=== PATIENT | male | born 1950 | race Caucasian/White ===

== ENCOUNTER 2017-05-27 08:22 | Emergency (ER) | payer MEDICARE, BC ==
[~2017-05-27] VITALS: Ht 170.2 cm; Wt 74.8 kg
[~2017-05-27 08:22] MED LIST: ALBU.083IS IH; ALBU3IS; ALBU3IS INH; ALBU90OI; ALBU90OI INH; ALBU90OI6 INH; ALBUIS IH; ALBUTEROL NEB; ALEN70 PO; ASPI81CH PO; AZIT250 PO; AZIT500 PO; Augmentin 500-1 EACH PO; BENZ100A PO; BUDE6HFA INH; Bactrim Ds Tab1 EACH PO; CEFP200 PO; CEPH500 PO; CITA20 PO; CLIN300; DIAZ2 PO; DOCU100 PO; DOXY100 PO; EQ EYE ALLERGY15 ML OP; FAMO20 PO; FLUT44OIA; FURO20 PO; GUAI600T33 PO; GUAIFENESIN-CODE5 ML PO; HYDACE5 PO; HYDPAM50 PO; IBUP600 PO; KETO5OP; KETO5OP XX; LEVFLO500 PO; LEVOFLOXACIN750 MG PO; MUCUS ER600 M1 PO; NASACORT10.8 ML; NYST100SU; NYST100SU MT; NYST100SU PO; NYSTATIN PO; Norco 5-325 Ta1 EACH PO; OFEV150 MG PO; OXYACE5T PO; POLY17UD PO; PRED10 PO; PRED20; PRED20 PO; Prednisone20 MG PO; Prilosec Otc20 MG PO; ROBITUSSIN PO; SACC250C; SILD25T PO; SILDENAFIL20 MG PO; SODCHL.65S; SULTRIDS; SULTRIDS PO; SULTRISS; Sulfamethoxazo1 EAC4 PO; Symbicort 16010.2 GM; TIOT18 INH; Ventolin Soln3 ML; Zithromax250 MG PO
[2017-05-27 09:28] LABS: Hematocrit 33.4 % (37.0-53.0); Hemoglobin 10.6 g/dL (13.5-17.5); Mean Corpuscular HGB 31.5 pg (26.0-34.0); Mean Corpuscular HGB Conc 31.7 g/dL (31.5-36.5); Mean Corpuscular Volume 99 fL (80-100); Mean Platelet Volume 9.7 fL (9.1-12.4); Platelet Count 190 K/mm3 (150-400); Red Blood Cell Count 3.37 M/mm3 (4.30-5.90); White Blood Cell Count 7.87 K/mm3 (4.00-11.30)
[2017-05-27] MEDS ORDERED: MYCO250 PO (09:41)
[2017-05-27] MEDS ORDERED: ALEN70 PO (09:41)
[2017-05-27] MEDS ORDERED: TAMS.4ER PO (09:42)
[2017-05-27] MEDS ORDERED: FLUC200 PO (09:42)
[2017-05-27] MEDS ORDERED: TACR1 PO (09:42)
[2017-05-27 09:44] LABS: Alanine Aminotransfer (ALT/SGP 20 U/L (12-78); Albumin, Blood 3.7 g/dL (3.4-5.0); Albumin/Globulin Ratio 1.1 (0.8-1.8); Alk Phos 70 U/L (50-136); Anion Gap 8 mmol/L (6-16); Aspartate Aminotrans (AST/SGOT 16 U/L (12-37); Bilirubin, Total 0.3 mg/dL (0.1-1.0); Blood Urea Nitrogen 19 mg/dL (8-24); Bun/Creatinine Ratio 14.8 (12.0-20.0); CO2, Blood 18 mmol/L (21-32); Calcium, Blood 8.2 mg/dL (8.5-10.1); Chloride, Blood 114 mmol/L (98-108); Creatinine, Blood 1.28 mg/dL (0.60-1.20); Globulin, Blood 3.5 g/dL (2.2-4.0); Glomerular Filtration Rate 60 (60-); Glucose, Blood 116 mg/dL (70-99); Sodium, Blood 140 mmol/L (136-145); Total Protein, Blood 7.2 g/dL (6.4-8.2); Troponin I <0.015 ng/mL (0.000-0.040)
[2017-05-27] MEDS ORDERED: Omeprazole20 M1 PO (09:44)
[2017-05-27] MEDS ORDERED: Aspirin EC81 MG PO (09:44)
[2017-05-27] MEDS ORDERED: ALBU2.5V5 NEB (09:45)
[2017-05-27] MEDS ORDERED: LEVSOD100 PO (09:45)
[2017-05-27] MEDS ORDERED: MELA3 PO (09:45)
[2017-05-27 09:52] LABS: BAND PERCENT MAN 3 % (0-8); BASOPHILS PERCENT MAN 0 % (0-2); EOSINOPHILS ABSOLUTE MAN 0.07 K/mm3 (0.00-0.68); EOSINOPHILS PERCENT MAN 1 % (0-6); LYMPHOCYTES ABSOLUTE MAN 0.23 K/mm3 (0.84-5.20); LYMPHOCYTES PERCENT MAN 3 % (21-46); MONOCYTES ABSOLUTE MAN 0.62 K/mm3 (0.16-1.47); MONOCYTES PERCENT MAN 8 % (4-13); NEUTROPHILS ABSOLUTE MAN 6.92 K/mm3 (1.96-9.15); SEG NEUTROPHILS PERCENT MAN 85 % (41-73); TOTAL CELLS COUNTED 100
[2017-05-27] MEDS ORDERED: Zofran4 MG PO (11:01)
[2017-09-14] MEDS ORDERED: Bactrim Ds Tab1 EACH PO (16:16)
[2017-09-14] MEDS ORDERED: AZIT250 PO (16:16)
[2017-09-14] MEDS ORDERED: Mucinex600 MG PO (17:51)
== END 2017-05-27 11:25 | disposition home or self-care (01) ==
LOC: ER 08:22
PROVIDERS: Physician Assistant
DX: J40 Bronchitis, not specified as acute or chronic (principal); R11.2 Nausea with vomiting, unspecified; Z91.14 Patient's other noncompliance with medication regimen; Z79.82 Long term (current) use of aspirin; Z79.52 Long term (current) use of systemic steroids; Z79.899 Other long term (current) drug therapy; Z79.51 Long term (current) use of inhaled steroids; Z87.01 Personal history of pneumonia (recurrent); Z87.891 Personal history of nicotine dependence; Z94.2 Lung transplant status
CPT/HCPCS: 36415; 71046; 80053; 83605; 84484; 85025; 87040; 93005; 93010; 94640; 96361; 96374; 99284; J2405; J7030

== ENCOUNTER 2017-11-20 19:26 | Emergency (ER) | payer MEDICARE ==
[~2017-11-20] VITALS: Ht 167.6 cm; Wt 88.5 kg
[~2017-11-20 19:26] MED LIST changes: +ALBU2.5V5 NEB; +Aspirin EC81 MG PO; +FLUC200 PO; +LEVSOD100 PO; +MELA3 PO; +MYCO250 PO; +Mucinex600 MG PO; +Omeprazole20 M1 PO; +TACR1 PO; +TAMS.4ER PO; +Zofran4 MG PO
[2017-11-20] MEDS ORDERED: MELA3 PO (19:41)
[2017-11-20] MEDS ORDERED: Hair, Skin & N1 EACH PO (19:42)
[2017-11-20] MEDS ORDERED: CHOL10002 PO (19:42)
[2017-11-20 20:10] LABS: BASOPHILS ABSOLUTE AUTO 0.02 K/mm3 (0.00-0.23); BASOPHILS PERCENT AUTO 1 % (0-2); EOSINOPHILS ABSOLUTE AUTO 0.03 K/mm3 (0.00-0.68); EOSINOPHILS PERCENT AUTO 1 % (0-6); Hematocrit 32.9 % (37.0-53.0); Hemoglobin 10.9 g/dL (13.5-17.5); IMMATURE GRAN ABSOLUTE AUTO 0.13 K/mm3 (0.00-0.10); IMMATURE GRAN PERCENT AUTO 3 % (0-1); LYMPHOCYTES ABSOLUTE AUTO 0.92 K/mm3 (0.84-5.20); LYMPHOCYTES PERCENT AUTO 23 % (21-46); MONOCYTES ABSOLUTE AUTO 0.52 K/mm3 (0.16-1.47); MONOCYTES PERCENT AUTO 13 % (4-13); Mean Corpuscular HGB 31.6 pg (26.0-34.0); Mean Corpuscular HGB Conc 33.1 g/dL (31.5-36.5); Mean Corpuscular Volume 95 fL (80-100); Mean Platelet Volume 9.2 fL (9.1-12.4); NEUTROPHILS ABSOLUTE AUTO 2.32 K/mm3 (1.96-9.15); NEUTROPHILS PERCENT AUTO 59 % (41-73); Platelet Count 194 K/mm3 (150-400); RDW Coefficient Variation 12.4 % (11.7-14.2); RDW Standard Deviation 42.9 fL (35.1-46.3); Red Blood Cell Count 3.45 M/mm3 (4.30-5.90); White Blood Cell Count 3.94 K/mm3 (4.00-11.30)
[2017-11-20 20:30] LABS: Albumin, Blood 3.8 g/dL (3.4-5.0); Albumin/Globulin Ratio 1.2 (0.8-1.8); Bilirubin, Total 0.3 mg/dL (0.1-1.0); Bun/Creatinine Ratio 15.8 (12.0-20.0); Calcium, Blood 7.9 mg/dL (8.5-10.1); Creatinine, Blood 1.39 mg/dL (0.60-1.20); Globulin, Blood 3.3 g/dL (2.2-4.0); Total Protein, Blood 7.1 g/dL (6.4-8.2)
== END 2017-11-20 21:29 | disposition home or self-care (01) ==
LOC: ER 19:26
PROVIDERS: Physician Assistant
DX: M54.5 Low back pain (principal); G89.29 Other chronic pain; K21.9 Gastro-esophageal reflux disease without esophagitis; Z87.891 Personal history of nicotine dependence; Z79.899 Other long term (current) drug therapy; Z79.51 Long term (current) use of inhaled steroids; Z79.52 Long term (current) use of systemic steroids
CPT/HCPCS: 36415; 76770; 80053; 83690; 85025; 96361; 96374; 96375; 99284-25; J1885; J3010; J7030

== ENCOUNTER 2018-04-26 11:51 | Emergency (ER) | payer MEDICARE ==
[~2018-04-26] VITALS: Ht 167.6 cm; Wt 83.9 kg
[~2018-04-26 11:51] MED LIST changes: +CHOL10002 PO; +Hair, Skin & N1 EACH PO
[2018-04-26 12:34] LABS: BASOPHILS ABSOLUTE AUTO 0.07 K/mm3 (0.00-0.23); BASOPHILS PERCENT AUTO 1 % (0-2); EOSINOPHILS ABSOLUTE AUTO 0.14 K/mm3 (0.00-0.68); EOSINOPHILS PERCENT AUTO 2 % (0-6); Hematocrit 39.3 % (37.0-53.0); Hemoglobin 13.2 g/dL (13.5-17.5); IMMATURE GRAN ABSOLUTE AUTO 0.25 K/mm3 (0.00-0.10); IMMATURE GRAN PERCENT AUTO 3 % (0-1); LYMPHOCYTES ABSOLUTE AUTO 1.89 K/mm3 (0.84-5.20); LYMPHOCYTES PERCENT AUTO 21 % (21-46); MONOCYTES ABSOLUTE AUTO 1.55 K/mm3 (0.16-1.47); MONOCYTES PERCENT AUTO 17 % (4-13); Mean Corpuscular HGB Conc 33.6 g/dL (31.5-36.5); Mean Corpuscular Volume 98 fL (80-100); Mean Platelet Volume 9.3 fL (9.1-12.4); NEUTROPHILS ABSOLUTE AUTO 5.31 K/mm3 (1.96-9.15); NEUTROPHILS PERCENT AUTO 58 % (41-73); Platelet Count 233 K/mm3 (150-400); White Blood Cell Count 9.21 K/mm3 (4.00-11.30)
[2018-04-26 12:49] LABS: Albumin, Blood 3.7 g/dL (3.4-5.0); Albumin/Globulin Ratio 0.9 (0.8-1.8); Bilirubin, Total 0.4 mg/dL (0.1-1.0); Bun/Creatinine Ratio 14.1 (12.0-20.0); Calcium, Blood 8.7 mg/dL (8.5-10.1); Creatinine, Blood 1.35 mg/dL (0.60-1.20); Globulin, Blood 3.9 g/dL (2.2-4.0); Potassium, Blood 4.2 mmol/L (3.5-5.5); Total Protein, Blood 7.6 g/dL (6.4-8.2)
[2018-04-26] MEDS ORDERED: ONDA4ODT MM (12:59)
[2018-04-26] MEDS ORDERED: GUAI600T33 PO (12:59)
[2018-04-26] MEDS ORDERED: Bactrim Ds Tab1 EACH PO (13:00)
[2018-04-26] MEDS ORDERED: ASPI325 PO (13:00)
[2018-04-26] MEDS ORDERED: Cleocin HCl300 MG PO (15:37)
== END 2018-04-26 15:59 | disposition home or self-care (01) ==
LOC: ER 11:51
PROVIDERS: Emergency Medicine
DX: L03.311 Cellulitis of abdominal wall (principal); L02.211 Cutaneous abscess of abdominal wall; Z79.899 Other long term (current) drug therapy; Z79.52 Long term (current) use of systemic steroids; Z79.82 Long term (current) use of aspirin; K21.9 Gastro-esophageal reflux disease without esophagitis
CPT/HCPCS: 10061; 36415; 80053; 85025; 87070; 87075; 87205; 96374-59; 96375-59; 99283-25; J2405; J3010

== ENCOUNTER 2018-08-18 06:30 | Observation (INO) | payer MEDICARE ==
[~2018-08-18] VITALS: Ht 167.6 cm; Wt 83.1 kg
[~2018-08-18 06:30] MED LIST changes: -CHOL10002 PO; +Cleocin HCl300 MG PO; -Hair, Skin & N1 EACH PO; -LEVSOD100 PO; +LEVSOD112 PO; +ONDA4ODT MM; +PRED5 PO
[2018-08-18 07:03] LABS: Albumin, Blood 3.7 g/dL (3.4-5.0); Albumin/Globulin Ratio 1.1 (0.8-1.8); Bilirubin, Total 0.3 mg/dL (0.1-1.0); Calcium, Blood 8.3 mg/dL (8.5-10.1); Creatinine, Blood 1.44 mg/dL (0.60-1.20); Globulin, Blood 3.3 g/dL (2.2-4.0); Potassium, Blood 4.1 mmol/L (3.5-5.5)
[2018-08-18 07:05] LABS: BASOPHILS ABSOLUTE AUTO 0.03 K/mm3 (0.00-0.23); BASOPHILS PERCENT AUTO 0 % (0-2); EOSINOPHILS ABSOLUTE AUTO 0.12 K/mm3 (0.00-0.68); EOSINOPHILS PERCENT AUTO 2 % (0-6); Hematocrit 33.8 % (37.0-53.0); Hemoglobin 11.4 g/dL (13.5-17.5); IMMATURE GRAN PERCENT AUTO 2 % (0-1); LYMPHOCYTES ABSOLUTE AUTO 1.42 K/mm3 (0.84-5.20); LYMPHOCYTES PERCENT AUTO 21 % (21-46); MONOCYTES ABSOLUTE AUTO 0.66 K/mm3 (0.16-1.47); MONOCYTES PERCENT AUTO 10 % (4-13); Mean Corpuscular HGB 31.6 pg (26.0-34.0); Mean Corpuscular HGB Conc 33.7 g/dL (31.5-36.5); Mean Corpuscular Volume 94 fL (80-100); Mean Platelet Volume 9.3 fL (9.1-12.4); NEUTROPHILS ABSOLUTE AUTO 4.46 K/mm3 (1.96-9.15); NEUTROPHILS PERCENT AUTO 66 % (41-73); Platelet Count 212 K/mm3 (150-400); RDW Coefficient Variation 12.2 % (11.7-14.2); RDW Standard Deviation 41.9 fL (35.1-46.3); Red Blood Cell Count 3.61 M/mm3 (4.30-5.90); White Blood Cell Count 6.79 K/mm3 (4.00-11.30)
[2018-08-18] MEDS ORDERED: BREO ELLIPTA 11 EACH INH (07:18)
[2018-08-18] MEDS ORDERED: SIRO1 PO (07:18)
[2018-08-18] MEDS ORDERED: CALC.25 PO (12:13)
[2018-08-18] MEDS ORDERED: Bactrim 400-801 EACH PO (12:14)
[2018-08-18] MEDS ORDERED: AZIT250 PO (12:15)
[2018-08-18] MEDS ORDERED: Ketoconazole120 ML TOP (12:18)
[2018-08-18] MEDS ORDERED: VALGANCICLOVIR450 MG PO (12:19)
[2018-08-18] MEDS ORDERED: SERT25 PO (12:20)
[2018-08-18] MEDS ORDERED: Pantoprazole So40 MG PO (12:21)
[2018-08-18] MEDS ORDERED: TRAM50 PO (12:21)
[2018-08-18] MEDS ORDERED: ALBU90OI6 INH (12:25)
[2018-08-18] MEDS ORDERED: Flonase 0.05% N16 GM (12:28)
[2018-08-18] MEDS ORDERED: LO-DOSE ASPIRIN81 MG PO (14:08)
[2018-08-18] MEDS ORDERED: Hair, Skin & N1 EACH PO (14:09)
[2018-08-18] MEDS ORDERED: CHOL10002 PO (14:09)
[2018-08-18] MEDS ORDERED: MELA3 PO (14:09)
--- NOTE | 2018-08-18 15:08 | NUR ---
08/18/18 1508 Rob Lund History, Chart, Medications and Allergies reviewed before start of procedure.MONITOR INTACT WITH CONTINUOUS PULSE OXIMETRY AND INTERMITTENT BP.3-LEAD EKG REVIEWED WITH PHYSICIAN PRIOR TO START OF PROCEDURE.O2 VIA N/C INTACT THROUGHOUT SEDATION/PROCEDURE. Patient confirms NPO status and agrees with scheduled surgery.PATIENT DETERMINED TO BE ASA APPROPRIATE FOR PROPOFOL SEDATION PRIOR TO START OF PROCEDURE BY DR. STOCKTON.
--- NOTE | 2018-08-18 15:12 | NUR ---
1405 PT ADMITTED TO ICU -14 PCU PT AND MOVED TO BED FROM STRETCHER. PT IS QUITE ANXIOUS TALKING FAST AND SOMEWHAT OUT OF BREATH. PT IS ON RA AND RR 26-29 WITH SATS 96-7% WITH LUNGS COARSE T/O AND DIM IN R BASE. DR STOCKTON IS IN TO SEE PT AND ASSESS FOR NEED TO BRONCH YET TO BE DETERMINED. PT IN ROOM AND ASSISTING WITH PT HX. 1500 PT TO DAY SURG FOR BRONCH PER ASHLEY. PT SBP IS NOTED ELEVATED AND SEENS TO BE SOMEWHAT ANXIETY DRIVEN, WILL FOLLOW PT RETURNS.
--- NOTE | 2018-08-18 15:45 | NUR ---
PT RETURNED TO ICU-14 FROM DAY SURG. PT AND FAMILY TO TALK WITH DR STOCKTON. VS NOTED AND SUSAN FLORIAN.
[2018-08-18 18:09] LABS: Adenovirus Not Detected (NOT DETECT); Bordetella pertussis Not Detected (NOT DETECT); Chlamydophila pneumoniae Not Detected (NOT DETECT); Coronavirus 229E Not Detected (NOT DETECT); Coronavirus HKU1 Not Detected (NOT DETECT); Coronavirus NL63 Not Detected (NOT DETECT); Coronavirus OC43 Not Detected (NOT DETECT); Human Metapneumovirus Not Detected (NOT DETECT); Human Rhinovirus/Enterovirus Detected (NOT DETECT); Influenza A Not Detected (NOT DETECT); Influenza A/2009-H1 Not Detected (NOT DETECT); Influenza A/H1 Not Detected (NOT DETECT); Influenza A/H3 Not Detected (NOT DETECT); Influenza B Not Detected (NOT DETECT); Mycoplasma pneumoniae Not Detected (NOT DETECT); Parainfluenza Virus 1 Not Detected (NOT DETECT); Parainfluenza Virus 2 Not Detected (NOT DETECT); Parainfluenza Virus 3 Not Detected (NOT DETECT); Parainfluenza Virus 4 Not Detected (NOT DETECT); Respiratory Syncytial Virus Not Detected (NOT DETECT)
--- NOTE | 2018-08-18 18:46 | NUR ---
PT VS HAVE BEEN SL ELEVATED AT TIMES NOTED. PT HAS RECOVERED FROM BRONCH WELL AND TAKING PO W/O DISTRESS. FAMILY HAS BEEN IN AND PT REMAINS ANXIOUS. ATIVAN PO GIVEN NOTED. PT UP TO TOILET AND VOIDED, BUT SOB W/O DROP IN SATS BUT INC WOB. OTHERWWISE VERY TALKITIVE.
--- NOTE | 2018-08-18 21:00 | NUR ---
PT AWAKE, TALKING ON PHONE W FAMILY. PT NOTED W INCREASED WOB W CONVERSATION. DENIES SOB, PT SATS MID 90'S ON RA. USING FLUTTER VALVE & SELF SUCTIONS NEEDED. TAKING PO WO DIFFICULTY.
[2018-08-19 03:49] LABS: BASOPHILS ABSOLUTE AUTO 0.01 K/mm3 (0.00-0.23); BASOPHILS PERCENT AUTO 0 % (0-2); EOSINOPHILS PERCENT AUTO 0 % (0-6); Hematocrit 31.5 % (37.0-53.0); Hemoglobin 10.8 g/dL (13.5-17.5); IMMATURE GRAN ABSOLUTE AUTO 0.11 K/mm3 (0.00-0.10); IMMATURE GRAN PERCENT AUTO 1 % (0-1); LYMPHOCYTES ABSOLUTE AUTO 0.39 K/mm3 (0.84-5.20); LYMPHOCYTES PERCENT AUTO 3 % (21-46); MONOCYTES ABSOLUTE AUTO 0.54 K/mm3 (0.16-1.47); MONOCYTES PERCENT AUTO 4 % (4-13); Mean Corpuscular HGB 32.5 pg (26.0-34.0); Mean Corpuscular HGB Conc 34.3 g/dL (31.5-36.5); Mean Corpuscular Volume 95 fL (80-100); Mean Platelet Volume 9.5 fL (9.1-12.4); NEUTROPHILS ABSOLUTE AUTO 12.55 K/mm3 (1.96-9.15); NEUTROPHILS PERCENT AUTO 92 % (41-73); Platelet Count 184 K/mm3 (150-400); RDW Coefficient Variation 11.9 % (11.7-14.2); RDW Standard Deviation 41.7 fL (35.1-46.3); Red Blood Cell Count 3.32 M/mm3 (4.30-5.90)
--- NOTE | 2018-08-19 04:10 | NUR ---
PT HAS BEEN SLEEPING, WAS AWAKENED FOR UDN TX. UP TO VOID. DENIES NEEDS OR DISCOMFORT. CONT ON RA & USING FLUTTER VALVE NEEDED. VSS.
[2018-08-19 04:12] LABS: Albumin, Blood 3.3 g/dL (3.4-5.0); Albumin/Globulin Ratio 1.1 (0.8-1.8); Bilirubin, Total 0.4 mg/dL (0.1-1.0); Bun/Creatinine Ratio 21.2 (12.0-20.0); Calcium, Blood 7.8 mg/dL (8.5-10.1); Creatinine, Blood 1.56 mg/dL (0.60-1.20); Globulin, Blood 3.1 g/dL (2.2-4.0); Magnesium, Blood 2.1 mg/dL (1.6-2.4); Potassium, Blood 4.9 mmol/L (3.5-5.5); Total Protein, Blood 6.4 g/dL (6.4-8.2)
--- NOTE | 2018-08-19 07:00 | NUR ---
ASSUMED CARE OF PT. PT IS ALERT AND ORIENTED. NOTED TO HAVE SHORTNESS OF BREATH MOSTLY WITH ACTIVITY. PT IS ON 98% ON ROOM AIR. WILL FAICLITATE APPOINTMENT WITH TRANSPLANT TEAM IN [place].
--- NOTE | 2018-08-19 09:30 | NUR ---
SEEN BY DR. STOCKTON AND DR. CAPELLAN ON DIFFERENT TIMES. UPDATED THEM OF PT'S TRANSFER.
--- NOTE | 2018-08-19 11:30 | NUR ---
GOT A RESPONSE FROM TRANSPLANT TEAM IN [place]. PT HAVE AN APPOINTMENT WITH DR. ROSSI ON SEPTEMBER 11. RUEL STOCKTON, DR. CAPELLAN & TONEY FELL CUTTER WERE NOTIFIED REGARDING PT'S APPOINMENT WITH LUNG TRANSPLANT TEAM. PT WILL BE DISCHARGE TODAY.
[2018-08-19] MEDS ORDERED: ACET325 PO (14:36)
[2018-08-19] MEDS ORDERED: GUAI600T33 PO (14:38)
[2018-08-19] MEDS ORDERED: ONDA4ODT SL (14:49)
--- NOTE | 2018-08-19 16:00 | NUR ---
1553-PT WAS DISCHARGED AT THIS TIME. DISCHARGE INSTRUCTIONS WERE READ AND GIVEN TO PT AND SPOUSE. IV WAS DISCONTINUED.
[2018-08-20 17:06] LABS: CMV QUANT DNA PCR (PLASMA) Negative (Negative)
== END 2018-08-19 15:55 | disposition home or self-care (01) ==
LOC: ER 06:30 → ICUW 06:31 → ERHOLD 06:31 → ICUW 13:49
PROVIDERS: Emergency Medicine; Internal Medicine Critical Care Medicine; ADMIT Family Medicine
PROC: 0BJ08ZZ Inspection of Tracheobronchial Tree, Via Natural or Artificial Opening Endoscopic (ICD-10-PCS; principal; 2018-08-18 15:00)
DX: J96.21 Acute and chronic respiratory failure with hypoxia (principal); N18.3 Chronic kidney disease, stage 3 (moderate); F41.9 Anxiety disorder, unspecified; K21.9 Gastro-esophageal reflux disease without esophagitis; E03.9 Hypothyroidism, unspecified; G47.33 Obstructive sleep apnea (adult) (pediatric); I27.20 Pulmonary hypertension, unspecified; Z99.89 Dependence on other enabling machines and devices; Z87.891 Personal history of nicotine dependence; Z79.899 Other long term (current) drug therapy; Z94.2 Lung transplant status
CPT/HCPCS: 36415; 71045; 80053; 83735; 84145; 84443; 84484; 85025; 87070; 87077; 87081; 87185; 87205; 87486; 87497; 87581; 87633; 87798; 93005; 93010; 94640; 94644; 94667; 96361; 96372; 96374; 96375; 99285-25; A9270; C9113; G0008; G0378; J1650; J2704; J2930; J7030; J7120; J7507; J7512; J7520

== ENCOUNTER 2018-08-21 10:39 | Inpatient (IN) | payer MEDICARE ==
[~2018-08-21] VITALS: Ht 167.6 cm; Wt 82.9 kg
[~2018-08-21 10:39] MED LIST changes: +ACET325 PO; +BREO ELLIPTA 11 EACH INH; +Bactrim 400-801 EACH PO; +CALC.25 PO; +CHOL10002 PO; +Flonase 0.05% N16 GM; +Hair, Skin & N1 EACH PO; +Ketoconazole120 ML TOP; +LO-DOSE ASPIRIN81 MG PO; +ONDA4ODT SL; +Pantoprazole So40 MG PO; +SERT25 PO; +SIRO1 PO; +TRAM50 PO; +VALGANCICLOVIR450 MG PO
[2018-08-21 11:45] LABS: BASOPHILS ABSOLUTE AUTO 0.03 K/mm3 (0.00-0.23); BASOPHILS PERCENT AUTO 0 % (0-2); EOSINOPHILS PERCENT AUTO 1 % (0-6); Hematocrit 34.8 % (37.0-53.0); Hemoglobin 11.7 g/dL (13.5-17.5); IMMATURE GRAN ABSOLUTE AUTO 0.21 K/mm3 (0.00-0.10); IMMATURE GRAN PERCENT AUTO 2 % (0-1); LYMPHOCYTES ABSOLUTE AUTO 1.04 K/mm3 (0.84-5.20); LYMPHOCYTES PERCENT AUTO 9 % (21-46); MONOCYTES ABSOLUTE AUTO 0.79 K/mm3 (0.16-1.47); MONOCYTES PERCENT AUTO 7 % (4-13); Mean Corpuscular HGB 32.2 pg (26.0-34.0); Mean Corpuscular HGB Conc 33.6 g/dL (31.5-36.5); Mean Corpuscular Volume 96 fL (80-100); Mean Platelet Volume 9.2 fL (9.1-12.4); NEUTROPHILS ABSOLUTE AUTO 9.41 K/mm3 (1.96-9.15); NEUTROPHILS PERCENT AUTO 81 % (41-73); Platelet Count 186 K/mm3 (150-400); RDW Coefficient Variation 12.3 % (11.7-14.2); RDW Standard Deviation 43.1 fL (35.1-46.3); Red Blood Cell Count 3.63 M/mm3 (4.30-5.90); White Blood Cell Count 11.58 K/mm3 (4.00-11.30)
[2018-08-21 12:06] LABS: Albumin, Blood 3.4 g/dL (3.4-5.0); Albumin/Globulin Ratio 1.1 (0.8-1.8); Bilirubin, Total 0.5 mg/dL (0.1-1.0); Bun/Creatinine Ratio 15.7 (12.0-20.0); Calcium, Blood 8.1 mg/dL (8.5-10.1); Creatinine, Blood 1.27 mg/dL (0.60-1.20); Globulin, Blood 3.2 g/dL (2.2-4.0); Potassium, Blood 3.8 mmol/L (3.5-5.5); Total Protein, Blood 6.6 g/dL (6.4-8.2)
[2018-08-21 12:39] LABS: Source, Urine Catheter
[2018-08-21 12:49] LABS: Bilirubin, Urine Neg (Neg); Blood, Urine 1+ (Neg); Glucose Qualitative, Urine Neg (Neg); Ketones, Urine 2+ (Neg); Leukocyte Esterase, Urine Neg (Neg); Nitrite, Urine Neg (Neg); Protein, Urine 1+ (Neg); Specific Gravity, Urine 1.015 (1.003-1.022); Urobilinogen, Urine NORM (Normal)
[2018-08-21 13:05] LABS: Appearance, Urine Clear (Clear); Color, Urine Yellow (P-Yellow)
[2018-08-21 13:08] LABS: White Blood Cells, Urine 0-2 /hpf (0-5)
[2018-08-21 13:09] LABS: Bacteria Few /hpf; Red Blood Cells, Urine 0-2 /hpf (0-2); Squamous Epithelial Cells Rare /hpf (Few)
[2018-08-21 17:26] LABS: Adenovirus Not Detected (NOT DETECT); Bordetella pertussis Not Detected (NOT DETECT); Chlamydophila pneumoniae Not Detected (NOT DETECT); Coronavirus 229E Not Detected (NOT DETECT); Coronavirus HKU1 Not Detected (NOT DETECT); Coronavirus NL63 Not Detected (NOT DETECT); Coronavirus OC43 Not Detected (NOT DETECT); Human Metapneumovirus Not Detected (NOT DETECT); Human Rhinovirus/Enterovirus Not Detected (NOT DETECT); Influenza A Not Detected (NOT DETECT); Influenza A/2009-H1 Not Detected (NOT DETECT); Influenza A/H1 Not Detected (NOT DETECT); Influenza A/H3 Not Detected (NOT DETECT); Influenza B Not Detected (NOT DETECT); Mycoplasma pneumoniae Not Detected (NOT DETECT); Parainfluenza Virus 1 Not Detected (NOT DETECT); Parainfluenza Virus 2 Not Detected (NOT DETECT); Parainfluenza Virus 3 Not Detected (NOT DETECT); Parainfluenza Virus 4 Not Detected (NOT DETECT); Respiratory Syncytial Virus Not Detected (NOT DETECT)
[2018-08-22 04:46] LABS: BASOPHILS ABSOLUTE AUTO 0.05 K/mm3 (0.00-0.23); BASOPHILS PERCENT AUTO 1 % (0-2); EOSINOPHILS PERCENT AUTO 1 % (0-6); Hematocrit 33.5 % (37.0-53.0); IMMATURE GRAN ABSOLUTE AUTO 0.23 K/mm3 (0.00-0.10); IMMATURE GRAN PERCENT AUTO 3 % (0-1); LYMPHOCYTES ABSOLUTE AUTO 1.21 K/mm3 (0.84-5.20); LYMPHOCYTES PERCENT AUTO 13 % (21-46); MONOCYTES ABSOLUTE AUTO 0.77 K/mm3 (0.16-1.47); MONOCYTES PERCENT AUTO 9 % (4-13); Mean Corpuscular HGB 31.9 pg (26.0-34.0); Mean Corpuscular HGB Conc 32.8 g/dL (31.5-36.5); Mean Corpuscular Volume 97 fL (80-100); Mean Platelet Volume 9.5 fL (9.1-12.4); NEUTROPHILS ABSOLUTE AUTO 6.68 K/mm3 (1.96-9.15); NEUTROPHILS PERCENT AUTO 74 % (41-73); Platelet Count 182 K/mm3 (150-400); RDW Coefficient Variation 12.2 % (11.7-14.2); RDW Standard Deviation 43.5 fL (35.1-46.3); Red Blood Cell Count 3.45 M/mm3 (4.30-5.90); White Blood Cell Count 9.04 K/mm3 (4.00-11.30)
[2018-08-22 05:07] LABS: Anion Gap 6 mmol/L (6-16); Blood Urea Nitrogen 19 mg/dL (8-24); CO2, Blood 23 mmol/L (21-32); Calcium, Blood 7.8 mg/dL (8.5-10.1); Chloride, Blood 108 mmol/L (98-108); Creatinine, Blood 1.19 mg/dL (0.60-1.20); Glomerular Filtration Rate >60 (60-); Glucose, Blood 107 mg/dL (70-99); Potassium, Blood 4.3 mmol/L (3.5-5.5); Sodium, Blood 137 mmol/L (136-145)
[2018-08-23 05:05] LABS: BASOPHILS ABSOLUTE AUTO 0.04 K/mm3 (0.00-0.23); BASOPHILS PERCENT AUTO 0 % (0-2); EOSINOPHILS ABSOLUTE AUTO 0.12 K/mm3 (0.00-0.68); EOSINOPHILS PERCENT AUTO 1 % (0-6); Hematocrit 32.3 % (37.0-53.0); Hemoglobin 10.9 g/dL (13.5-17.5); IMMATURE GRAN ABSOLUTE AUTO 0.47 K/mm3 (0.00-0.10); IMMATURE GRAN PERCENT AUTO 5 % (0-1); LYMPHOCYTES ABSOLUTE AUTO 1.22 K/mm3 (0.84-5.20); LYMPHOCYTES PERCENT AUTO 13 % (21-46); MONOCYTES ABSOLUTE AUTO 1.02 K/mm3 (0.16-1.47); MONOCYTES PERCENT AUTO 11 % (4-13); Mean Corpuscular HGB 32.4 pg (26.0-34.0); Mean Corpuscular HGB Conc 33.7 g/dL (31.5-36.5); Mean Corpuscular Volume 96 fL (80-100); Mean Platelet Volume 9.6 fL (9.1-12.4); NEUTROPHILS ABSOLUTE AUTO 6.81 K/mm3 (1.96-9.15); NEUTROPHILS PERCENT AUTO 70 % (41-73); Platelet Count 202 K/mm3 (150-400); RDW Standard Deviation 41.9 fL (35.1-46.3); Red Blood Cell Count 3.36 M/mm3 (4.30-5.90); White Blood Cell Count 9.68 K/mm3 (4.00-11.30)
[2018-08-23 05:26] LABS: Albumin, Blood 2.9 g/dL (3.4-5.0); Anion Gap 7 mmol/L (6-16); Blood Urea Nitrogen 22 mg/dL (8-24); Bun/Creatinine Ratio 17.1 (12.0-20.0); CO2, Blood 22 mmol/L (21-32); Calcium, Blood 8.1 mg/dL (8.5-10.1); Chloride, Blood 105 mmol/L (98-108); Creatinine, Blood 1.29 mg/dL (0.60-1.20); Glomerular Filtration Rate 59 (60-); Glucose, Blood 118 mg/dL (70-99); Phosphorus, Blood 3.2 mg/dL (2.5-4.9); Potassium, Blood 4.3 mmol/L (3.5-5.5); Sodium, Blood 134 mmol/L (136-145)
[2018-08-24 04:36] LABS: BASOPHILS ABSOLUTE AUTO 0.01 K/mm3 (0.00-0.23); BASOPHILS PERCENT AUTO 0 % (0-2); EOSINOPHILS PERCENT AUTO 0 % (0-6); Hematocrit 31.7 % (37.0-53.0); Hemoglobin 11.2 g/dL (13.5-17.5); IMMATURE GRAN ABSOLUTE AUTO 0.36 K/mm3 (0.00-0.10); IMMATURE GRAN PERCENT AUTO 4 % (0-1); LYMPHOCYTES ABSOLUTE AUTO 0.36 K/mm3 (0.84-5.20); LYMPHOCYTES PERCENT AUTO 4 % (21-46); MONOCYTES ABSOLUTE AUTO 0.09 K/mm3 (0.16-1.47); MONOCYTES PERCENT AUTO 1 % (4-13); Mean Corpuscular HGB 32.1 pg (26.0-34.0); Mean Corpuscular HGB Conc 35.3 g/dL (31.5-36.5); Mean Platelet Volume 9.2 fL (9.1-12.4); NEUTROPHILS ABSOLUTE AUTO 8.11 K/mm3 (1.96-9.15); NEUTROPHILS PERCENT AUTO 91 % (41-73); Platelet Count 193 K/mm3 (150-400); RDW Coefficient Variation 11.8 % (11.7-14.2); RDW Standard Deviation 38.9 fL (35.1-46.3); Red Blood Cell Count 3.49 M/mm3 (4.30-5.90); White Blood Cell Count 8.93 K/mm3 (4.00-11.30)
[2018-08-24 04:50] LABS: Mean Corpuscular Volume 91 fL (80-100)
[2018-08-24 04:54] LABS: Anion Gap 8 mmol/L (6-16); Blood Urea Nitrogen 25 mg/dL (8-24); Bun/Creatinine Ratio 20.7 (12.0-20.0); CO2, Blood 22 mmol/L (21-32); Calcium, Blood 8.4 mg/dL (8.5-10.1); Chloride, Blood 100 mmol/L (98-108); Creatinine, Blood 1.21 mg/dL (0.60-1.20); Glomerular Filtration Rate >60 (60-); Glucose, Blood 213 mg/dL (70-99); Sodium, Blood 130 mmol/L (136-145)
[2018-08-24 17:06] LABS: CMV QUANT DNA PCR (PLASMA) Negative (Negative)
[2018-08-26] MEDS ORDERED: Vsl#3 Capsule1 EACH PO (14:04)
[2018-08-26] MEDS ORDERED: Miralax17 GM PO (14:08)
[2018-08-26] MEDS ORDERED: CENTRUM SILVER1 EAC2 PO (14:08)
[2018-08-26] MEDS ORDERED: LEVFLO500 PO (14:14)
== END 2018-08-26 16:16 | disposition home or self-care (01) | DRG 205 ==
LOC: ER 10:39 → MEDS 10:40 → ENPENDDIS 08-26 11:59 → MEDS 08-26 16:16
PROVIDERS: Emergency Medicine; Internal Medicine; ADMIT Hospitalist
DX: T86.812 Lung transplant infection (principal); J96.21 Acute and chronic respiratory failure with hypoxia; M81.0 Age-related osteoporosis without current pathological fracture; E03.9 Hypothyroidism, unspecified; Z85.46 Personal history of malignant neoplasm of prostate; E04.9 Nontoxic goiter, unspecified; N40.0 Benign prostatic hyperplasia without lower urinary tract symptoms; E83.51 Hypocalcemia; Z87.891 Personal history of nicotine dependence; R73.9 Hyperglycemia, unspecified; T38.0X5A Adverse effect of glucocorticoids and synthetic analogues, initial encounter; Y92.239 Unspecified place in hospital as the place of occurrence of the external cause; J84.10 Pulmonary fibrosis, unspecified; J20.9 Acute bronchitis, unspecified; Z99.81 Dependence on supplemental oxygen
CPT/HCPCS: 36415; 71046; 71260; 76705; 78227; 80048; 80053; 80069; 81001; 82330; 82947; 83605; 83690; 83735; 85025; 87040; 87086; 87486; 87497; 87581; 87633; 87798; 93005; 93010; 93306; 94640; 94760; 94761; 94762; 96365; 96372; 96375; 99285-25; A9270; A9537; C9113; G0378; J1650; J1956; J2405; J2920; J7030; J7050; J7507; J7512; J7520; Q9967

== ENCOUNTER 2018-09-26 09:14 | Inpatient (IN) | payer MEDICARE ==
[~2018-09-26] VITALS: Ht 167.6 cm; Wt 82.7 kg
[~2018-09-26 09:14] MED LIST changes: +CENTRUM SILVER1 EAC2 PO; +Miralax17 GM PO; +Vsl#3 Capsule1 EACH PO
[2018-09-26 10:06] LABS: BASOPHILS ABSOLUTE AUTO 0.04 K/mm3 (0.00-0.23); BASOPHILS PERCENT AUTO 0 % (0-2); EOSINOPHILS ABSOLUTE AUTO 0.06 K/mm3 (0.00-0.68); EOSINOPHILS PERCENT AUTO 1 % (0-6); Hematocrit 30.3 % (37.0-53.0); Hemoglobin 10.4 g/dL (13.5-17.5); IMMATURE GRAN ABSOLUTE AUTO 0.08 K/mm3 (0.00-0.10); IMMATURE GRAN PERCENT AUTO 1 % (0-1); LYMPHOCYTES ABSOLUTE AUTO 0.79 K/mm3 (0.84-5.20); LYMPHOCYTES PERCENT AUTO 7 % (21-46); MONOCYTES ABSOLUTE AUTO 0.15 K/mm3 (0.16-1.47); MONOCYTES PERCENT AUTO 1 % (4-13); Mean Corpuscular HGB 32.4 pg (26.0-34.0); Mean Corpuscular HGB Conc 34.3 g/dL (31.5-36.5); Mean Corpuscular Volume 94 fL (80-100); NEUTROPHILS ABSOLUTE AUTO 9.73 K/mm3 (1.96-9.15); NEUTROPHILS PERCENT AUTO 90 % (41-73); Platelet Count 162 K/mm3 (150-400); RDW Coefficient Variation 13.3 % (11.7-14.2); RDW Standard Deviation 45.9 fL (35.1-46.3); Red Blood Cell Count 3.21 M/mm3 (4.30-5.90); White Blood Cell Count 10.85 K/mm3 (4.00-11.30)
[2018-09-26 10:28] LABS: Alanine Aminotransfer (ALT/SGP 15 U/L (12-78); Albumin, Blood 3.4 g/dL (3.4-5.0); Albumin/Globulin Ratio 1.2 (0.8-1.8); Alk Phos 72 U/L (50-136); Anion Gap 7 mmol/L (6-16); Aspartate Aminotrans (AST/SGOT 11 U/L (12-37); Bilirubin, Total 0.4 mg/dL (0.1-1.0); Blood Urea Nitrogen 21 mg/dL (8-24); Bun/Creatinine Ratio 16.8 (12.0-20.0); CO2, Blood 21 mmol/L (21-32); Calcium, Blood 8.1 mg/dL (8.5-10.1); Chloride, Blood 110 mmol/L (98-108); Creatinine, Blood 1.25 mg/dL (0.60-1.20); Globulin, Blood 2.9 g/dL (2.2-4.0); Glomerular Filtration Rate >60 (60-); Glucose, Blood 114 mg/dL (70-99); Potassium, Blood 3.8 mmol/L (3.5-5.5); Sodium, Blood 138 mmol/L (136-145); Total Protein, Blood 6.3 g/dL (6.4-8.2); Troponin I <0.015 ng/mL (0.000-0.040)
[2018-09-26 11:14] LABS: PCO2 Arterial 31.5 mmHg (35-45); PO2 Arterial 67.2 mmHg (80-100); pH Blood Arterial 7.42 (7.35-7.45)
[2018-09-26 20:34] LABS: Adenovirus Not Detected (NOT DETECT); Bordetella pertussis Not Detected (NOT DETECT); Chlamydophila pneumoniae Not Detected (NOT DETECT); Coronavirus 229E Not Detected (NOT DETECT); Coronavirus HKU1 Not Detected (NOT DETECT); Coronavirus NL63 Not Detected (NOT DETECT); Coronavirus OC43 Not Detected (NOT DETECT); Human Metapneumovirus Not Detected (NOT DETECT); Human Rhinovirus/Enterovirus Not Detected (NOT DETECT); Influenza A Not Detected (NOT DETECT); Influenza A/2009-H1 Not Detected (NOT DETECT); Influenza A/H1 Not Detected (NOT DETECT); Influenza A/H3 Not Detected (NOT DETECT); Influenza B Not Detected (NOT DETECT); Mycoplasma pneumoniae Not Detected (NOT DETECT); Parainfluenza Virus 1 Not Detected (NOT DETECT); Parainfluenza Virus 2 Not Detected (NOT DETECT); Parainfluenza Virus 3 Not Detected (NOT DETECT); Parainfluenza Virus 4 Not Detected (NOT DETECT); Respiratory Syncytial Virus Not Detected (NOT DETECT)
[2018-09-27 05:16] LABS: Hematocrit 32.9 % (37.0-53.0); Hemoglobin 10.8 g/dL (13.5-17.5); Mean Corpuscular HGB 32.2 pg (26.0-34.0); Mean Corpuscular HGB Conc 32.8 g/dL (31.5-36.5); Mean Platelet Volume 9.8 fL (9.1-12.4); Platelet Count 154 K/mm3 (150-400); RDW Coefficient Variation 13.5 % (11.7-14.2); RDW Standard Deviation 48.6 fL (35.1-46.3); Red Blood Cell Count 3.35 M/mm3 (4.30-5.90); White Blood Cell Count 13.93 K/mm3 (4.00-11.30)
[2018-09-27 05:18] LABS: Mean Corpuscular Volume 98 fL (80-100)
[2018-09-27 05:35] LABS: Albumin, Blood 2.7 g/dL (3.4-5.0); Albumin/Globulin Ratio 0.8 (0.8-1.8); Bilirubin, Total 0.8 mg/dL (0.1-1.0); Calcium, Blood 7.6 mg/dL (8.5-10.1); Creatinine, Blood 1.65 mg/dL (0.60-1.20); Globulin, Blood 3.2 g/dL (2.2-4.0); Potassium, Blood 4.3 mmol/L (3.5-5.5); Total Protein, Blood 5.9 g/dL (6.4-8.2)
[2018-09-27 05:39] LABS: BAND PERCENT MAN 19 % (0-8); BASOPHILS PERCENT MAN 0 % (0-2); EOSINOPHILS PERCENT MAN 0 % (0-6); LYMPHOCYTES ABSOLUTE MAN 0.83 K/mm3 (0.84-5.20); LYMPHOCYTES PERCENT MAN 6 % (21-46); MONOCYTES ABSOLUTE MAN 0.27 K/mm3 (0.16-1.47); MONOCYTES PERCENT MAN 2 % (4-13); NEUTROPHILS ABSOLUTE MAN 12.81 K/mm3 (1.96-9.15); SEG NEUTROPHILS PERCENT MAN 73 % (41-73); TOTAL CELLS COUNTED 100
[2018-09-27 08:47] LABS: Vancomycin, Trough 17.2 ug/mL (5.0-10.0)
[2018-09-27 11:14] LABS: Adenovirus F 40/41 Not Detected (NOT DETECT); Astrovirus Not Detected (NOT DETECT); Campylobacter Sp Not Detected (NOT DETECT); Cryptosporidium Not Detected (NOT DETECT); Cyclospora Cayetanensis Not Detected (NOT DETECT); E. Coli O157 Not Detected (NOT DETECT); Entamoeba Histolytica Not Detected (NOT DETECT); Enteroaggregative E. coli-EAEC Not Detected (NOT DETECT); Enteropathogenic E. coli-EPEC Not Detected (NOT DETECT); Enterotoxigenic E. coli-ETEC Not Detected (NOT DETECT); Giardia Lamblia Not Detected (NOT DETECT); Norovirus GI/GII Not Detected (NOT DETECT); Plesiomonas Shigelloides Not Detected (NOT DETECT); Rotavirus A Not Detected (NOT DETECT); Salmonella Sp Not Detected (NOT DETECT); Sapovirus Not Detected (NOT DETECT); Shiga Toxin-prod E. coli-STEC Not Detected (NOT DETECT); Shigella/Enteroin E. coli-EIEC Not Detected (NOT DETECT); Vibrio Cholerae Not Detected (NOT DETECT); Vibrio Sp Not Detected (NOT DETECT); Yersinia Enterocolitica Not Detected (NOT DETECT)
[2018-09-27 20:52] LABS: Vancomycin, Trough 19.7 ug/mL (5.0-10.0)
[2018-09-28 04:57] LABS: BASOPHILS ABSOLUTE AUTO 0.02 K/mm3 (0.00-0.23); BASOPHILS PERCENT AUTO 0 % (0-2); EOSINOPHILS ABSOLUTE AUTO 0.02 K/mm3 (0.00-0.68); EOSINOPHILS PERCENT AUTO 0 % (0-6); Hematocrit 27.5 % (37.0-53.0); Hemoglobin 9.2 g/dL (13.5-17.5); IMMATURE GRAN ABSOLUTE AUTO 0.19 K/mm3 (0.00-0.10); IMMATURE GRAN PERCENT AUTO 2 % (0-1); LYMPHOCYTES ABSOLUTE AUTO 0.73 K/mm3 (0.84-5.20); LYMPHOCYTES PERCENT AUTO 6 % (21-46); MONOCYTES ABSOLUTE AUTO 0.35 K/mm3 (0.16-1.47); MONOCYTES PERCENT AUTO 3 % (4-13); Mean Corpuscular HGB 32.5 pg (26.0-34.0); Mean Corpuscular HGB Conc 33.5 g/dL (31.5-36.5); Mean Corpuscular Volume 97 fL (80-100); Mean Platelet Volume 9.8 fL (9.1-12.4); NEUTROPHILS ABSOLUTE AUTO 10.79 K/mm3 (1.96-9.15); NEUTROPHILS PERCENT AUTO 89 % (41-73); Platelet Count 117 K/mm3 (150-400); RDW Coefficient Variation 13.6 % (11.7-14.2); Red Blood Cell Count 2.83 M/mm3 (4.30-5.90)
[2018-09-28 05:18] LABS: Anion Gap 6 mmol/L (6-16); Blood Urea Nitrogen 19 mg/dL (8-24); CO2, Blood 22 mmol/L (21-32); Calcium, Blood 7.4 mg/dL (8.5-10.1); Chloride, Blood 110 mmol/L (98-108); Creatinine, Blood 1.19 mg/dL (0.60-1.20); Glomerular Filtration Rate >60 (60-); Glucose, Blood 111 mg/dL (70-99); Potassium, Blood 4.2 mmol/L (3.5-5.5); Sodium, Blood 138 mmol/L (136-145)
--- NOTE | 2018-09-28 06:25 | NUR ---
SHIFT SUMMARY PATIENT STATES THAT HE IS FEELING MUCH BETTER. UP WITH SBA TO BATHROOM. COMPLAINED OF A HEADACHE AND WAS MEDICATED WITH TYLENOL. PATIENT RESTING IN BED. IV PATENT WITH NO S/S OF INFECTION.
--- NOTE | 2018-09-28 07:16 | NUR ---
ASSUMED CARE OF PT- BEDSIDE REPORT COMPLETED WITH NIGHT HIRAM LEWIS. PT ALERT AND ORIENTED. PER REPORT PT HAD BILATERAL LUNG TRANSPLANT APPROX 2 YEARS AGO. PT ADMITTED WITH LEFT SIDDED PNEUMONIA. PT USING SUCTION INDEPENDENTLY, PT INDEPENDENT IN THE ROOM, CALL LIGHT IN REACH. NO S&S OF DISTRESS NOTED AT THIS TIME WILL CTM/
--- NOTE | 2018-09-28 07:45 | NUR ---
PT HAS HAD SEND OUT LABS SENT TO R/O TB. PT SHOULD BE IN AIRBORN ISOLATION UNTIL R/O RESULTS ARE BACK. PT BEING TRANSFERED TO PCU 7 FOR AIRBORN ISOLATION. PT STILL MEDICAL STATUS AT THIS TIME. CALLED PCU TO GIVE REPORT TO HIRAM REYNOSO, WAITING FOR CALL BACK.
--- NOTE | 2018-09-28 11:58 | NUR ---
PT IV BECAME TOO PAINFUL TO TOLLERATE WHILE VANCO WAS INFUSING, ATTEMPTS TO FLUSH WITH NS CAUSED PAIN. IV FLUSHED WELL PRIOR TO VANCO BEING STARTED NO REDNESS OR S&S OF INFILTRATE, SPOKE TO HEMATOLOGY ONCOLOGY CONSULTANT CICI, WAITING FOR THE HOP PICKER TO PLACE A POWER GLIDE WHEN SHE ARRIVES.
--- NOTE | 2018-09-28 17:37 | NUR ---
TRANSFER NOTE- PT TRANSFERED TO ROOM 332 FOR AIRBORN PRECAUTIONS UNTIL RESULTS COME BACK FOR TB TEST THAT WERE SENT OUT TWO DAYS AGO. PT INFORMED FAMILY OF THE TRANSFER.
--- NOTE | 2018-09-28 17:45 | NUR ---
PT TRANSFERRED TO RM 332 FROM RM 359. ACCOMPANIED BY SPOUSE. RECEIVED REPORT FROM DELORIS GANDHI. CALL MCCARTNEY IN REACH
--- NOTE | 2018-09-28 19:18 | NUR ---
PT RESTING, RECEIVED NEW IV TO RAC AND IV ABX ARE INFUSING. NO C/O PAIN/NAUSEA THIS AFTERNOON AFTER TRANSFER TO ROOM 332. WILL CONTINUE TO MONITOR AND REPORT TO ONCOMING RN
[2018-09-29 05:21] LABS: BASOPHILS ABSOLUTE AUTO 0.01 K/mm3 (0.00-0.23); BASOPHILS PERCENT AUTO 0 % (0-2); EOSINOPHILS ABSOLUTE AUTO 0.03 K/mm3 (0.00-0.68); EOSINOPHILS PERCENT AUTO 0 % (0-6); Hematocrit 27.6 % (37.0-53.0); Hemoglobin 9.2 g/dL (13.5-17.5); IMMATURE GRAN PERCENT AUTO 1 % (0-1); LYMPHOCYTES ABSOLUTE AUTO 0.71 K/mm3 (0.84-5.20); LYMPHOCYTES PERCENT AUTO 7 % (21-46); MONOCYTES ABSOLUTE AUTO 0.51 K/mm3 (0.16-1.47); MONOCYTES PERCENT AUTO 5 % (4-13); Mean Corpuscular HGB 32.4 pg (26.0-34.0); Mean Corpuscular HGB Conc 33.3 g/dL (31.5-36.5); Mean Corpuscular Volume 97 fL (80-100); NEUTROPHILS ABSOLUTE AUTO 8.78 K/mm3 (1.96-9.15); NEUTROPHILS PERCENT AUTO 87 % (41-73); Platelet Count 133 K/mm3 (150-400); RDW Coefficient Variation 13.4 % (11.7-14.2); RDW Standard Deviation 47.7 fL (35.1-46.3); Red Blood Cell Count 2.84 M/mm3 (4.30-5.90); White Blood Cell Count 10.14 K/mm3 (4.00-11.30)
[2018-09-29 05:45] LABS: Anion Gap 5 mmol/L (6-16); Blood Urea Nitrogen 16 mg/dL (8-24); Bun/Creatinine Ratio 15.2 (12.0-20.0); CO2, Blood 23 mmol/L (21-32); Calcium, Blood 8.3 mg/dL (8.5-10.1); Chloride, Blood 110 mmol/L (98-108); Creatinine, Blood 1.05 mg/dL (0.60-1.20); Glomerular Filtration Rate >60 (60-); Glucose, Blood 135 mg/dL (70-99); Potassium, Blood 3.3 mmol/L (3.5-5.5); Sodium, Blood 138 mmol/L (136-145)
--- NOTE | 2018-09-29 05:46 | NUR ---
SHIFT SUMMARY: 68 Y/O MALE RESTED COMFORTABLY ALL SHIFT. PTS IV RIGHT ANTECUBITAL PATENT. TELEMETRY REFLECTS SINUS TACHYCARDIA, DENIES PAIN OR NAUSEA. PT HAPPY AND COOPERATIVE. PTS BED LOW POSITION, CALL LIGHT AT SIDE.
--- NOTE | 2018-09-29 12:32 | NUR ---
Attempted to see pt around 11 am today. Pt was in process of getting new IV site inserted. No visit made yet.
--- NOTE | 2018-09-29 18:11 | NUR ---
Pal Spiritual Care inital visit: Mr. Anderson was alone in room. He is [place], but welcoming of prayer and encouragement. He is active in his [employer] elisha and credits this for getting him through difficult times. He beleives he is getting better and will be able to return home soon. He feels well supported by family. I provided prayer at bedside and genlte child care counselor to good effect. Father Jewel is also making visits and will follow Mr. Anderson throughout this hospitalization. I will remain available.
--- NOTE | 2018-09-29 19:13 | NUR ---
NO ACUTE CHANGES NOTED THIS SHIFT, MEDICATED FOR PAIN AND NAUSEA X1 PER EMAR. PT REQUESTED RESP TX AND PERCUSSION VEST THIS AFTERNOON. WILL CONTINUE TO MONITOR AND REPORT TO ONCOMING RN
--- NOTE | 2018-09-30 04:20 | NUR ---
SHIFT SUMMARY: 68 Y/O MALE RESTED COMFORTABLY ALL SHIFT WHILE STILL IN AIRBORNE PRECAUTIONS PENDING RESULTS OF TB TESTS WHICH HAVE NOT BEEN RECEIVED YET, LUNGS SOUNDS ARE COARSE THROUGHOUT WITH DYSPNEA NOTED WITH MILD EXERTION WHICH RESOLVES WITH REST, DECLINED SHOWER LAST NIGHT (THIS NURSE HUNG UP NEW SHOWER CURTAIN IN ROOM AND OFFERED SHOWER VIA NIGHT NURSING STAFF), DENIES PAIN OR NAUSEA, BED LOW POSITION, CALL LIGHT AT SIDE.
[2018-09-30 04:54] LABS: BASOPHILS ABSOLUTE AUTO 0.01 K/mm3 (0.00-0.23); BASOPHILS PERCENT AUTO 0 % (0-2); EOSINOPHILS ABSOLUTE AUTO 0.05 K/mm3 (0.00-0.68); EOSINOPHILS PERCENT AUTO 1 % (0-6); Hematocrit 26.6 % (37.0-53.0); Hemoglobin 8.9 g/dL (13.5-17.5); IMMATURE GRAN ABSOLUTE AUTO 0.07 K/mm3 (0.00-0.10); IMMATURE GRAN PERCENT AUTO 1 % (0-1); LYMPHOCYTES PERCENT AUTO 17 % (21-46); MONOCYTES ABSOLUTE AUTO 0.72 K/mm3 (0.16-1.47); MONOCYTES PERCENT AUTO 13 % (4-13); Mean Corpuscular HGB 32.2 pg (26.0-34.0); Mean Corpuscular HGB Conc 33.5 g/dL (31.5-36.5); Mean Corpuscular Volume 96 fL (80-100); NEUTROPHILS ABSOLUTE AUTO 3.89 K/mm3 (1.96-9.15); NEUTROPHILS PERCENT AUTO 68 % (41-73); Platelet Count 144 K/mm3 (150-400); RDW Coefficient Variation 13.3 % (11.7-14.2); RDW Standard Deviation 46.8 fL (35.1-46.3); Red Blood Cell Count 2.76 M/mm3 (4.30-5.90); White Blood Cell Count 5.74 K/mm3 (4.00-11.30)
--- NOTE | 2018-09-30 08:30 | NUR ---
PT PLEASANT COOP A/O. DENIES PAIN AT THIS TIME. H/R REG, NO MURMER NOTED. NO TELE. LUNGS CLEAR, DIM LOW RIGHT. ON 2L 02. RESP EASY,UNLABORED. TALKING FULL SENTENCES. BT HYPO. LAST BM TODAY. VIODS PER BATHROOM. INDEPENDANT IN ROOM. BED IN LOW POSITION, CALL LITE IN REAC,H CALLS APPROP
[2018-09-30 18:06] LABS: CMV QUANT DNA PCR (PLASMA) Negative (Negative)
--- NOTE | 2018-09-30 19:19 | NUR ---
PT PLEASANT TODAY. TALKATIVE. DID STOP TO VISIT TWICE TODAY. PT FEELS COOPED UP. HOPING TO BE CLEARED FROM DROPLETT PRECAUTIONS SOON . FAMILY IN TO SEE THIS AFT. ALL ARE PLEASANT. PT STATES FEELING BETTER. SLOW IMPROVEMENTS. NO OTHER CONCERNS AT THIS TIME. BED IN LOW POSITION, CALL LITE IN REACH. CALLS APPROP. INDEPENDANT IN ROOM.
[2018-10-01 05:29] LABS: BASOPHILS ABSOLUTE AUTO 0.03 K/mm3 (0.00-0.23); BASOPHILS PERCENT AUTO 0 % (0-2); EOSINOPHILS PERCENT AUTO 1 % (0-6); Hematocrit 28.4 % (37.0-53.0); Hemoglobin 9.3 g/dL (13.5-17.5); IMMATURE GRAN PERCENT AUTO 1 % (0-1); LYMPHOCYTES ABSOLUTE AUTO 1.41 K/mm3 (0.84-5.20); LYMPHOCYTES PERCENT AUTO 18 % (21-46); MONOCYTES PERCENT AUTO 15 % (4-13); Mean Corpuscular HGB 31.7 pg (26.0-34.0); Mean Corpuscular HGB Conc 32.7 g/dL (31.5-36.5); Mean Corpuscular Volume 97 fL (80-100); Mean Platelet Volume 9.8 fL (9.1-12.4); NEUTROPHILS ABSOLUTE AUTO 5.12 K/mm3 (1.96-9.15); NEUTROPHILS PERCENT AUTO 64 % (41-73); Platelet Count 152 K/mm3 (150-400); RDW Coefficient Variation 13.4 % (11.7-14.2); Red Blood Cell Count 2.93 M/mm3 (4.30-5.90); White Blood Cell Count 7.96 K/mm3 (4.00-11.30)
[2018-10-01 05:53] LABS: Anion Gap 8 mmol/L (6-16); Blood Urea Nitrogen 22 mg/dL (8-24); Bun/Creatinine Ratio 19.8 (12.0-20.0); CO2, Blood 20 mmol/L (21-32); Calcium, Blood 8.3 mg/dL (8.5-10.1); Chloride, Blood 108 mmol/L (98-108); Creatinine, Blood 1.11 mg/dL (0.60-1.20); Glomerular Filtration Rate >60 (60-); Glucose, Blood 114 mg/dL (70-99); Potassium, Blood 4.1 mmol/L (3.5-5.5); Sodium, Blood 136 mmol/L (136-145)
--- NOTE | 2018-10-01 06:19 | NUR ---
SHIFT SUMMARY PT PLEASANT AND COOPERATIVE. FEELING ISOLATED IN THE AIRBORNE PRECAUTIONS AND STRUGGLING SLIGHTLY WITH IT. PT HOPEFUL TO BE CLEARED SOON SO HE CAN WANDER AROUND. LUNG SOUNDS DIMINISHED AT START OF SHIFT, AND MORE COARSE TOWARDS THE END. PT DOES GET SOB AT TIMES, REQUESTS BREATHING TX'S NEEDED. PT ONLY A SMALL AMOUNT OF PAIN WHEN DEEP BREATHING BUT DENIES ANY NEED FOR PAIN MEDICATION. PT DID COMPLAIN OF GI UPSET TONIGHT. NANETTE HEAD GROWER NOTIFIED. NEW ORDER FOR MAALOX. MAALOX GIVEN, VERY EFFECTIVE. PT HAD NO FURTHER COMPLAINTS. VITAL SIGNS STABLE. NO OTHER ACUTE CHANGES THIS SHIFT. WILL CONTINUE TO MONITOR.
--- NOTE | 2018-10-01 17:21 | NUR ---
PATIENT A/OX4, UP INDPENDENTLY IN ROOM. DROPLET PRECAUTIONS FOR R/O TB. 2LO2 TO MAINTAIN SATS, LUNGS DIMINSHED WITH WHEEZES THROUGHOUT. TOLERATING REGULAR DIET. REPORTS INTERMITTENT NAUSEA THAT IS CHRONIC REFUSED ANY MEDICATION TO TREAT. TRAMADOL GIVEN X1 THIS SHIFT FOR LUNG PAIN AND HEADACHE WITH STATED RELIEF. 20G IV TO R AC WNL AND SL BETWEEN ABX. PATIENT IS CALM AND COOPERATIVE WITH CARE.
--- NOTE | 2018-10-02 04:26 | NUR ---
SHIFT SUMMARY PT SLEPT WELL THROUGH MUCH OF THE NIGHT. WAKING UP ONCE WITH AN UPSET STOMACH, MEDICATED WITH MAALOX WITH GOOD RELIEF, AND ONCE FEELING SOB AND REQUESTING A BREATHING TREATMENT. PT CONTINUES TO BE SOB WITH VERY LITTLE EXERTION. LUNG SOUNDS DIMINISHED WITH SOME WHEEZING. PT AMBULATING INDEPENDENTLY. VOIDING WELL. NO COMPLAINTS OF PAIN. VITAL SIGNS STABLE. WILL CONTINUE TO MONITOR.
[2018-10-02 08:08] LABS: CMV QUANT DNA PCR (PLASMA) Negative (Negative)
--- NOTE | 2018-10-02 10:14 | NUR ---
INFECTION PREVENTION DEPARTMENT REQUESTS I ASK DOCTOR ABOUT RULE OUT TB RESULTS FROM OFF-SITE LAB WHEN HE ROUNDS ON PT.
--- NOTE | 2018-10-02 18:16 | NUR ---
SHIFT SUMMARY PT IN AIRBORNE/CONTACT TO RULE OUT TB. AWAITING LAB RESULTS FOR THAT TEST. PROVIDED ULTRAM ONE TIME DURING SHIFT TO GOOD EFFECT. ADMINISTERED CHOLESISTERINE ONE TIME DUE TO DIARRHEA. INFECTION PREVENTION WANTS TO BE NOTIFIED OF TB TEST RESULTS.
--- NOTE | 2018-10-03 06:44 | NUR ---
remains in isolation. a+o, requested mag + 3 times states that it is the only thing that works and that it works well, saline locked, room air, states slept well between bouts of nausea, no major medical changes noted during shift, will continue to monitor and treat until provide returning day shift with complete bsr
--- NOTE | 2018-10-03 15:51 | NUR ---
SHIFT SUMMARY PT INFORMS ME THAT THE DR STATED TO HIM THAT HIS TB TEST WAS NEGATIVE. I HAVE LEFT A MESSAGE WITH INFECTION PREVENTION RE: HIS STATEMENT. PT STATES HE STILL HAS PAIN IN HIS CHEST AND GI UPSET. MAALOX GIVEN. CHOLESISTERINE GIVEN FOR DIARRHEA. THESE SEEM EFFECTIVE. NO NEW CHANGES THROUGHOUT SHIFT.
[2018-10-04 06:07] LABS: Hematocrit 28.9 % (37.0-53.0); Hemoglobin 9.3 g/dL (13.5-17.5); Mean Corpuscular HGB 32.1 pg (26.0-34.0); Mean Corpuscular HGB Conc 32.2 g/dL (31.5-36.5); Mean Platelet Volume 9.5 fL (9.1-12.4); Platelet Count 328 K/mm3 (150-400); RDW Coefficient Variation 13.6 % (11.7-14.2); RDW Standard Deviation 49.3 fL (35.1-46.3); White Blood Cell Count 6.69 K/mm3 (4.00-11.30)
[2018-10-04 06:21] LABS: Mean Corpuscular Volume 100 fL (80-100)
[2018-10-04 06:34] LABS: Anion Gap 9 mmol/L (6-16); BASOPHILS ABSOLUTE MAN 0.06 K/mm3 (0.00-0.23); BASOPHILS PERCENT MAN 1 % (0-2); Blood Urea Nitrogen 25 mg/dL (8-24); Bun/Creatinine Ratio 21.9 (12.0-20.0); CO2, Blood 21 mmol/L (21-32); Chloride, Blood 108 mmol/L (98-108); Creatinine, Blood 1.14 mg/dL (0.60-1.20); EOSINOPHILS ABSOLUTE MAN 0.13 K/mm3 (0.00-0.68); EOSINOPHILS PERCENT MAN 2 % (0-6); Glomerular Filtration Rate >60 (60-); Glucose, Blood 118 mg/dL (70-99); LYMPHOCYTES PERCENT MAN 18 % (21-46); METAMYELOCYTE PERCENT MAN 3 % (0-0); MONOCYTES PERCENT MAN 6 % (4-13); MYELOCYTE ABSOLUTE MAN 0.06 K/mm3 (0.00-0.00); MYELOCYTE PERCENT MAN 1 % (0-0); NEUTROPHILS ABSOLUTE MAN 4.61 K/mm3 (1.96-9.15); Potassium, Blood 4.5 mmol/L (3.5-5.5); SEG NEUTROPHILS PERCENT MAN 69 % (41-73); Sodium, Blood 138 mmol/L (136-145); TOTAL CELLS COUNTED 100
--- NOTE | 2018-10-04 07:20 | NUR ---
requested iv be removed but was able to accomadate with changing covering and changing dressing, saline locked, call light in reach, room air, bsr given to returning day nurse
--- NOTE | 2018-10-04 17:36 | NUR ---
SHIFT SUMMARY I HAVE NOTICED PERIODS OF ANXIETY RE:CARE PROVIDED & DISCHARGE THROUGHOUT SHIFT. IT IS PROBLEMATIC THAT WE CANNOT RECEIVE ALL OF THE TB RESULTS FOR POSSIBLY WEEKS. THE FAMILY AND PT ARE CONCERNED ABOUT THIS. HE FEELS UNCERTAIN WETHER HE SHOULD BE DISCHARGED. HOSPITALIST HAS REQUESTED DR. SUE CONSULT ON THIS TO REASSURE ALL PARTIES INVOLVED. I HAVE GIVEN TRAMADOL THIS SHIFT FOR PAIN. HE HAS NOT YET REQUESTED MAALOX OR CHOLESISTERINE THIS SHIFT. NO OTHER CHANGES.
--- NOTE | 2018-10-05 05:08 | NUR ---
SHIFT SUMMARY A/O, ABLE TO MAKE NEEDS KNOWN. COOPERATIVE WITH CARE. CALLS AND ANSWERS QUESTIONS APPROPRIATELY. NO C/O PAIN/DISCOMFORT. UP INDEPENDENTLY IN ROOM. CLEARED FROM TB/AIRBORNE PRECAUTIONS. NO ACUTE CHANGES OVERNIGHT. APPEARED TO REST MUCH OF SHIFT. BED IN LOWEST POSITION. CALL LIGHT AND BELONGINGS WITHIN REACH. WCTM. REPORT TO ONCOMING RN.
[2018-10-05] MEDS ORDERED: Magnesium-Alum360 ML PO (11:05)
[2018-10-05] MEDS ORDERED: LACT PO (11:05)
[2018-10-05] MEDS ORDERED: POTA10T PO (11:06)
[2018-10-05] MEDS ORDERED: PREVALITE PAC4 G/PKT PO (11:07)
[2018-10-05] MEDS ORDERED: CEFP200 PO (11:08)
--- NOTE | 2018-10-05 11:58 | NUR ---
DISCHARGE PT WAS EXCITED FOR D/C. UNDERSTANDS NEW MEDS. MEDS FAXED TO [facility]. ESCORTED VIA W/C OUT TO CAR WITH SPOUSE.
== END 2018-10-05 11:50 | disposition home or self-care (01) | DRG 871 ==
LOC: ER 09:14 → MEDS 11:01
PROVIDERS: Emergency Medicine; Internal Medicine; Internal Medicine Pulmonary Disease; Pharmacist; ADMIT Internal Medicine
PROC: 5A09457 Assistance with Respiratory Ventilation, 24-96 Consecutive Hours, Continuous Positive Airway Pressure (ICD-10-PCS; principal; 2018-09-26)
DX: A41.9 Sepsis, unspecified organism (principal); J18.1 Lobar pneumonia, unspecified organism; J96.01 Acute respiratory failure with hypoxia; J15.5 Pneumonia due to Escherichia coli; Z94.2 Lung transplant status; B25.9 Cytomegaloviral disease, unspecified; N17.9 Acute kidney failure, unspecified; R04.2 Hemoptysis; E87.6 Hypokalemia; G47.33 Obstructive sleep apnea (adult) (pediatric); Z99.81 Dependence on supplemental oxygen; E03.9 Hypothyroidism, unspecified; F32.9 Major depressive disorder, single episode, unspecified; N40.0 Benign prostatic hyperplasia without lower urinary tract symptoms; G47.00 Insomnia, unspecified; K21.9 Gastro-esophageal reflux disease without esophagitis; M81.0 Age-related osteoporosis without current pathological fracture; J84.112 Idiopathic pulmonary fibrosis; Z85.46 Personal history of malignant neoplasm of prostate
CPT/HCPCS: 0097U; 0099U; 36415; 36600; 71045; 71046; 71250; 80048; 80053; 80195; 80197; 80202; 82803; 83605; 84145; 84484; 85025; 86644; 86645; 87015; 87040; 87070; 87077; 87102; 87106; 87116; 87186; 87205; 87206; 87252; 87254; 87497; 93005; 93010; 94640; 94667; 94668; 94760; 96365; 96366; 96367; 99285-25; A9270; J0696; J1650; J1956; J2185; J2405; J2543; J3010; J3370; J7030; J7050; J7507; J7512; J7520

== ENCOUNTER 2018-12-05 19:28 | Emergency (ER) | payer MEDICARE ==
[~2018-12-05] VITALS: Ht 182.9 cm; Wt 81.7 kg
[~2018-12-05 19:28] MED LIST changes: +LACT PO; +Magnesium-Alum360 ML PO; +POTA10T PO; +PREVALITE PAC4 G/PKT PO
[2018-12-05 20:01] LABS: BASOPHILS ABSOLUTE AUTO 0.04 K/mm3 (0.00-0.23); BASOPHILS PERCENT AUTO 1 % (0-2); EOSINOPHILS ABSOLUTE AUTO 0.04 K/mm3 (0.00-0.68); EOSINOPHILS PERCENT AUTO 1 % (0-6); Hematocrit 33.5 % (37.0-53.0); Hemoglobin 11.1 g/dL (13.5-17.5); IMMATURE GRAN ABSOLUTE AUTO 0.09 K/mm3 (0.00-0.10); IMMATURE GRAN PERCENT AUTO 1 % (0-1); LYMPHOCYTES ABSOLUTE AUTO 1.08 K/mm3 (0.84-5.20); LYMPHOCYTES PERCENT AUTO 17 % (21-46); MONOCYTES ABSOLUTE AUTO 0.52 K/mm3 (0.16-1.47); MONOCYTES PERCENT AUTO 8 % (4-13); Mean Corpuscular HGB 31.1 pg (26.0-34.0); Mean Corpuscular HGB Conc 33.1 g/dL (31.5-36.5); Mean Corpuscular Volume 94 fL (80-100); Mean Platelet Volume 9.1 fL (9.1-12.4); NEUTROPHILS ABSOLUTE AUTO 4.48 K/mm3 (1.96-9.15); NEUTROPHILS PERCENT AUTO 72 % (41-73); Platelet Count 174 K/mm3 (150-400); RDW Coefficient Variation 12.3 % (11.7-14.2); RDW Standard Deviation 42.5 fL (35.1-46.3); Red Blood Cell Count 3.57 M/mm3 (4.30-5.90); White Blood Cell Count 6.25 K/mm3 (4.00-11.30)
[2018-12-05 20:07] LABS: Albumin, Blood 3.6 g/dL (3.4-5.0); Albumin/Globulin Ratio 1.1 (0.8-1.8); Bilirubin, Total 0.2 mg/dL (0.1-1.0); Bun/Creatinine Ratio 17.4 (12.0-20.0); Calcium, Blood 8.5 mg/dL (8.5-10.1); Creatinine, Blood 1.38 mg/dL (0.60-1.20); Globulin, Blood 3.3 g/dL (2.2-4.0); Potassium, Blood 4.4 mmol/L (3.5-5.5); Total Protein, Blood 6.9 g/dL (6.4-8.2)
== END 2018-12-05 21:54 | disposition home or self-care (01) ==
LOC: ER 19:28
PROVIDERS: Emergency Medicine
DX: R07.9 Chest pain, unspecified (principal); Z79.899 Other long term (current) drug therapy; Z79.82 Long term (current) use of aspirin; K21.9 Gastro-esophageal reflux disease without esophagitis; E03.9 Hypothyroidism, unspecified; F32.9 Major depressive disorder, single episode, unspecified; Z87.891 Personal history of nicotine dependence
CPT/HCPCS: 71046; 80053; 83690; 84484; 85025; 93005; 93010; 96374; 99284-25; J2405

== ENCOUNTER → 2019-02-23 | Outpatient (CLI) | payer MEDICARE | LOC: LAB SHORT 16:56 → OLS 16:56 → LAB FUT 11-11 12:45 | DX: J18.9 Pneumonia, unspecified organism (principal) | CPT/HCPCS: 87070; 87077; 87186; 87205 ==

== ENCOUNTER 2019-07-29 00:05 | Day surgery (SDC) | payer MEDICARE, OTHER ==
[~2019-07-29 00:05] MED LIST changes: -CHOL10002 PO; -LO-DOSE ASPIRIN81 MG PO; +VITAMIN D-32000 UNIT PO
[2019-07-29] MEDS ORDERED: ALBU3IS INH (11:11)
[2019-07-29] MEDS ORDERED: METHYLPREDNIS1000 M1 IV (11:15)
== END 2019-07-29 10:59 | disposition home or self-care (01) ==
LOC: ATC 00:05
DX: T86.810 Lung transplant rejection (principal); K21.9 Gastro-esophageal reflux disease without esophagitis; G47.33 Obstructive sleep apnea (adult) (pediatric); M19.90 Unspecified osteoarthritis, unspecified site; N40.0 Benign prostatic hyperplasia without lower urinary tract symptoms; E03.9 Hypothyroidism, unspecified; M72.2 Plantar fascial fibromatosis; Z79.899 Other long term (current) drug therapy
CPT/HCPCS: 96365; J2930

== ENCOUNTER → 2019-08-13 | Outpatient (CLI) | payer MEDICARE ==
[~2019-08-13] MED LIST changes: +METHYLPREDNIS1000 M1 IV
== END | disposition home or self-care (01) ==
LOC: LAB 16:50 → LAB SHORT 16:50 → LAB FUT 08-12 15:25 → EDSTATUS 08-12 15:25
DX: E03.9 Hypothyroidism, unspecified (principal)
CPT/HCPCS: 84443

== ENCOUNTER → 2020-01-07 | Outpatient (CLI) | payer MEDICARE ==
[~2020-01-07] MED LIST changes: +MOTION RELIEF25 MG PO
== END | disposition home or self-care (01) ==
LOC: LAB 12:53 → LAB SHORT 12:53
DX: J18.9 Pneumonia, unspecified organism (principal)
CPT/HCPCS: 87070; 87205

== ENCOUNTER 2020-01-23 22:33 | Emergency (ER) | payer MEDICARE ==
[~2020-01-23] VITALS: Ht 167.6 cm; Wt 81.7 kg
[~2020-01-23 22:33] MED LIST changes: -MOTION RELIEF25 MG PO
[2020-01-23 23:26] LABS: BASOPHILS ABSOLUTE AUTO 0.03 K/mm3 (0.00-0.23); BASOPHILS PERCENT AUTO 1 % (0-2); EOSINOPHILS ABSOLUTE AUTO 0.04 K/mm3 (0.00-0.68); EOSINOPHILS PERCENT AUTO 1 % (0-6); Hematocrit 23.6 % (37.0-53.0); Hemoglobin 7.6 g/dL (13.5-17.5); IMMATURE GRAN ABSOLUTE AUTO 0.05 K/mm3 (0.00-0.10); IMMATURE GRAN PERCENT AUTO 1 % (0-1); LYMPHOCYTES ABSOLUTE AUTO 0.74 K/mm3 (0.84-5.20); LYMPHOCYTES PERCENT AUTO 15 % (21-46); MONOCYTES ABSOLUTE AUTO 0.42 K/mm3 (0.16-1.47); MONOCYTES PERCENT AUTO 8 % (4-13); Mean Corpuscular HGB 29.3 pg (26.0-34.0); Mean Corpuscular HGB Conc 32.2 g/dL (31.5-36.5); Mean Corpuscular Volume 91 fL (80-100); Mean Platelet Volume 9.5 fL (9.1-12.4); NEUTROPHILS ABSOLUTE AUTO 3.77 K/mm3 (1.96-9.15); NEUTROPHILS PERCENT AUTO 75 % (41-73); Platelet Count 135 K/mm3 (150-400); RDW Coefficient Variation 13.1 % (11.7-14.2); RDW Standard Deviation 43.1 fL (35.1-46.3); Red Blood Cell Count 2.59 M/mm3 (4.30-5.90); White Blood Cell Count 5.05 K/mm3 (4.00-11.30)
[2020-01-23 23:43] LABS: International Normalized Ratio 1.17; Prothrombin Time Results 12.4 Sec (9.7-11.5)
[2020-01-23 23:48] LABS: Alanine Aminotransfer (ALT/SGP 8 U/L (12-78); Albumin, Blood 2.4 g/dL (3.4-5.0); Alk Phos 50 U/L (50-136); Anion Gap 5 mmol/L (6-16); Aspartate Aminotrans (AST/SGOT 10 U/L (12-37); Bilirubin, Total 0.2 mg/dL (0.1-1.0); Blood Urea Nitrogen 22 mg/dL (8-24); Bun/Creatinine Ratio 15.4 (12.0-20.0); CO2, Blood 20 mmol/L (21-32); Calcium, Blood 6.5 mg/dL (8.5-10.1); Chloride, Blood 109 mmol/L (98-108); Creatinine, Blood 1.43 mg/dL (0.60-1.20); Globulin, Blood 2.5 g/dL (2.2-4.0); Glomerular Filtration Rate 52 (60-); Glucose, Blood 117 mg/dL (70-99); Potassium, Blood 3.8 mmol/L (3.5-5.5); Sodium, Blood 134 mmol/L (136-145); Total Protein, Blood 4.9 g/dL (6.4-8.2); Troponin I <0.015 ng/mL (0.000-0.040)
[2020-01-24] MEDS ORDERED: MOTION RELIEF25 MG PO (01:05)
== END 2020-01-24 01:15 | disposition home or self-care (01) ==
LOC: ER 22:33
PROVIDERS: Emergency Medicine
DX: H81.10 Benign paroxysmal vertigo, unspecified ear (principal); Z79.899 Other long term (current) drug therapy; Z79.82 Long term (current) use of aspirin
CPT/HCPCS: 70450; 70496; 70498; 71045; 80053; 84484; 85025; 85610; 85730; 93005; 93010; 99285-25; Q9967

== ENCOUNTER 2020-02-02 02:55 | Day surgery (SDC) | payer MEDICARE ==
[~2020-02-02 02:55] MED LIST changes: +BACTRIM 400-801 EACH PO; -Bactrim 400-801 EACH PO; +MOTION RELIEF25 MG PO
--- NOTE | 2020-02-02 14:29 | NUR ---
PT WEARS 3 LITERS/MIN OF O2 PER NC CONTINUOUSLY
--- NOTE | 2020-02-02 17:37 | NUR ---
SCATTERED EXP WHEEZES SCATTERED T/O BOTH LUNG ORTIZ. EXP RHONCI NOTED TO LLL. PT HAS VOIDED 4 TIMES FOR MORE THAN 1 LITER OUT SINCE ADMINISTRATION OF LASIX. PT REPORTS "I FEEL BETTER NOW THAN I DID WHEN I CAME IN." 96% ON 3 LITERS/MIN O2 PER NC
== END 2020-02-02 18:00 | disposition home or self-care (01) ==
LOC: ATC 02:55
PROC: 30233N1 Transfusion of Nonautologous Red Blood Cells into Peripheral Vein, Percutaneous Approach (ICD-10-PCS; principal; 2020-02-02)
DX: I12.9 Hypertensive chronic kidney disease with stage 1 through stage 4 chronic kidney disease, or unspecified chronic kidney disease (principal); N18.30 Chronic kidney disease, stage 3 unspecified; D63.1 Anemia in chronic kidney disease; E86.9 Volume depletion, unspecified; N25.81 Secondary hyperparathyroidism of renal origin; E55.9 Vitamin D deficiency, unspecified; M19.90 Unspecified osteoarthritis, unspecified site; K21.9 Gastro-esophageal reflux disease without esophagitis; G47.33 Obstructive sleep apnea (adult) (pediatric); F32.9 Major depressive disorder, single episode, unspecified; E03.9 Hypothyroidism, unspecified; J44.9 Chronic obstructive pulmonary disease, unspecified; E66.9 Obesity, unspecified; Z68.35 Body mass index [BMI] 35.0-35.9, adult; Z99.2 Dependence on renal dialysis; Z81.0 Family history of intellectual disabilities; Z79.899 Other long term (current) drug therapy; Z79.82 Long term (current) use of aspirin; Z79.52 Long term (current) use of systemic steroids; Z85.46 Personal history of malignant neoplasm of prostate; Z87.891 Personal history of nicotine dependence; Z51.5 Encounter for palliative care
CPT/HCPCS: 36430; 86850; 86900; 86901; 86923; 96374; J1940; J7050; P9016

== ENCOUNTER → 2020-02-14 | Outpatient (CLI) | payer MEDICARE | END | disposition home or self-care (01) | LOC: LAB UCHC 09:45 | DX: J18.9 Pneumonia, unspecified organism (principal) | CPT/HCPCS: 87070; 87077; 87186; 87205 ==

== ENCOUNTER → 2021-01-02 | Outpatient (CLI) | payer MEDICARE ==
[~2021-01-02] MED LIST changes: +AMOCLA875 PO
== END | disposition home or self-care (01) ==
LOC: LAB SHORT 10:00 → LAB 10:00
DX: R05.9 Cough, unspecified (principal)
CPT/HCPCS: 87070; 87205

== ENCOUNTER 2021-01-03 11:10 | Emergency (ER) | payer MEDICARE ==
[~2021-01-03] VITALS: Ht 167.6 cm; Wt 86.2 kg
[~2021-01-03 11:10] MED LIST changes: -AMOCLA875 PO
[2021-01-03 12:29] LABS: BASOPHILS ABSOLUTE AUTO 0.04 K/mm3 (0.00-0.23); BASOPHILS PERCENT AUTO 0 % (0-2); EOSINOPHILS ABSOLUTE AUTO 0.08 K/mm3 (0.00-0.68); EOSINOPHILS PERCENT AUTO 1 % (0-6); Hematocrit 30.7 % (37.0-53.0); Hemoglobin 9.9 g/dL (13.5-17.5); IMMATURE GRAN ABSOLUTE AUTO 0.07 K/mm3 (0.00-0.10); IMMATURE GRAN PERCENT AUTO 1 % (0-1); LYMPHOCYTES ABSOLUTE AUTO 0.73 K/mm3 (0.84-5.20); LYMPHOCYTES PERCENT AUTO 7 % (21-46); MONOCYTES ABSOLUTE AUTO 0.62 K/mm3 (0.16-1.47); MONOCYTES PERCENT AUTO 6 % (4-13); Mean Corpuscular HGB 30.8 pg (26.0-34.0); Mean Corpuscular HGB Conc 32.2 g/dL (31.5-36.5); Mean Corpuscular Volume 96 fL (80-100); Mean Platelet Volume 9.8 fL (9.1-12.4); NEUTROPHILS PERCENT AUTO 86 % (41-73); Platelet Count 135 K/mm3 (150-400); RDW Coefficient Variation 12.6 % (11.7-14.2); RDW Standard Deviation 43.9 fL (35.1-46.3); Red Blood Cell Count 3.21 M/mm3 (4.30-5.90); White Blood Cell Count 11.04 K/mm3 (4.00-11.30)
[2021-01-03 12:43] LABS: SARS-Cov-2 (COVID-19) PCR, MMC NEGATIVE (NEGATIVE)
[2021-01-03 12:45] LABS: Albumin, Blood 2.9 g/dL (3.4-5.0); Albumin/Globulin Ratio 0.9 (0.8-1.8); Bilirubin, Total 0.3 mg/dL (0.1-1.0); Bun/Creatinine Ratio 19.2 (12.0-20.0); Calcium, Blood 8.7 mg/dL (8.5-10.1); Creatinine, Blood 1.77 mg/dL (0.60-1.20); Globulin, Blood 3.3 g/dL (2.2-4.0); Potassium, Blood 4.7 mmol/L (3.5-5.5); Total Protein, Blood 6.2 g/dL (6.4-8.2)
[2021-01-03] MEDS ORDERED: DOXY100 PO (14:15)
[2021-01-03] MEDS ORDERED: AMOCLA875 PO (14:15)
== END 2021-01-03 14:27 | disposition home or self-care (01) ==
LOC: ER 11:10
PROVIDERS: Emergency Medicine
DX: J06.9 Acute upper respiratory infection, unspecified (principal); D64.9 Anemia, unspecified; D69.6 Thrombocytopenia, unspecified; Z20.822 Contact with and (suspected) exposure to COVID-19; K21.9 Gastro-esophageal reflux disease without esophagitis; M19.90 Unspecified osteoarthritis, unspecified site; E03.9 Hypothyroidism, unspecified; G47.33 Obstructive sleep apnea (adult) (pediatric); Z94.2 Lung transplant status; Z79.2 Long term (current) use of antibiotics; Z79.899 Other long term (current) drug therapy; Z79.82 Long term (current) use of aspirin; Z79.52 Long term (current) use of systemic steroids
CPT/HCPCS: 36415; 71045; 80053; 83605; 85025; 99284-25; U0004

== ENCOUNTER → 2021-04-16 | Outpatient (CLI) | payer MEDICARE ==
[~2021-04-16] MED LIST changes: +AMOCLA875 PO
[2021-04-16 10:59] LABS: Appearance, Urine Clear (Clear); Bilirubin, Urine Neg (Neg); Blood, Urine 4+ (Neg); Color, Urine Yellow (P-Yellow); Glucose Qualitative, Urine Neg (Neg); Ketones, Urine Neg (Neg); Leukocyte Esterase, Urine Neg (Neg); Nitrite, Urine Neg (Neg); Protein, Urine 3+ (Neg); Specific Gravity, Urine 1.015 (1.003-1.022); Urobilinogen, Urine NORM (Normal)
[2021-04-16 11:57] LABS: White Blood Cells, Urine 0-2 /hpf (0-5)
[2021-04-16 11:58] LABS: Bacteria Rare /hpf; Squamous Epithelial Cells Not Seen /hpf (Few)
== END | disposition home or self-care (01) ==
LOC: LAB SHORT 10:12
PROVIDERS: Radiology Therapeutic Radiology
DX: C61 Malignant neoplasm of prostate (principal); R30.0 Dysuria
CPT/HCPCS: 81001

== ENCOUNTER 2021-05-13 19:00 | Emergency (ER) | payer MEDICARE ==
[~2021-05-13] VITALS: Ht 167.6 cm; Wt 86.2 kg
[2021-05-13 19:34] LABS: BASOPHILS ABSOLUTE AUTO 0.03 K/mm3 (0.00-0.23); BASOPHILS PERCENT AUTO 1 % (0-2); EOSINOPHILS ABSOLUTE AUTO 0.03 K/mm3 (0.00-0.68); EOSINOPHILS PERCENT AUTO 1 % (0-6); IMMATURE GRAN ABSOLUTE AUTO 0.05 K/mm3 (0.00-0.10); IMMATURE GRAN PERCENT AUTO 1 % (0-1); LYMPHOCYTES ABSOLUTE AUTO 0.52 K/mm3 (0.84-5.20); LYMPHOCYTES PERCENT AUTO 9 % (21-46); MONOCYTES ABSOLUTE AUTO 0.49 K/mm3 (0.16-1.47); MONOCYTES PERCENT AUTO 8 % (4-13); Mean Corpuscular HGB 30.8 pg (26.0-34.0); Mean Corpuscular Volume 96 fL (80-100); Mean Platelet Volume 9.7 fL (9.1-12.4); NEUTROPHILS ABSOLUTE AUTO 4.81 K/mm3 (1.96-9.15); NEUTROPHILS PERCENT AUTO 81 % (41-73); Platelet Count 164 K/mm3 (150-400); RDW Coefficient Variation 14.4 % (11.7-14.2); RDW Standard Deviation 49.9 fL (35.1-46.3); White Blood Cell Count 5.93 K/mm3 (4.00-11.30)
[2021-05-13 19:55] LABS: Albumin, Blood 3.1 g/dL (3.4-5.0); Albumin/Globulin Ratio 1.2 (0.8-1.8); Bilirubin, Total 0.3 mg/dL (0.1-1.0); Bun/Creatinine Ratio 12.9 (12.0-20.0); Calcium, Blood 8.1 mg/dL (8.5-10.1); Creatinine, Blood 2.09 mg/dL (0.60-1.20); Globulin, Blood 2.5 g/dL (2.2-4.0); Potassium, Blood 4.9 mmol/L (3.5-5.5); Total Protein, Blood 5.6 g/dL (6.4-8.2)
[2021-05-13 21:27] LABS: Influenza A, PCR NEGATIVE (NEGATIVE); Influenza B, PCR NEGATIVE (NEGATIVE); Resp Syncytial Virus, PCR NEGATIVE (NEGATIVE); SARS-Cov-2 (COVID-19) PCR, MMC NEGATIVE (NEGATIVE)
[2021-05-13] MEDS ORDERED: PRED20 PO (22:13)
[2021-05-13] MEDS ORDERED: IPRAT-ALBUT 0.5-3 ML INH (22:13)
[2021-05-13] MEDS ORDERED: LEVO750 PO (22:13)
[2021-05-13 22:16] LABS: Bicarbonate Venous 20.2 mmol/L (24.0-30.0); PCO2 Venous 39.7 mmHg (38-42); PO2 Venous 157 mmHg (38-42); pH Blood Venous 7.32 (7.34-7.37)
[2021-05-13 22:17] LABS: Base Excess Venous -5.5 mmol/L
== END 2021-05-13 22:55 | disposition home or self-care (01) ==
LOC: ER 19:00
PROVIDERS: Student in an Organized Health Care Education/Training Program
DX: J96.11 Chronic respiratory failure with hypoxia (principal); J44.1 Chronic obstructive pulmonary disease with (acute) exacerbation; Z94.2 Lung transplant status; Z20.822 Contact with and (suspected) exposure to COVID-19; K21.9 Gastro-esophageal reflux disease without esophagitis; E03.9 Hypothyroidism, unspecified; Z86.718 Personal history of other venous thrombosis and embolism; Z79.52 Long term (current) use of systemic steroids; Z79.899 Other long term (current) drug therapy; Z79.82 Long term (current) use of aspirin
CPT/HCPCS: 0241U; 71260; 80053; 80197; 82803; 83880; 84484; 85025; 93005; 93010; 94640; 96374; 96375; 99285-25; J0696; J2930; J7030; Q9967

== ENCOUNTER 2021-05-15 11:40 | Inpatient (IN) | payer MEDICARE ==
[~2021-05-15] VITALS: Ht 167.6 cm; Wt 87.7 kg
[~2021-05-15 11:40] MED LIST changes: +Diflucan100 MG PO; -FLUC200 PO; +IPRAT-ALBUT 0.5-3 ML INH; +LEVO750 PO
[2021-05-15 12:35] LABS: BASOPHILS ABSOLUTE AUTO 0.01 K/mm3 (0.00-0.23); BASOPHILS PERCENT AUTO 0 % (0-2); EOSINOPHILS PERCENT AUTO 0 % (0-6); Hematocrit 24.5 % (37.0-53.0); Hemoglobin 7.9 g/dL (13.5-17.5); IMMATURE GRAN ABSOLUTE AUTO 0.11 K/mm3 (0.00-0.10); IMMATURE GRAN PERCENT AUTO 1 % (0-1); LYMPHOCYTES ABSOLUTE AUTO 0.19 K/mm3 (0.84-5.20); LYMPHOCYTES PERCENT AUTO 1 % (21-46); MONOCYTES ABSOLUTE AUTO 0.58 K/mm3 (0.16-1.47); MONOCYTES PERCENT AUTO 4 % (4-13); Mean Corpuscular HGB 30.7 pg (26.0-34.0); Mean Corpuscular HGB Conc 32.2 g/dL (31.5-36.5); Mean Corpuscular Volume 95 fL (80-100); NEUTROPHILS ABSOLUTE AUTO 12.28 K/mm3 (1.96-9.15); NEUTROPHILS PERCENT AUTO 93 % (41-73); Platelet Count 186 K/mm3 (150-400); RDW Coefficient Variation 14.6 % (11.7-14.2); RDW Standard Deviation 50.5 fL (35.1-46.3); Red Blood Cell Count 2.57 M/mm3 (4.30-5.90); White Blood Cell Count 13.17 K/mm3 (4.00-11.30)
[2021-05-15 12:45] LABS: Albumin, Blood 3.1 g/dL (3.4-5.0); Albumin/Globulin Ratio 1.1 (0.8-1.8); Bilirubin, Total 0.3 mg/dL (0.1-1.0); Bun/Creatinine Ratio 20.8 (12.0-20.0); Calcium, Blood 7.9 mg/dL (8.5-10.1); Creatinine, Blood 2.31 mg/dL (0.60-1.20); Globulin, Blood 2.9 g/dL (2.2-4.0); Potassium, Blood 4.7 mmol/L (3.5-5.5)
--- NOTE | 2021-05-15 16:50 | NUR ---
PT ARRIVED TO THE MEDICAL FLOOR FROM THE ER A/OX4 VIA WHEELCHAIR, PLEASANT AND COOPERATIVE PT IS SOB WITH MINIMAL ACTIVITY AND AT REST CURRENTLY ON 3L/MIN O2 VIA NC. PT ORIENTED TO THE ROOM LAYOUT AND CALL SYSTEM. CALL LIGHT IN REACH. PT DENIES ANY PAIN AT THIS TIME
--- NOTE | 2021-05-15 18:57 | NUR ---
PT IS A/OX4, PLEASANT AND COOPERATIVE. THE PT IS SOB WITH MINIMAL ACTIVITY ON 3L/MIN O2 VIA NC. THE PT REPORTED FEELING ANXIUOS . THE PT WAS MEDICATED FOR ANXITY THIS EVENING. PT DENIED ANY PAIN. THE PTS WAS IN TO VISIT. CALL LIGHT IN REACH. WILL CONTINUE TO MONITOR AND ASSESS FOR CHANGES
[2021-05-16 04:50] LABS: Hematocrit 23.2 % (37.0-53.0); Hemoglobin 7.5 g/dL (13.5-17.5); Mean Corpuscular HGB 31.1 pg (26.0-34.0); Mean Corpuscular HGB Conc 32.3 g/dL (31.5-36.5); Mean Corpuscular Volume 96 fL (80-100); Mean Platelet Volume 9.9 fL (9.1-12.4); Platelet Count 163 K/mm3 (150-400); RDW Coefficient Variation 14.6 % (11.7-14.2); RDW Standard Deviation 51.1 fL (35.1-46.3); Red Blood Cell Count 2.41 M/mm3 (4.30-5.90); White Blood Cell Count 7.66 K/mm3 (4.00-11.30)
[2021-05-16 05:03] LABS: Bun/Creatinine Ratio 21.3 (12.0-20.0); Calcium, Blood 7.9 mg/dL (8.5-10.1); Creatinine, Blood 2.3 mg/dL (0.60-1.20); Potassium, Blood 4.6 mmol/L (3.5-5.5)
--- NOTE | 2021-05-16 07:41 | NUR ---
SHIFT SUMMARY PT A/O X4, COARSE LUNG SOUNDS ALL ORTIZ, O2 AT 3L/M BNC, SPUTUM SENT TO LAB WITH THICK WHITE SPUTUM NOTED, BS AC/HS, LR INFUSING AT 100 ML, SCD'D ON, DROPLET ISOLATION CONTINUED FOR PAST HX OF MRSA IN SPUTUM. NO ACUTE DISTRESS THIS SHIFT.
[2021-05-16 11:31] LABS: Percent Saturation 37.9 % (20.0-50.0)
--- NOTE | 2021-05-16 15:30 | NUR ---
Spiritual care visit conducted. Patient's spouse, Georgina, requests that a Calculator Operator meet her in the chapel for the blessing of a crucifix. Georgina immediately tells me about her concerns about the pt and his continuing down turn in his health. She asks me to pray for his healing and to bless her neclace (a crucifix) which I gladly do. She also shares about the family unit complications, the personal struggles she has had and difficulty she is having managing the care of her 3 grandchildren and her all at the same time. I provide therapeutic listening, a calming presnce, anxiety containment, and gentle adult school counselor. Georgina responds well and shows signs of reduced stress and increased hope. I will contine to remain available to pt and fmaily
--- NOTE | 2021-05-16 17:08 | NUR ---
PT IS A/OX4, PLEASANT AND COOPERATIVE. THE PT REPORTS THAT HE FEELS HE IS BREATHING EASIER COMPARED TO YESTERDAY. THE PT IS ON 3L/MIN O2 AT REST. REQUIRS MORE OXYGEN WITH AMBULATION AND BECOMES SOB WITH MINIMAL ACTIVITY. THE PT DENIED ANY PAIN T/O THE DAY. DR. GOMEZ TAPER PRINTED CIRCUIT LAYOUT CONSULTED ON THE PT THIS AM. SPEACH THERAPY CONSULTED ON THE PT THIS AFTERNOON. CALL LIGHT IN REACH, WILL CONTINUE TO MONITOR AND ASSESS FOR CHANGES
--- NOTE | 2021-05-17 05:03 | NUR ---
SHIFT SUMMARY PT ALERT /ORIENTED X4, LUNGS COARSE ALL ORTIZ, OCCAS. PRODUCTIVE COUGH AND AND PT SUCTIONS WITH YANKAUER,O2 AT 4L/M BNC, C/O CHEST WALL PAIN WHEN TAKING DEEP BREATHS X1 AND WAS MEDICATED WITH TRAMADOL AND MED WAS EFFECTIVE, ALSO MEDICATED X1 FOR BACK PAIN PER EMAR AND MED EFFECTIVE, REQUESTED A FLUTTER VALUE AND DR. MARTINEZ MADE AWARE AND FLUTTER EMORY THERAPY ORDERED. PT RESTING WITH NO ACUTE DISTRESS NOTED.
[2021-05-17 05:04] LABS: BASOPHILS ABSOLUTE AUTO 0.01 K/mm3 (0.00-0.23); BASOPHILS PERCENT AUTO 0 % (0-2); EOSINOPHILS PERCENT AUTO 0 % (0-6); Hematocrit 24.1 % (37.0-53.0); IMMATURE GRAN ABSOLUTE AUTO 0.11 K/mm3 (0.00-0.10); IMMATURE GRAN PERCENT AUTO 1 % (0-1); LYMPHOCYTES ABSOLUTE AUTO 0.12 K/mm3 (0.84-5.20); LYMPHOCYTES PERCENT AUTO 1 % (21-46); MONOCYTES ABSOLUTE AUTO 0.27 K/mm3 (0.16-1.47); MONOCYTES PERCENT AUTO 3 % (4-13); Mean Corpuscular HGB 31.6 pg (26.0-34.0); Mean Corpuscular HGB Conc 33.2 g/dL (31.5-36.5); Mean Corpuscular Volume 95 fL (80-100); NEUTROPHILS ABSOLUTE AUTO 9.02 K/mm3 (1.96-9.15); NEUTROPHILS PERCENT AUTO 95 % (41-73); Platelet Count 165 K/mm3 (150-400); RDW Coefficient Variation 14.4 % (11.7-14.2); RDW Standard Deviation 49.7 fL (35.1-46.3); Red Blood Cell Count 2.53 M/mm3 (4.30-5.90); White Blood Cell Count 9.53 K/mm3 (4.00-11.30)
[2021-05-17 05:17] LABS: Base Excess Venous -4.4 mmol/L; Bicarbonate Venous 21.2 mmol/L (24.0-30.0); PCO2 Venous 30.3 mmHg (38-42); PO2 Venous 172 mmHg (38-42); pH Blood Venous 7.43 (7.34-7.37)
[2021-05-17 05:30] LABS: Calcium, Blood 7.6 mg/dL (8.5-10.1); Creatinine, Blood 2.16 mg/dL (0.60-1.20); Potassium, Blood 4.3 mmol/L (3.5-5.5)
--- NOTE | 2021-05-17 06:47 | NUR ---
0644 CALLED 0512 [facility] TO DR. MARTINEZ , NO NEW ORDERS RECIEVED
--- NOTE | 2021-05-17 11:50 | NUR ---
Spiritual care visit conducted. Pt tells me about his medical history, his life story, his spiritual journey and a long list of his hobbies and talents. Patient also shares about his concern moving forward that center around the mounting medical bills and his deteriorating health. Pt states that he is ready to go but he would appreciate staying around a bit longer. Overall, he is optimistic but but welcomes prayer and any assistance God may bring to him. I normalize his concerns, listen empathically and provide spiritual guidance, companionship and prayer. Patient reponds well and shows signs of increased peace. I will continue to remain available.
--- NOTE | 2021-05-18 07:37 | NUR ---
SHIFT SUMMARY PT A/OX4, MEDICATED WITH TRAMADOL X2 FOR C/O BACK PAIN AND MEDS WERE EFFECTIVE, LUNGS COARSE WITH O2 AT 4L/M BNC, NO ACUTE DISTRESS THIS SHIFT.
--- NOTE | 2021-05-18 11:03 | NUR ---
PATIENT IS A AND O 4X AND [place]. PATIENT GOT A SHOWER TODAY AND TOLERATED AMBULATION AND ACTIVITY WITH SOME HYPEROXYGENATION FROM 4L TO 6L. PATIENT NEEDED A BREATHING TREATMENT THIS MORNING DUE TO SOB AND WHEEZING. PATIENT HAD NO OTHER EVENTS OR COMPLAINTS.
[2021-05-19 04:55] LABS: BASOPHILS ABSOLUTE AUTO 0.01 K/mm3 (0.00-0.23); BASOPHILS PERCENT AUTO 0 % (0-2); EOSINOPHILS PERCENT AUTO 0 % (0-6); IMMATURE GRAN ABSOLUTE AUTO 0.24 K/mm3 (0.00-0.10); IMMATURE GRAN PERCENT AUTO 3 % (0-1); LYMPHOCYTES ABSOLUTE AUTO 0.15 K/mm3 (0.84-5.20); LYMPHOCYTES PERCENT AUTO 2 % (21-46); MONOCYTES ABSOLUTE AUTO 0.43 K/mm3 (0.16-1.47); MONOCYTES PERCENT AUTO 6 % (4-13); Mean Corpuscular HGB 30.5 pg (26.0-34.0); Mean Corpuscular HGB Conc 32.1 g/dL (31.5-36.5); Mean Corpuscular Volume 95 fL (80-100); Mean Platelet Volume 10.3 fL (9.1-12.4); NEUTROPHILS PERCENT AUTO 89 % (41-73); Platelet Count 195 K/mm3 (150-400); RDW Coefficient Variation 14.4 % (11.7-14.2); RDW Standard Deviation 49.8 fL (35.1-46.3); Red Blood Cell Count 2.95 M/mm3 (4.30-5.90); White Blood Cell Count 7.73 K/mm3 (4.00-11.30)
[2021-05-19 05:32] LABS: Bun/Creatinine Ratio 32.8 (12.0-20.0); Calcium, Blood 7.7 mg/dL (8.5-10.1); Creatinine, Blood 2.32 mg/dL (0.60-1.20); Potassium, Blood 4.8 mmol/L (3.5-5.5)
--- NOTE | 2021-05-19 07:39 | NUR ---
MEAT CUTTING BLOCK REPAIRER SUMMARY ADMITTED FOR ACUTE AND CHRONIC RESPIRATORY FAILURE. PT IS A FULL CODE. HE HAS A HISTORY OF BILATERAL LUNG TRANSPLANT AND PROSTATE CANCER. HIS LUNGS SOUND COARSE THROUGHOUT AND HE HAS A COUGH PRODUCTIVE WITH WHITE AND MILKY MUCOUS THAT HE USES SUCTION EQUIPMENT FOR. PT HAD TWO PRN BREATHING TREATMENTS LAST NIGHT WITH SOME IMPROVEMENT IN HIS SYMPTOMS. MEDICATED FOR PAIN IN HIS BACK PER EMAR. PT PLEASANT AND COOPERATIVE. ON 4L BY NC - NORMALLY ON 3L AT BASELINE. HE IS A 1PA WITH A FWW BUT USES THE URINAL. CALLS APPROPRIATELY.
--- NOTE | 2021-05-19 18:13 | NUR ---
SHIFT SUMMARY PT A&O X4 & IN PLEASENT MOOD T/O SHIFT. PT APPEARS ANXIOUS, SHAKEY T/O SHIFT. PT VERBALIZED, "I AM ANXIOUS BECAUSE MY AND I JUST TOOK IN THREE GRANDBABIES." PT IS ANXIOUS ABOUT UPCOMING PROCEDURE. PT REQUESTED RT BREATHING TREATMENTS T/O SHIFT. BLOOD GLUCOSE MEDICATED PER EMAR. VSS. CALL LIGHT W/IN REACH. 4L NC, PT ABLE TO SELF SUCTION. SPOUSE TO BRING IN BETTER FLUTTER VALVE FROM HOME.
[2021-05-20 05:12] LABS: BASOPHILS PERCENT AUTO 0 % (0-2); EOSINOPHILS PERCENT AUTO 0 % (0-6); Hematocrit 27.8 % (37.0-53.0); Hemoglobin 8.8 g/dL (13.5-17.5); IMMATURE GRAN ABSOLUTE AUTO 0.38 K/mm3 (0.00-0.10); IMMATURE GRAN PERCENT AUTO 5 % (0-1); LYMPHOCYTES ABSOLUTE AUTO 0.21 K/mm3 (0.84-5.20); LYMPHOCYTES PERCENT AUTO 3 % (21-46); MONOCYTES PERCENT AUTO 8 % (4-13); Mean Corpuscular HGB Conc 31.7 g/dL (31.5-36.5); Mean Corpuscular Volume 95 fL (80-100); NEUTROPHILS PERCENT AUTO 85 % (41-73); Platelet Count 184 K/mm3 (150-400); RDW Coefficient Variation 14.6 % (11.7-14.2); RDW Standard Deviation 50.4 fL (35.1-46.3); Red Blood Cell Count 2.93 M/mm3 (4.30-5.90); White Blood Cell Count 8.49 K/mm3 (4.00-11.30)
[2021-05-20 05:58] LABS: Albumin, Blood 2.5 g/dL (3.4-5.0); Bilirubin, Total 0.3 mg/dL (0.1-1.0); Calcium, Blood 7.6 mg/dL (8.5-10.1); Creatinine, Blood 2.35 mg/dL (0.60-1.20); Globulin, Blood 2.5 g/dL (2.2-4.0); Potassium, Blood 5.1 mmol/L (3.5-5.5)
--- NOTE | 2021-05-20 07:27 | NUR ---
SHIFT SUMMARY PT IS A 70 Y/O MALE, ADMITTED ACUTE ON CHRONIC RESPIRATORY FAILURE. HE IS A&O X 4, 1PA C FWW TO THE BATHROOM. CURRENTLY ON 3L VIA NC, SATTING > 90%. VITAL SIGNS STABLE. NO C/O ACUTE PAIN, NAUSEA OR SOB. NO ACUTE CHANGES IN PT CONDITION NOTED. REPORT GIVEN TO ONCOMING RN.
--- NOTE | 2021-05-20 17:33 | NUR ---
SHIFT SUMMARY PT A&O X4 AND IN PLEASENT MOOD T/O SHIFT. PT @ BEDSIDE DURING VISITING HOURS. [place]. MEDICATED ANXIETY PER EMAR. RESTED COMFORTABLY IN BED T/O SHIFT. VSS. CALL LIGHT W/IN REACH. 3L NC. MULTIPLE BREATHING TREATMENTS T/O SHIFT, PER RT. HYPERGLYCEMIA MEDICATED PER EMAR AC/HS
[2021-05-21 04:55] LABS: BASOPHILS ABSOLUTE AUTO 0.02 K/mm3 (0.00-0.23); BASOPHILS PERCENT AUTO 0 % (0-2); EOSINOPHILS ABSOLUTE AUTO 0.01 K/mm3 (0.00-0.68); EOSINOPHILS PERCENT AUTO 0 % (0-6); Hematocrit 27.4 % (37.0-53.0); Hemoglobin 8.9 g/dL (13.5-17.5); IMMATURE GRAN ABSOLUTE AUTO 0.41 K/mm3 (0.00-0.10); IMMATURE GRAN PERCENT AUTO 5 % (0-1); LYMPHOCYTES ABSOLUTE AUTO 0.36 K/mm3 (0.84-5.20); LYMPHOCYTES PERCENT AUTO 4 % (21-46); MONOCYTES ABSOLUTE AUTO 0.85 K/mm3 (0.16-1.47); MONOCYTES PERCENT AUTO 10 % (4-13); Mean Corpuscular HGB 30.9 pg (26.0-34.0); Mean Corpuscular HGB Conc 32.5 g/dL (31.5-36.5); Mean Corpuscular Volume 95 fL (80-100); Mean Platelet Volume 10.3 fL (9.1-12.4); NEUTROPHILS ABSOLUTE AUTO 6.89 K/mm3 (1.96-9.15); NEUTROPHILS PERCENT AUTO 81 % (41-73); Platelet Count 176 K/mm3 (150-400); RDW Coefficient Variation 15.1 % (11.7-14.2); RDW Standard Deviation 52.4 fL (35.1-46.3); Red Blood Cell Count 2.88 M/mm3 (4.30-5.90); White Blood Cell Count 8.54 K/mm3 (4.00-11.30)
[2021-05-21 05:17] LABS: Albumin, Blood 2.5 g/dL (3.4-5.0); Bilirubin, Total 0.3 mg/dL (0.1-1.0); Bun/Creatinine Ratio 38.5 (12.0-20.0); Calcium, Blood 7.8 mg/dL (8.5-10.1); Creatinine, Blood 2.05 mg/dL (0.60-1.20); Globulin, Blood 2.5 g/dL (2.2-4.0)
[2021-05-21 11:13] LABS: Stool Occult Blood Guaiac 1 Neg (Neg)
--- NOTE | 2021-05-22 04:08 | NUR ---
SHIFT SUMMARY ADMITTED FOR PNEUMONIA. FULL CODE. PLAN IS FOR DC HOME TODAY. HX OF BILATERAL LUNG TRANSPLANT. ANTI REJECTION MEDS ARE SCHEDULED. 4 LPM O2 @ BASELINE, 6 LPM O2 W/EXERTION. DR. GOMEZ IS CONSULT. IV ANTIB RX ARE SCHEDULED. ACHS CHEMSTICKS. SCATTERED RONCHI THROUGHOUT LUNGS. RT TX'S ARE SCHEDULED. STANDBY ASSIST W/BRP.
[2021-05-22 05:13] LABS: BASOPHILS ABSOLUTE AUTO 0.02 K/mm3 (0.00-0.23); BASOPHILS PERCENT AUTO 0 % (0-2); EOSINOPHILS ABSOLUTE AUTO 0.05 K/mm3 (0.00-0.68); EOSINOPHILS PERCENT AUTO 1 % (0-6); Hematocrit 25.7 % (37.0-53.0); Hemoglobin 8.5 g/dL (13.5-17.5); IMMATURE GRAN ABSOLUTE AUTO 0.34 K/mm3 (0.00-0.10); IMMATURE GRAN PERCENT AUTO 4 % (0-1); LYMPHOCYTES ABSOLUTE AUTO 0.49 K/mm3 (0.84-5.20); LYMPHOCYTES PERCENT AUTO 6 % (21-46); MONOCYTES PERCENT AUTO 12 % (4-13); Mean Corpuscular HGB 31.3 pg (26.0-34.0); Mean Corpuscular HGB Conc 33.1 g/dL (31.5-36.5); Mean Corpuscular Volume 95 fL (80-100); Mean Platelet Volume 9.7 fL (9.1-12.4); NEUTROPHILS ABSOLUTE AUTO 6.69 K/mm3 (1.96-9.15); NEUTROPHILS PERCENT AUTO 78 % (41-73); Platelet Count 165 K/mm3 (150-400); RDW Coefficient Variation 15.1 % (11.7-14.2); RDW Standard Deviation 51.7 fL (35.1-46.3); Red Blood Cell Count 2.72 M/mm3 (4.30-5.90); White Blood Cell Count 8.59 K/mm3 (4.00-11.30)
[2021-05-22 05:35] LABS: Bun/Creatinine Ratio 34.1 (12.0-20.0); Calcium, Blood 8.1 mg/dL (8.5-10.1); Creatinine, Blood 1.79 mg/dL (0.60-1.20); Potassium, Blood 4.6 mmol/L (3.5-5.5)
--- NOTE | 2021-05-22 12:17 | NUR ---
Received referral from nurse dog daycare provider (Evelia Peacock) on 05/16/2021. Patient may discharge 05/22/2021 with orders [facility] Met with patient and patient's (Georgina Anderson) on 05/18/2021 to further discuss the above. Patient and are mostly agreeable to the above. Discussed homebound status definition with patient and . Patient and verbalized understanding. Discussed what home health is vs what it is not (in home caregivers/housekeeping). Patient and verbalized understanding. Discussed the next steps in the process of an initial assessment to determine frequency of visits. Again patient and verbalized understanding. Offered a chance for patient and to ask questions regarding the above of which there were none. At this time patient has no discharge orders entered. Will continue to monitor and follow for discharge. Megan Ferraro Referral Liaison
[2021-05-22] MEDS ORDERED: CEFP200 PO (13:57)
[2021-05-22] MEDS ORDERED: BUSP5 PO (13:58)
[2021-05-22] MEDS ORDERED: SODIUM BICARBO325 M1 PO (14:01)
--- NOTE | 2021-05-22 14:20 | NUR ---
Met pt. in bed resting he is ndoing much better prayed for him
[2021-05-22] MEDS ORDERED: VITAMIN D32000 UNI2 PO (17:03)
--- NOTE | 2021-05-22 18:30 | NUR ---
SUMMARY- PT A/O, BEDREST MOSTLY WITH SBA BRP. SEVERE DYSPNEA WITH ACTIVITY. HOLDING DISCHARGE BECAUSE PT HAD SEVERE WHEEZE/DYSPNIC EPISODE WHEN TRYING TO GET READY FOR DC. CALLED DR PROCTOR WHO AGREED TO DIFER DISCHARGE AND CONTINUE WITH IV SOLUMEDROL. CALLED TO NOTIFY OF DELAY IN DISCHARGE. PT'S SATS NEVER BELOW 96% EVEN WHEN RR 38. BRONCHIAL WHEEZE UPPER, CLEARS AIR INTO BASES BUT PT HAS BASELINE ANXIETY COMPONENT. TOOK 2 NEBS AND ABOUT 10 MIN FOR PT TO RECOVER. SLEPT MOST OF THE AFTERNOON. TOLERATING FOOD AND FLUIDS. PAIN IN BACK AND FLANK CONTROLLED WITH ONE VICODIN Q4.
--- NOTE | 2021-05-23 04:39 | NUR ---
SHIFT SUMMARY ADMITTED FOR PNEUMONIA. FULL CODE. PLAN IS FOR DC HOME. HE WILL FOLLOW UP OUTPT W/FACILITY IN [facility]. HX OF BILAT LUNG TRANSPLANT. ANXIETY NOTED, ANXIETY MEDS GIVEN. IV ANTIB RX GIVEN. HE IS ACHS CHEMSTICKS. ANTIREJECTION RX LABS DRAWN ORDERED. DR. GOMEZ IS CONSULT. HE IS A STANDBY ASSIST W/BRP. HE IS ON 4 LPM O2 @ REST, 6 LPM O2 W/ACTIVITY. SOLUMEDROL GIVEN ORDERED.
--- NOTE | 2021-05-23 15:02 | NUR ---
Patient now has discharge orders entered. Gathered all supporting documentation for referral (face sheet, face to face, med list, H&P, and most recent PT assessment) and sent to [facility] for review. No further interventions required. Megan Ferraro Referral Liaison
--- NOTE | 2021-05-23 16:23 | NUR ---
pt discharged PT DISCHARGED THE PT AND HIS VERBALIZED UNDERSTANDING OF THE DC INSTRUCTIONS.[facility]. THE PT WAS ON PORTABLE O2 AT THE TIME OF DC. PT WAS OSB WITH MINIMAL ACTIVITY. THE PT WAS TRANSFERED VIA WHEELCHAIR TO THE ENTRANCE TO MEET HIS
== END 2021-05-23 16:15 | disposition home health service (06) | DRG 871 ==
LOC: ER 11:40 → MEDS 14:28
PROVIDERS: Internal Medicine; Physician Assistant; ADMIT Internal Medicine
DX: A41.9 Sepsis, unspecified organism (principal); J15.5 Pneumonia due to Escherichia coli; J96.21 Acute and chronic respiratory failure with hypoxia; G08 Intracranial and intraspinal phlebitis and thrombophlebitis; B37.1 Pulmonary candidiasis; Z94.2 Lung transplant status; J44.1 Chronic obstructive pulmonary disease with (acute) exacerbation; J44.0 Chronic obstructive pulmonary disease with (acute) lower respiratory infection; N18.4 Chronic kidney disease, stage 4 (severe); N17.9 Acute kidney failure, unspecified; E87.2 Acidosis; R65.20 Severe sepsis without septic shock; D50.9 Iron deficiency anemia, unspecified; F41.9 Anxiety disorder, unspecified; M19.90 Unspecified osteoarthritis, unspecified site; K21.9 Gastro-esophageal reflux disease without esophagitis; D63.1 Anemia in chronic kidney disease; M81.0 Age-related osteoporosis without current pathological fracture; E78.5 Hyperlipidemia, unspecified; J98.09 Other diseases of bronchus, not elsewhere classified; D72.829 Elevated white blood cell count, unspecified; T38.0X5A Adverse effect of glucocorticoids and synthetic analogues, initial encounter; G47.33 Obstructive sleep apnea (adult) (pediatric); F32.A Depression, unspecified; E03.9 Hypothyroidism, unspecified; Z86.718 Personal history of other venous thrombosis and embolism; Z85.46 Personal history of malignant neoplasm of prostate; Z92.21 Personal history of antineoplastic chemotherapy; Z79.890 Hormone replacement therapy; Z92.3 Personal history of irradiation; Z98.890 Other specified postprocedural states; Z87.891 Personal history of nicotine dependence; Z79.82 Long term (current) use of aspirin; Z79.899 Other long term (current) drug therapy
CPT/HCPCS: 0241U; 36415; 71046; 71260; 80048; 80053; 80195; 80197; 82270; 82728; 82803; 82947; 83540; 83550; 83880; 84484; 85025; 85027; 87070; 87077; 87186; 87205; 92610; 93005; 93010; 94640; 94644; 94664; 94760; 94762; 96374; 96375; 97116; 97162; 97530; 97530-CQ; 99285-25; A9270; J0696; J1644; J1815; J2405; J2543; J2930; J7030; J7120; J7507; J7512; J7520; Q9967

== ENCOUNTER 2021-06-21 09:28 | Inpatient (IN) | payer MEDICARE ==
[~2021-06-21] VITALS: Ht 162.6 cm; Wt 79.4 kg
[~2021-06-21 09:28] MED LIST changes: +BUSP5 PO; +SODIUM BICARBO325 M1 PO; +VITAMIN D32000 UNI2 PO
[2021-06-21 09:59] LABS: BASOPHILS ABSOLUTE AUTO 0.03 K/mm3 (0.00-0.23); BASOPHILS PERCENT AUTO 1 % (0-2); EOSINOPHILS ABSOLUTE AUTO 0.06 K/mm3 (0.00-0.68); EOSINOPHILS PERCENT AUTO 1 % (0-6); Hematocrit 26.1 % (37.0-53.0); Hemoglobin 8.3 g/dL (13.5-17.5); IMMATURE GRAN ABSOLUTE AUTO 0.14 K/mm3 (0.00-0.10); IMMATURE GRAN PERCENT AUTO 3 % (0-1); LYMPHOCYTES ABSOLUTE AUTO 0.98 K/mm3 (0.84-5.20); LYMPHOCYTES PERCENT AUTO 18 % (21-46); MONOCYTES ABSOLUTE AUTO 0.76 K/mm3 (0.16-1.47); MONOCYTES PERCENT AUTO 14 % (4-13); Mean Corpuscular HGB 31.9 pg (26.0-34.0); Mean Corpuscular HGB Conc 31.8 g/dL (31.5-36.5); Mean Corpuscular Volume 100 fL (80-100); Mean Platelet Volume 9.6 fL (9.1-12.4); NEUTROPHILS ABSOLUTE AUTO 3.55 K/mm3 (1.96-9.15); NEUTROPHILS PERCENT AUTO 64 % (41-73); Platelet Count 218 K/mm3 (150-400); RDW Coefficient Variation 14.4 % (11.7-14.2); RDW Standard Deviation 50.8 fL (35.1-46.3); White Blood Cell Count 5.52 K/mm3 (4.00-11.30)
[2021-06-21 10:18] LABS: Albumin, Blood 2.9 g/dL (3.4-5.0); Bilirubin, Total 0.2 mg/dL (0.1-1.0); Bun/Creatinine Ratio 14.7 (12.0-20.0); Calcium, Blood 7.8 mg/dL (8.5-10.1); Creatinine, Blood 1.97 mg/dL (0.60-1.20); Globulin, Blood 2.9 g/dL (2.2-4.0); Total Protein, Blood 5.8 g/dL (6.4-8.2)
[2021-06-21 14:34] LABS: Influenza A, PCR NEGATIVE (NEGATIVE); Influenza B, PCR NEGATIVE (NEGATIVE); Resp Syncytial Virus, PCR NEGATIVE (NEGATIVE); SARS-Cov-2 (COVID-19) PCR, MMC NEGATIVE (NEGATIVE)
[2021-06-21] MEDS ORDERED: BUME2 PO (21:17)
[2021-06-21] MEDS ORDERED: KLOR-CON 1010 ME3 PO (21:17)
[2021-06-22 05:15] LABS: BASOPHILS ABSOLUTE AUTO 0.03 K/mm3 (0.00-0.23); BASOPHILS PERCENT AUTO 1 % (0-2); EOSINOPHILS ABSOLUTE AUTO 0.04 K/mm3 (0.00-0.68); EOSINOPHILS PERCENT AUTO 1 % (0-6); Hematocrit 24.3 % (37.0-53.0); Hemoglobin 7.8 g/dL (13.5-17.5); IMMATURE GRAN ABSOLUTE AUTO 0.12 K/mm3 (0.00-0.10); IMMATURE GRAN PERCENT AUTO 3 % (0-1); LYMPHOCYTES ABSOLUTE AUTO 0.84 K/mm3 (0.84-5.20); LYMPHOCYTES PERCENT AUTO 19 % (21-46); MONOCYTES ABSOLUTE AUTO 0.69 K/mm3 (0.16-1.47); MONOCYTES PERCENT AUTO 16 % (4-13); Mean Corpuscular HGB 31.7 pg (26.0-34.0); Mean Corpuscular HGB Conc 32.1 g/dL (31.5-36.5); Mean Corpuscular Volume 99 fL (80-100); Mean Platelet Volume 9.6 fL (9.1-12.4); NEUTROPHILS ABSOLUTE AUTO 2.72 K/mm3 (1.96-9.15); NEUTROPHILS PERCENT AUTO 61 % (41-73); Platelet Count 198 K/mm3 (150-400); RDW Coefficient Variation 14.4 % (11.7-14.2); RDW Standard Deviation 50.4 fL (35.1-46.3); Red Blood Cell Count 2.46 M/mm3 (4.30-5.90); White Blood Cell Count 4.44 K/mm3 (4.00-11.30)
--- NOTE | 2021-06-22 05:35 | NUR ---
SHIFT SUMMARY NEW ED ADMIT THIS EVENING. PT HAD A MOSTLY UNEVENTFUL NIGHT. SLEPT OFF AND ON. REMAINED ON BASELINE 4 L WITH O2 SATS IN THE HIGH 90'S. PT IS SOB EVEN AT REST. PT REPORTS THAT HE IS CHRONICALLY SOB BUT WAS WORSE YESTERDAY WHEN COMING TO THE ER. SUCTION SET UP AT BEDSIDE AND PT SELF SUCTIONS NEEDED. OCCASSIONAL COUGH WITH THICK CLEAR SPUTUM. SAMPLE SENT TO LAB FOR SPUTUM CULTURE BUT SPECIMEN WAS REPORTED TO BE INADAQUATE. PT WAS ABLE TO TRANSFER FROM THE [facility] TO THE BED WITH JUST A SBA. PT DID REPORT PAIN IN LUNGS, MEDICATED X 1 W/ 0.5 MG IV DILAUDID W/ GOOD EFFECT. PT HAS BEEN NPO SINCE MIDNIGHT FOR POSSIBLE BROCHOSCOPY TODAY. HAD A SNACK BEFORE MIDNIGHT OF A SANDWICH AND A JELLO CUP. PT AWAITING COBRA TRANSFER TO [facility].
[2021-06-22 05:59] LABS: Albumin, Blood 2.7 g/dL (3.4-5.0); Anion Gap 7 mmol/L (6-16); Blood Urea Nitrogen 29 mg/dL (8-24); Bun/Creatinine Ratio 14.1 (12.0-20.0); CO2, Blood 26 mmol/L (21-32); Calcium, Blood 7.7 mg/dL (8.5-10.1); Chloride, Blood 110 mmol/L (98-108); Creatinine, Blood 2.06 mg/dL (0.60-1.20); Glomerular Filtration Rate 32 (60-); Glucose, Blood 129 mg/dL (70-99); Phosphorus, Blood 4.1 mg/dL (2.5-4.9); Potassium, Blood 4.4 mmol/L (3.5-5.5); Sodium, Blood 143 mmol/L (136-145); Vancomycin, Random 15.2 ug/mL
--- NOTE | 2021-06-22 14:37 | NUR ---
COBRA ORDERS: UNABLE TO ENTER RECEIVING FACILITY NAME IN COBRA TRANSFER ORDERS. [facility] IN [place] IS THE RECEIVING FACILITY.
--- NOTE | 2021-06-22 18:57 | NUR ---
Pt discharged today, transported to [facility], reported called in to nurse. Transported arrvied at 530pm, at [facility] very angry about trnasport, stating that they pay for medflight, and her should be flown to [place]. MD arrived at [facility] to discuss situation, pt and finally agreed to transport to [facility]. pt left at 545pm.
== END 2021-06-22 17:47 | disposition hospice, inpatient (51) | DRG 196 ==
LOC: ER 09:28 → MEDS 20:28
PROVIDERS: Emergency Medicine; Internal Medicine Critical Care Medicine; ADMIT Internal Medicine
DX: J84.112 Idiopathic pulmonary fibrosis (principal); J96.01 Acute respiratory failure with hypoxia; J47.1 Bronchiectasis with (acute) exacerbation; D84.9 Immunodeficiency, unspecified; Z94.2 Lung transplant status; J98.11 Atelectasis; J98.09 Other diseases of bronchus, not elsewhere classified; N18.30 Chronic kidney disease, stage 3 unspecified; E11.22 Type 2 diabetes mellitus with diabetic chronic kidney disease; D63.1 Anemia in chronic kidney disease; Z20.822 Contact with and (suspected) exposure to COVID-19; M54.9 Dorsalgia, unspecified; M19.90 Unspecified osteoarthritis, unspecified site; K21.9 Gastro-esophageal reflux disease without esophagitis; G47.33 Obstructive sleep apnea (adult) (pediatric); E03.9 Hypothyroidism, unspecified; Z85.46 Personal history of malignant neoplasm of prostate; Z86.718 Personal history of other venous thrombosis and embolism; Z98.890 Other specified postprocedural states; Z87.891 Personal history of nicotine dependence; Z79.899 Other long term (current) drug therapy; Z79.82 Long term (current) use of aspirin
CPT/HCPCS: 0241U; 36415; 71045; 80053; 80069; 80202; 82947; 83690; 83880; 84484; 85025; 93005; 93010; 94640; 94664; 94762; 96365; 96366; 96367; 96375; 96376; 99285-25; A9270; G0378; J0692; J1170; J2405; J2543; J3370; J7050; J7507; J7512; J7520

== ENCOUNTER 2021-06-27 09:44 | Emergency (ER) | payer MEDICARE ==
[~2021-06-27] VITALS: Ht 167.6 cm; Wt 79.4 kg
[~2021-06-27 09:44] MED LIST changes: +BUME2 PO; +KLOR-CON 1010 ME3 PO
[2021-06-27 10:40] LABS: BASOPHILS ABSOLUTE AUTO 0.05 K/mm3 (0.00-0.23); BASOPHILS PERCENT AUTO 1 % (0-2); EOSINOPHILS ABSOLUTE AUTO 0.12 K/mm3 (0.00-0.68); EOSINOPHILS PERCENT AUTO 2 % (0-6); Hematocrit 28.3 % (37.0-53.0); Hemoglobin 9.1 g/dL (13.5-17.5); IMMATURE GRAN ABSOLUTE AUTO 0.16 K/mm3 (0.00-0.10); IMMATURE GRAN PERCENT AUTO 2 % (0-1); LYMPHOCYTES ABSOLUTE AUTO 0.91 K/mm3 (0.84-5.20); LYMPHOCYTES PERCENT AUTO 11 % (21-46); MONOCYTES PERCENT AUTO 11 % (4-13); Mean Corpuscular HGB 31.6 pg (26.0-34.0); Mean Corpuscular HGB Conc 32.2 g/dL (31.5-36.5); Mean Corpuscular Volume 98 fL (80-100); Mean Platelet Volume 9.5 fL (9.1-12.4); NEUTROPHILS ABSOLUTE AUTO 6.11 K/mm3 (1.96-9.15); NEUTROPHILS PERCENT AUTO 74 % (41-73); Platelet Count 219 K/mm3 (150-400); RDW Coefficient Variation 14.3 % (11.7-14.2); RDW Standard Deviation 51.8 fL (35.1-46.3); Red Blood Cell Count 2.88 M/mm3 (4.30-5.90); White Blood Cell Count 8.25 K/mm3 (4.00-11.30)
[2021-06-27 10:56] LABS: Albumin, Blood 3.2 g/dL (3.4-5.0); Albumin/Globulin Ratio 1.1 (0.8-1.8); Bilirubin, Total 0.3 mg/dL (0.1-1.0); Bun/Creatinine Ratio 15.1 (12.0-20.0); Calcium, Blood 8.4 mg/dL (8.5-10.1); Creatinine, Blood 2.12 mg/dL (0.60-1.20); Globulin, Blood 2.9 g/dL (2.2-4.0); Potassium, Blood 4.8 mmol/L (3.5-5.5); Total Protein, Blood 6.1 g/dL (6.4-8.2)
[2021-06-27] MEDS ORDERED: DOXY100 PO (13:05)
== END 2021-06-27 15:19 | disposition home or self-care (01) ==
LOC: ER 09:44
PROVIDERS: Student in an Organized Health Care Education/Training Program
DX: J84.112 Idiopathic pulmonary fibrosis (principal); K21.9 Gastro-esophageal reflux disease without esophagitis; E03.9 Hypothyroidism, unspecified; Z79.899 Other long term (current) drug therapy
CPT/HCPCS: 36415; 71045; 80053; 82947; 84484; 85025; 93005; 93010; 94640; 94664; 99285-25; A9270; J7512

== ENCOUNTER 2021-07-09 04:47 | Inpatient (IN) | payer MEDICARE ==
[~2021-07-09] VITALS: Ht 177.8 cm; Wt 72.6 kg
[2021-07-09] MEDS ORDERED: LOSARTAN POTASS25 M2 PO (05:13)
[2021-07-09] MEDS ORDERED: MONT10T (05:13)
[2021-07-09] MEDS ORDERED: TRAM50 PO (05:14)
[2021-07-09] MEDS ORDERED: FLUC200 PO (05:14)
[2021-07-09] MEDS ORDERED: FOSAMAX70 MG PO (05:14)
[2021-07-09] MEDS ORDERED: TAMSULOSIN HCL0.4 M1 PO (05:14)
[2021-07-09] MEDS ORDERED: SULFAMETHOXAZO1 EACH PO (05:14)
[2021-07-09] MEDS ORDERED: DOXY100 PO (05:15)
[2021-07-09] MEDS ORDERED: KLOR-CON 1010 ME7 PO (05:15)
[2021-07-09] MEDS ORDERED: SIROLIMUS PO (05:15)
[2021-07-09] MEDS ORDERED: ONDANSETRON ODT 4MG (05:15)
[2021-07-09] MEDS ORDERED: BUMETANIDE2 M6 PO (05:15)
[2021-07-09] MEDS ORDERED: ALUMINUM H320 MG/5 M (05:16)
[2021-07-09 05:32] LABS: BASOPHILS ABSOLUTE AUTO 0.03 K/mm3 (0.00-0.23); BASOPHILS PERCENT AUTO 0 % (0-2); EOSINOPHILS ABSOLUTE AUTO 0.12 K/mm3 (0.00-0.68); EOSINOPHILS PERCENT AUTO 1 % (0-6); Hematocrit 29.9 % (37.0-53.0); Hemoglobin 9.6 g/dL (13.5-17.5); IMMATURE GRAN ABSOLUTE AUTO 0.11 K/mm3 (0.00-0.10); IMMATURE GRAN PERCENT AUTO 1 % (0-1); LYMPHOCYTES ABSOLUTE AUTO 0.93 K/mm3 (0.84-5.20); LYMPHOCYTES PERCENT AUTO 7 % (21-46); MONOCYTES ABSOLUTE AUTO 0.85 K/mm3 (0.16-1.47); MONOCYTES PERCENT AUTO 6 % (4-13); Mean Corpuscular HGB 31.4 pg (26.0-34.0); Mean Corpuscular HGB Conc 32.1 g/dL (31.5-36.5); Mean Corpuscular Volume 98 fL (80-100); Mean Platelet Volume 9.7 fL (9.1-12.4); NEUTROPHILS ABSOLUTE AUTO 11.55 K/mm3 (1.96-9.15); NEUTROPHILS PERCENT AUTO 85 % (41-73); Platelet Count 177 K/mm3 (150-400); RDW Coefficient Variation 13.2 % (11.7-14.2); RDW Standard Deviation 47.7 fL (35.1-46.3); Red Blood Cell Count 3.06 M/mm3 (4.30-5.90); White Blood Cell Count 13.59 K/mm3 (4.00-11.30)
[2021-07-09 05:38] LABS: Albumin, Blood 3.4 g/dL (3.4-5.0); Albumin/Globulin Ratio 1.3 (0.8-1.8); Bilirubin, Total 0.4 mg/dL (0.1-1.0); Bun/Creatinine Ratio 23.1 (12.0-20.0); Calcium, Blood 8.6 mg/dL (8.5-10.1); Creatinine, Blood 1.6 mg/dL (0.60-1.20); Globulin, Blood 2.7 g/dL (2.2-4.0); Potassium, Blood 4.9 mmol/L (3.5-5.5); Total Protein, Blood 6.1 g/dL (6.4-8.2)
[2021-07-09 05:50] LABS: Influenza A, PCR NEGATIVE (NEGATIVE); Influenza B, PCR NEGATIVE (NEGATIVE); Resp Syncytial Virus, PCR NEGATIVE (NEGATIVE); SARS-Cov-2 (COVID-19) PCR, MMC NEGATIVE (NEGATIVE)
[2021-07-09 05:55] LABS: Source, Urine Clean Catch
[2021-07-09 05:59] LABS: Appearance, Urine Clear (Clear); Bilirubin, Urine Neg (Neg); Blood, Urine 4+ (Neg); Color, Urine Yellow (P-Yellow); Glucose Qualitative, Urine Neg (Neg); Ketones, Urine Neg (Neg); Leukocyte Esterase, Urine Neg (Neg); Nitrite, Urine Neg (Neg); Protein, Urine 3+ (Neg); Urobilinogen, Urine NORM (Normal)
[2021-07-09 06:18] LABS: White Blood Cells, Urine 0-2 /hpf (0-5)
[2021-07-09 06:20] LABS: Hyaline Casts 0-2 /lpf (0-2); Squamous Epithelial Cells Rare /hpf (Few)
[2021-07-09 06:24] LABS: Bacteria Few /hpf
[2021-07-09 06:25] LABS: Amorphous Light (0-Heavy)
--- NOTE | 2021-07-09 17:14 | NUR ---
END OF SHIFT SUMMARY Pt admitted to medical floor at 0830 this morning. At the start of shift pt was febrile, reported SOB. Tylenol given in ER, rechecked temp 11am, temp WNL. Pt slept comfortably all shift, RN awakened pt from deep sleep to give meds & perform assessment. IV fluids infusing, NPO start of shift. assessed pt at bedside, D/C'd NPO upgraded to Reg diet. stated pt will remain hospitilized over the next several days to receive IV ABX. Pt on 4L O2 (baseline), continuous suction, pts suctions self, small amount of oral secretions this shift. No other concerns at this time.
[2021-07-10 04:54] LABS: BASOPHILS ABSOLUTE AUTO 0.01 K/mm3 (0.00-0.23); BASOPHILS PERCENT AUTO 0 % (0-2); EOSINOPHILS PERCENT AUTO 0 % (0-6); Hematocrit 26.3 % (37.0-53.0); Hemoglobin 8.6 g/dL (13.5-17.5); IMMATURE GRAN ABSOLUTE AUTO 0.18 K/mm3 (0.00-0.10); IMMATURE GRAN PERCENT AUTO 1 % (0-1); LYMPHOCYTES ABSOLUTE AUTO 0.25 K/mm3 (0.84-5.20); LYMPHOCYTES PERCENT AUTO 1 % (21-46); MONOCYTES ABSOLUTE AUTO 0.31 K/mm3 (0.16-1.47); MONOCYTES PERCENT AUTO 2 % (4-13); Mean Corpuscular HGB 31.3 pg (26.0-34.0); Mean Corpuscular HGB Conc 32.7 g/dL (31.5-36.5); Mean Corpuscular Volume 96 fL (80-100); Mean Platelet Volume 10.3 fL (9.1-12.4); NEUTROPHILS ABSOLUTE AUTO 17.73 K/mm3 (1.96-9.15); NEUTROPHILS PERCENT AUTO 96 % (41-73); Platelet Count 141 K/mm3 (150-400); RDW Coefficient Variation 13.2 % (11.7-14.2); RDW Standard Deviation 46.4 fL (35.1-46.3); Red Blood Cell Count 2.75 M/mm3 (4.30-5.90); White Blood Cell Count 18.48 K/mm3 (4.00-11.30)
--- NOTE | 2021-07-10 05:17 | NUR ---
SHIFT SUMMARY 70 YR M ADMITTED ON 07/09/21 FOR SEPSIS. FULL CODE. PT IS A BILAT LUNG TRANSPLANT RECIPIENT AND IS CURRENTLY ON 4L 02 (BASELINE). AT HIS REQUEST RT WAS CALLED FOR A BREATHING TX THIS SHIFT. PT STATED THIS HELPED HIM TO BREATHE MUCH BETTER. BREATHING IS LABORED. PT IS CURRENTLY RECEIVING IV ABX FOR SEPSIS. HE USES URINAL INDEPENDANTLY AND CALLS APPROPRIATELY. HE IS PLEASANT AND COOPERATIVE AND PROACTIVE IN HIS OWN CARE. SUCTION AT BEDSIDE AND PT SUCTIONS HIMSELF WHEN NEEDED.
[2021-07-10 05:24] LABS: Albumin, Blood 2.7 g/dL (3.4-5.0); Albumin/Globulin Ratio 0.9 (0.8-1.8); Bilirubin, Total 0.3 mg/dL (0.1-1.0); Bun/Creatinine Ratio 22.9 (12.0-20.0); Calcium, Blood 7.6 mg/dL (8.5-10.1); Creatinine, Blood 1.7 mg/dL (0.60-1.20); Potassium, Blood 4.5 mmol/L (3.5-5.5); Total Protein, Blood 5.7 g/dL (6.4-8.2)
--- NOTE | 2021-07-10 13:13 | NUR ---
Unpon receiving a referral for spiritual care, I visit the pt. Pt is lying in bed and alert. Pt is [place] and so I talk loudly to communicate, the surgical mask is a barrier to communication. Pt tells me about his many talents and skills, about his many jobs and his medical issues. He also talks about his words of wisdom to his children and grandchildren. He also shares about his Religious background but that he has not a practicing Religious for many years. He talks about how is elisha is in his ability to work through his health problems with exercise, determination and some "prayer mixed in." He shares about his dtr's 7th Day Restorationism beliefs. Pt's biggest worry is for the safety and wisdom of his granddaughters. I acknowledge his love for family, normalize his experience and provide therapeutic listening, gentle group home counselor and prayer. Patient responds well and shows signs of increased peace for his family's future. I will continue to remain available to patient and family.
--- NOTE | 2021-07-10 18:46 | NUR ---
END OF SHIFT SUMMARY MD assessed pt at bedside, the plan of care is to continue IV ABXs and expected DC home will be 1-2 days. Pt resting comfortably in bed, afebrile, VSS. CBGs over 300, ac/hs checks ordered & SSI. Pt suctions oral secretions, secretions observed to be pink tinged, frothy, MD aware, continue to monitor and notify MD if oral secretions appears to change in color/bloody.
--- NOTE | 2021-07-11 03:17 | NUR ---
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 CONTINUED TO REQUEST MORE MELATONIN, WAS NOTIFIED OF SAID REQUEST AND OREDRED ANOTHER 10 MG PO X 1. HAD SOME RESP ISSUES WELL, RT TREATMENTS ADMINISTERED. CURRENTLY RSTING MORE SOUNDLY. CALL LIGHT IN REACH
[2021-07-11 05:38] LABS: Vancomycin, Trough 17.4 ug/mL (5.0-10.0)
[2021-07-11 07:55] LABS: BASOPHILS ABSOLUTE AUTO 0.02 K/mm3 (0.00-0.23); BASOPHILS PERCENT AUTO 0 % (0-2); EOSINOPHILS PERCENT AUTO 0 % (0-6); Hematocrit 26.9 % (37.0-53.0); IMMATURE GRAN ABSOLUTE AUTO 0.18 K/mm3 (0.00-0.10); IMMATURE GRAN PERCENT AUTO 1 % (0-1); LYMPHOCYTES ABSOLUTE AUTO 0.25 K/mm3 (0.84-5.20); LYMPHOCYTES PERCENT AUTO 2 % (21-46); MONOCYTES ABSOLUTE AUTO 0.29 K/mm3 (0.16-1.47); MONOCYTES PERCENT AUTO 2 % (4-13); Mean Corpuscular HGB 31.8 pg (26.0-34.0); Mean Corpuscular HGB Conc 33.5 g/dL (31.5-36.5); Mean Corpuscular Volume 95 fL (80-100); Mean Platelet Volume 9.9 fL (9.1-12.4); NEUTROPHILS ABSOLUTE AUTO 15.63 K/mm3 (1.96-9.15); NEUTROPHILS PERCENT AUTO 96 % (41-73); Platelet Count 147 K/mm3 (150-400); RDW Coefficient Variation 13.2 % (11.7-14.2); RDW Standard Deviation 46.5 fL (35.1-46.3); Red Blood Cell Count 2.83 M/mm3 (4.30-5.90); White Blood Cell Count 16.37 K/mm3 (4.00-11.30)
[2021-07-11 08:15] LABS: Bun/Creatinine Ratio 32.2 (12.0-20.0); Calcium, Blood 7.8 mg/dL (8.5-10.1); Creatinine, Blood 1.71 mg/dL (0.60-1.20); Potassium, Blood 4.2 mmol/L (3.5-5.5)
--- NOTE | 2021-07-11 19:21 | NUR ---
SHIFT SUMMARY PT AWAKE DURING SHIFT REPORT. A&O, PLEASANT AND CO-OP WITH CARE. INDEPENDENT IN RM AND TO BTHRM. ON 4L O2 VIA NC, WHICH IS PT'S BASELINE. HX OF BL LUNG TX'S. DR JON AND DR CAMPBELL BOTH IN TO SEE PT TODAY. DR CAMPBELL LATER RETURNED THIS AFTERNOON, AFTER TALKING WITH PULMONOLOGY, TO REPORT PT CLEAR TO D/C TO HOME. D/C ORDERS PLACED. PT TO F/U DIRECTED WITH PCP AND TX PLANT TEAM. PT VERBALIZED UNDERSTANDING. NOTIFIED OF D/C. ASSISTED OUT FRONT WHEN ARRIVED. DENIED FURTHER NEEDS.
== END 2021-07-11 18:00 | disposition home or self-care (01) | DRG 205 ==
LOC: ER 04:47 → ERHOLD 06:40 → MEDS 07:54
PROVIDERS: Student in an Organized Health Care Education/Training Program; ADMIT Internal Medicine
DX: T86.812 Lung transplant infection (principal); A41.9 Sepsis, unspecified organism; J18.9 Pneumonia, unspecified organism; J44.0 Chronic obstructive pulmonary disease with (acute) lower respiratory infection; D84.821 Immunodeficiency due to drugs; Z20.822 Contact with and (suspected) exposure to COVID-19; F41.9 Anxiety disorder, unspecified; R73.9 Hyperglycemia, unspecified; K21.9 Gastro-esophageal reflux disease without esophagitis; E03.9 Hypothyroidism, unspecified; F32.A Depression, unspecified; G47.33 Obstructive sleep apnea (adult) (pediatric); M19.90 Unspecified osteoarthritis, unspecified site; Z99.81 Dependence on supplemental oxygen; Z85.46 Personal history of malignant neoplasm of prostate; Z98.890 Other specified postprocedural states; Z86.718 Personal history of other venous thrombosis and embolism; Z79.899 Other long term (current) drug therapy; Y83.8 Other surgical procedures as the cause of abnormal reaction of the patient, or of later complication, without mention of misadventure at the time of the procedure
CPT/HCPCS: 0241U; 36415; 71045; 80048; 80053; 80202; 81001; 82947; 83605; 83880; 84145; 84484; 85025; 87040; 87070; 87205; 93005; 93010; 94640; 94664; 94760; 94762; 96365; 96375; 99285-25; A9270; J0713; J1650; J1885; J2543; J2930; J3370; J7030; J7050; J7060; J7507; J7520

== ENCOUNTER 2021-07-23 21:30 | Inpatient (IN) | payer MEDICARE ==
[~2021-07-23] VITALS: Ht 167.6 cm; Wt 79.4 kg
[~2021-07-23 21:30] MED LIST changes: +ALUMINUM H320 MG/5 M; +BUMETANIDE2 M6 PO; +FLUC200 PO; +FOSAMAX70 MG PO; +KLOR-CON 1010 ME7 PO; +LOSARTAN POTASS25 M2 PO; +MONT10T; +ONDANSETRON ODT 4MG; +SIROLIMUS PO; +SULFAMETHOXAZO1 EACH PO; +TAMSULOSIN HCL0.4 M1 PO
[2021-07-24 00:46] LABS: BASOPHILS ABSOLUTE AUTO 0.03 K/mm3 (0.00-0.23); BASOPHILS PERCENT AUTO 0 % (0-2); EOSINOPHILS ABSOLUTE AUTO 0.12 K/mm3 (0.00-0.68); EOSINOPHILS PERCENT AUTO 1 % (0-6); Hematocrit 24.4 % (37.0-53.0); Hemoglobin 7.9 g/dL (13.5-17.5); IMMATURE GRAN ABSOLUTE AUTO 0.13 K/mm3 (0.00-0.10); IMMATURE GRAN PERCENT AUTO 1 % (0-1); LYMPHOCYTES ABSOLUTE AUTO 0.77 K/mm3 (0.84-5.20); LYMPHOCYTES PERCENT AUTO 8 % (21-46); MONOCYTES ABSOLUTE AUTO 0.67 K/mm3 (0.16-1.47); MONOCYTES PERCENT AUTO 7 % (4-13); Mean Corpuscular HGB 31.2 pg (26.0-34.0); Mean Corpuscular HGB Conc 32.4 g/dL (31.5-36.5); Mean Corpuscular Volume 96 fL (80-100); Mean Platelet Volume 9.4 fL (9.1-12.4); NEUTROPHILS ABSOLUTE AUTO 7.54 K/mm3 (1.96-9.15); NEUTROPHILS PERCENT AUTO 82 % (41-73); Platelet Count 150 K/mm3 (150-400); RDW Coefficient Variation 12.8 % (11.7-14.2); RDW Standard Deviation 44.9 fL (35.1-46.3); Red Blood Cell Count 2.53 M/mm3 (4.30-5.90); White Blood Cell Count 9.26 K/mm3 (4.00-11.30)
[2021-07-24 01:01] LABS: Bun/Creatinine Ratio 22.6 (12.0-20.0); Calcium, Blood 8.1 mg/dL (8.5-10.1); Creatinine, Blood 1.9 mg/dL (0.60-1.20); Potassium, Blood 5.7 mmol/L (3.5-5.5)
[2021-07-24] MEDS ORDERED: ACETADOTE200 MG/1 M PO (01:14)
[2021-07-24] MEDS ORDERED: ASPI81CH PO (01:16)
[2021-07-24] MEDS ORDERED: ATOR20 PO (01:17)
[2021-07-24] MEDS ORDERED: AZIT250 PO (01:18)
[2021-07-24] MEDS ORDERED: BETASEPT118 M1 (01:20)
[2021-07-24] MEDS ORDERED: EUTHYROX100 MC1 PO (01:22)
[2021-07-24] MEDS ORDERED: METF500 PO (01:31)
[2021-07-24] MEDS ORDERED: ATOR40TA PO (01:31)
[2021-07-24] MEDS ORDERED: NAPR500 PO (01:32)
[2021-07-24] MEDS ORDERED: PROM25 PO (01:33)
[2021-07-24] MEDS ORDERED: QUET100 PO (01:33)
[2021-07-24 05:59] LABS: BASOPHILS ABSOLUTE AUTO 0.03 K/mm3 (0.00-0.23); BASOPHILS PERCENT AUTO 0 % (0-2); EOSINOPHILS ABSOLUTE AUTO 0.15 K/mm3 (0.00-0.68); EOSINOPHILS PERCENT AUTO 2 % (0-6); Hematocrit 24.4 % (37.0-53.0); Hemoglobin 7.9 g/dL (13.5-17.5); IMMATURE GRAN ABSOLUTE AUTO 0.09 K/mm3 (0.00-0.10); IMMATURE GRAN PERCENT AUTO 1 % (0-1); LYMPHOCYTES PERCENT AUTO 10 % (21-46); MONOCYTES ABSOLUTE AUTO 0.91 K/mm3 (0.16-1.47); MONOCYTES PERCENT AUTO 10 % (4-13); Mean Corpuscular HGB 31.1 pg (26.0-34.0); Mean Corpuscular HGB Conc 32.4 g/dL (31.5-36.5); Mean Corpuscular Volume 96 fL (80-100); Mean Platelet Volume 9.8 fL (9.1-12.4); NEUTROPHILS PERCENT AUTO 77 % (41-73); Platelet Count 149 K/mm3 (150-400); RDW Coefficient Variation 13.1 % (11.7-14.2); Red Blood Cell Count 2.54 M/mm3 (4.30-5.90); White Blood Cell Count 9.58 K/mm3 (4.00-11.30)
[2021-07-24 06:23] LABS: Albumin, Blood 2.8 g/dL (3.4-5.0); Albumin/Globulin Ratio 1.1 (0.8-1.8); Bilirubin, Total 0.3 mg/dL (0.1-1.0); Bun/Creatinine Ratio 21.7 (12.0-20.0); Calcium, Blood 8.4 mg/dL (8.5-10.1); Creatinine, Blood 1.98 mg/dL (0.60-1.20); Globulin, Blood 2.6 g/dL (2.2-4.0); Potassium, Blood 5.3 mmol/L (3.5-5.5); Total Protein, Blood 5.4 g/dL (6.4-8.2)
[2021-07-24 10:36] LABS: Calcium, Blood 8.5 mg/dL (8.5-10.1); Creatinine, Blood 1.86 mg/dL (0.60-1.20); Potassium, Blood 4.8 mmol/L (3.5-5.5)
[2021-07-25 07:41] LABS: BASOPHILS ABSOLUTE AUTO 0.05 K/mm3 (0.00-0.23); BASOPHILS PERCENT AUTO 1 % (0-2); Calcium, Blood 8.2 mg/dL (8.5-10.1); EOSINOPHILS ABSOLUTE AUTO 0.12 K/mm3 (0.00-0.68); EOSINOPHILS PERCENT AUTO 2 % (0-6); Hematocrit 26.2 % (37.0-53.0); Hemoglobin 8.2 g/dL (13.5-17.5); IMMATURE GRAN ABSOLUTE AUTO 0.06 K/mm3 (0.00-0.10); IMMATURE GRAN PERCENT AUTO 1 % (0-1); LYMPHOCYTES ABSOLUTE AUTO 0.93 K/mm3 (0.84-5.20); LYMPHOCYTES PERCENT AUTO 17 % (21-46); MONOCYTES ABSOLUTE AUTO 0.59 K/mm3 (0.16-1.47); MONOCYTES PERCENT AUTO 11 % (4-13); Mean Corpuscular HGB 30.7 pg (26.0-34.0); Mean Corpuscular HGB Conc 31.3 g/dL (31.5-36.5); Mean Corpuscular Volume 98 fL (80-100); Mean Platelet Volume 10.1 fL (9.1-12.4); NEUTROPHILS ABSOLUTE AUTO 3.74 K/mm3 (1.96-9.15); NEUTROPHILS PERCENT AUTO 68 % (41-73); Platelet Count 132 K/mm3 (150-400); Potassium, Blood 5.5 mmol/L (3.5-5.5); RDW Coefficient Variation 12.8 % (11.7-14.2); RDW Standard Deviation 45.4 fL (35.1-46.3); Red Blood Cell Count 2.67 M/mm3 (4.30-5.90); White Blood Cell Count 5.49 K/mm3 (4.00-11.30)
[2021-07-25 10:11] LABS: SARS-Cov-2 (COVID-19) PCR, MMC NEGATIVE (NEGATIVE)
== END 2021-07-25 14:35 | DRG 536 ==
LOC: ER 21:30 → SURS 21:31
PROVIDERS: Emergency Medicine; Internal Medicine; ADMIT Internal Medicine
PROC: 30233N1 Transfusion of Nonautologous Red Blood Cells into Peripheral Vein, Percutaneous Approach (ICD-10-PCS; principal; 2021-07-24)
DX: S72.112A Displaced fracture of greater trochanter of left femur, initial encounter for closed fracture (principal); S32.048A Other fracture of fourth lumbar vertebra, initial encounter for closed fracture; Z94.2 Lung transplant status; J96.11 Chronic respiratory failure with hypoxia; Z20.822 Contact with and (suspected) exposure to COVID-19; M19.90 Unspecified osteoarthritis, unspecified site; K21.9 Gastro-esophageal reflux disease without esophagitis; G47.30 Sleep apnea, unspecified; F32.A Depression, unspecified; E03.9 Hypothyroidism, unspecified; E87.5 Hyperkalemia; F41.9 Anxiety disorder, unspecified; J84.10 Pulmonary fibrosis, unspecified; D63.1 Anemia in chronic kidney disease; I12.9 Hypertensive chronic kidney disease with stage 1 through stage 4 chronic kidney disease, or unspecified chronic kidney disease; N18.9 Chronic kidney disease, unspecified; E11.22 Type 2 diabetes mellitus with diabetic chronic kidney disease; Z99.81 Dependence on supplemental oxygen; Z85.46 Personal history of malignant neoplasm of prostate; Z86.718 Personal history of other venous thrombosis and embolism; W18.39XA Other fall on same level, initial encounter; Y92.009 Unspecified place in unspecified non-institutional (private) residence as the place of occurrence of the external cause
CPT/HCPCS: 36415; 72192; 73502; 73560-LT; 80048; 80053; 82947; 85025; 86850; 86900; 86901; 86923; 94640; 94664; 94760; 96374; 96375; 96376; 97161; 97530; 99285-25; A9270; G0378; J0610; J1644; J1815; J2405; J3010; J7060; J7507; U0004

== ENCOUNTER → 2022-01-23 | Outpatient (CLI) | payer MEDICARE ==
[~2022-01-23] MED LIST changes: +ACETADOTE200 MG/1 M PO; +ATOR20 PO; +ATOR40TA PO; +BETASEPT118 M1; +EUTHYROX100 MC1 PO; +METF500 PO; +NAPR500 PO; +PROM25 PO; +QUET100 PO
[2022-01-23 21:33] LABS: Percent Saturation 11.6 % (20.0-50.0)
== END | disposition home or self-care (01) ==
LOC: LAB SHORT 11:11 → LAB 11:11
PROVIDERS: Internal Medicine Hematology & Oncology
DX: D50.9 Iron deficiency anemia, unspecified (principal); E53.8 Deficiency of other specified B group vitamins
CPT/HCPCS: 82607; 82728; 82746; 83540; 83550

== ENCOUNTER 2022-02-09 03:07 | Inpatient (IN) | payer MEDICARE ==
[~2022-02-09] VITALS: Ht 167.6 cm; Wt 79.1 kg
[2022-02-09 03:35] LABS: BASOPHILS ABSOLUTE AUTO 0.04 K/mm3 (0.00-0.23); BASOPHILS PERCENT AUTO 0 % (0-2); EOSINOPHILS ABSOLUTE AUTO 0.07 K/mm3 (0.00-0.68); EOSINOPHILS PERCENT AUTO 1 % (0-6); Hematocrit 33.5 % (37.0-53.0); Hemoglobin 10.3 g/dL (13.5-17.5); IMMATURE GRAN PERCENT AUTO 1 % (0-1); LYMPHOCYTES ABSOLUTE AUTO 1.62 K/mm3 (0.84-5.20); LYMPHOCYTES PERCENT AUTO 16 % (21-46); MONOCYTES ABSOLUTE AUTO 0.53 K/mm3 (0.16-1.47); MONOCYTES PERCENT AUTO 5 % (4-13); Mean Corpuscular HGB 28.5 pg (26.0-34.0); Mean Corpuscular HGB Conc 30.7 g/dL (31.5-36.5); Mean Corpuscular Volume 93 fL (80-100); Mean Platelet Volume 9.6 fL (9.1-12.4); NEUTROPHILS PERCENT AUTO 77 % (41-73); Platelet Count 218 K/mm3 (150-400); RDW Coefficient Variation 16.7 % (11.7-14.2); RDW Standard Deviation 56.5 fL (35.1-46.3); Red Blood Cell Count 3.62 M/mm3 (4.30-5.90); White Blood Cell Count 10.46 K/mm3 (4.00-11.30)
[2022-02-09 03:51] LABS: Base Excess Venous -6.1 mmol/L; Bicarbonate Venous 19.5 mmol/L (24.0-30.0); PCO2 Venous 46.7 mmHg (38-42); pH Blood Venous 7.26 (7.34-7.37)
[2022-02-09 03:55] LABS: Anion Gap 6 mmol/L (6-16); Blood Urea Nitrogen 39 mg/dL (8-24); Bun/Creatinine Ratio 16.9 (12.0-20.0); CO2, Blood 22 mmol/L (21-32); Calcium, Blood 8.2 mg/dL (8.5-10.1); Chloride, Blood 112 mmol/L (98-108); Creatinine, Blood 2.31 mg/dL (0.60-1.20); Glomerular Filtration Rate 29 (60-); Glucose, Blood 226 mg/dL (70-99); Sodium, Blood 140 mmol/L (136-145)
[2022-02-09 04:13] LABS: Influenza A, PCR NEGATIVE (NEGATIVE); Influenza B, PCR NEGATIVE (NEGATIVE); Resp Syncytial Virus, PCR NEGATIVE (NEGATIVE); SARS-Cov-2 (COVID-19) PCR, MMC NEGATIVE (NEGATIVE)
[2022-02-09 08:48] LABS: Source, Urine Foley catheter
[2022-02-09 08:55] LABS: Appearance, Urine Clear (Clear); Bilirubin, Urine Neg (Neg); Blood, Urine 4+ (Neg); Color, Urine Yellow (P-Yellow); Glucose Qualitative, Urine 1+ (Neg); Ketones, Urine Neg (Neg); Leukocyte Esterase, Urine Neg (Neg); Nitrite, Urine Neg (Neg); Protein, Urine 3+ (Neg); Specific Gravity, Urine 1.015 (1.003-1.022); Urobilinogen, Urine NORM (Normal)
[2022-02-09 09:04] LABS: Bacteria Few /hpf; Squamous Epithelial Cells Few /hpf (Few); White Blood Cells, Urine 0-2 /hpf (0-5)
--- NOTE | 2022-02-09 09:12 | NUR ---
Admit to ICU 13 from ED 0730 Nitro Gtt 20 mcg/min. Dr. Ca would like Nitro titrated off around 1000. A/O X 4. Able to state correct location, event, and coopertive. States SOB started three days ago. Appears to be anxious and asking for SPO2 level and bipap setting freqently. Bipap 15/5, O2 increased from 2 to 4 L per patient request. SPO2 level > 95%. Pt appears diaphoretic. Sinus Tach HR 120's. Elevated Trop 262, Dr. Ca made aware. Provider called in regards to jarrett as well. Jarrett placed, pt tolerated well. Right hand and left forearm IV (infusing Nitro). BT active. Pt complains of lower dull abd pain that started this morning. States pain is on/off. Pts daughter at bedside. Updated on current care. pts to come in later to update on home meds. Call light within reach.
[2022-02-09 10:19] LABS: Bun/Creatinine Ratio 20.5 (12.0-20.0); Calcium, Blood 8.4 mg/dL (8.5-10.1); Creatinine, Blood 2.34 mg/dL (0.60-1.20); Potassium, Blood 5.2 mmol/L (3.5-5.5)
--- NOTE | 2022-02-09 10:23 | NUR ---
Update- Nitro SB Pts daughter at bedside and pt states having nausea. treated per emar and BIPAP removed. Placed on 4 L via NC, per pt this is his home settings. Tolerated well. Sinus tach HR 105. BP stable. SPO2 100%.
[2022-02-09 12:26] LABS: CPK Creatine Kinase 67 U/L (39-308)
--- NOTE | 2022-02-09 12:41 | NUR ---
Elevated Trop - Dr. Ca Provider called in regards to critical trop level of 608. Provider waiting on ECHO results.
--- NOTE | 2022-02-09 13:16 | NUR ---
PT C/O 08/17 CHEST PAIN. STATES IT IS TIGHT IN HIS CHEST; DOESN'T RADIATE ANYWHERE. NITRO GTT ON STANDBY AND UNSURE WHAT GOAL IS WITH NITRO GTT DUE TO PRIMARY NURSE BEING ON BREAK. MEDICATED WITH ONE DOSE OF SL NITRO PER ORDERS. BP 150/85; NO ST ELEVATION NOTED AT THIS TIME.
[2022-02-09] MEDS ORDERED: PRED5 PO (14:44)
[2022-02-09] MEDS ORDERED: ELIQUIS5 M2 PO (14:44)
[2022-02-09] MEDS ORDERED: TAMS.4ER PO (14:45)
[2022-02-09] MEDS ORDERED: TACR1 PO (14:45)
[2022-02-09] MEDS ORDERED: FLUC200 PO (14:46)
[2022-02-09] MEDS ORDERED: SIRO1 PO (14:46)
[2022-02-09] MEDS ORDERED: SERT50 PO (14:47)
[2022-02-09] MEDS ORDERED: SULTRIDS PO (14:47)
--- NOTE | 2022-02-09 15:29 | NUR ---
Update- Provider call - Pt with one episode of CP, resolved with SL nitro. Provider to place new orders for Heparin. Echo results in and Cardio (Dr. Pena) being consulted for decreased EF. Pt on 3 L via NC. HR 90-105. VSS. BP stable. Complains of headache, treated per emar. Call light within reach. Pts spouse at bedside and patients medications reviwed with spouse.
[2022-02-09 16:08] LABS: International Normalized Ratio 1.09; Prothrombin Time Results 11.4 Sec (9.7-11.5)
--- NOTE | 2022-02-09 17:11 | NUR ---
Shift Summary Heparin 15 U/KG/HR infusing via left hand. Pt remains A/O X4. Denies CP and nausea currently. Dr. Pena consulted by Dr. Ca and new orders recieved. Pt tolerating PO intake well. VSS. NSR. No other changes t/o shift. Call light within reach. Pt sleeping when nurse not in room. Will report to nightshift.
--- NOTE | 2022-02-09 18:25 | NUR ---
Provider visit - Dr. Pena Provider updated patient on ECHO results and treatment for CHF. Pt states understanding. Provider will return tomorrow to discuss treatment with spouse as well. Waiting to do cath as possible outpatient procedure due to patients kidney funcation. VSS.
--- NOTE | 2022-02-09 20:00 | NUR ---
ASSUMED CARE. AOX3, STATES HE IS FEELING A LITTLE ANXIOUS DUE TO FEELING OF TIGHTNESS ACROSS CHEST MOSTLY ON THE LEFT SIDE. ASKING FOR INHALER OR BREATHING TREATMENT. CALLED AND GOT ORDER FOR BD PROTOCOL, INFORMED RT WHO WILL PROVIDE. LS RHONCI T/O. SATS 99% ON 3L NC. HR IN THE 90'S. SINUS ON MONITOR WITH GOOD BP IN THE 140'S. LARGE BM NOTED, WITH SOME LIQUID, CHANGED ATTENDS AND PADS. CATH CARE PROVIDED. SKIN CARE DONE. REPOSITIONED. WILL MONITOR, CALL LIGHT IN REACH.
[2022-02-09 20:05] LABS: CPK Creatine Kinase 56 U/L (39-308)
--- NOTE | 2022-02-09 21:31 | NUR ---
LAB CALLED WITH CRTICAL HIGH TROPONIN AT [address] GRACE AND INFORMED HIM. CARDIOLOGY ALREADY ON BOARD. REPORTED THAT HE IS FEELING VERY ANXIOUS, AND PAINFUL. ORDERED HOME SEREQUEL AND WILL MEDICATE FOR PAIN.
--- NOTE | 2022-02-09 22:45 | NUR ---
SPOKE TO DR. MEJIA REARDING CONCERNS OF ELEVATION IN TROPONIN AND SX. SHE STATES AT THIS TIME SHE WILL STILL WAIT TO TAKE HIM TO THE [facility]. SHE JUST STARTED HIM ON SOME MEDS AND WILL LIKE TO SEE THAT START WORKING FIRST AND HIS CREATINE DOWN. ALSO SPOKE TO DR. VILLAVICENCIO REGARDING PAIN, ANXIETY AND HEARTBURN THE PATIENT IS EXPERIENCING. MEDS ORDERED.
--- NOTE | 2022-02-09 23:53 | NUR ---
LAB CALLED WITH PTT RESULTS OF >139. CHASE FROM PHARMACY CALLED AND VERFIED IT WAS DRAWN FROM OPPOSITE ARM OF HEPARIN INFUSING. HEPARIN ON HOLD AT THIS TIME FOR 1 HOUR. SONNY IS FEELING BETTER, PAIN IS STILL PRESENT, GAVE FENTANYL 25MCQ. ANXIETY IS IMPROVED. HE HAS GOTTEN SLEEPY FROM THE SEREQUAL AND FENTANYL, SATS ARE HOLDING AT 99%. NEW ATTENDS PLACED DUE TO LEAKAGE OF CATH. FLUSHED CATH NO BLOCKAGE.
--- NOTE | 2022-02-10 00:57 | NUR ---
PATIENT IS SLEEPING WELL AT THIS TIME, APPEARS TO BE COMFORTABLE. SATS 93 CURRENTLY.
--- NOTE | 2022-02-10 05:37 | NUR ---
SHIFT SUMMARY: AOX3, ABLE TO MAKE NEEDS KNOWN. CONTINUES ON HEPARIN GTT AT 12UNITS/KG/HR. CONTINUES TO HAVE HEADACHES. GOT ORDER FOR FENTANYL AND GAVE 25MCQ WHICH ALLOWED HIM TO SLEEP WELL. HE GOT TUMS FOR HEARTBURN. AFEBRILE. MILD CHEST PAIN TO THE LEFT SIDE ON AVERAGE 4/10. LS RHONCI T/O, 3LNC T/O NIGHT, HAS MAINTAINED SATS. NON-PRODUCTIVE. DID REPORT CHEST TIGHTNESS AND DIFFICULTY BREATHING, HE WAS STARTED ON BD PROTOCOL WHICH HELPED. SINUS ON MONITOR WITH RATE IN THE 80'S, BP WNL. TROPONIN JUMPED UP INTO THE 900'S. MD WAS MADE AWARE. COHEN OUPUT 1100, OCCATIONALLY WILL LEAK SMALL AMOUNTS. INCONTIENT OF STOOL 1 MEDIUM NOTED. BRUSING TO LEFT FOOT AND SWELLING, PATIENT IS NOT SURE IF HE FELL OR WHAT OCCURRED. NO OTHER CHANGES TO NOTE, WILL REPORT OFF.
[2022-02-10 07:47] LABS: BASOPHILS ABSOLUTE AUTO 0.04 K/mm3 (0.00-0.23); BASOPHILS PERCENT AUTO 1 % (0-2); EOSINOPHILS ABSOLUTE AUTO 0.14 K/mm3 (0.00-0.68); EOSINOPHILS PERCENT AUTO 2 % (0-6); Hematocrit 31.7 % (37.0-53.0); IMMATURE GRAN ABSOLUTE AUTO 0.03 K/mm3 (0.00-0.10); IMMATURE GRAN PERCENT AUTO 1 % (0-1); LYMPHOCYTES ABSOLUTE AUTO 1.13 K/mm3 (0.84-5.20); LYMPHOCYTES PERCENT AUTO 18 % (21-46); MONOCYTES ABSOLUTE AUTO 0.63 K/mm3 (0.16-1.47); MONOCYTES PERCENT AUTO 10 % (4-13); Mean Corpuscular HGB 28.3 pg (26.0-34.0); Mean Corpuscular HGB Conc 31.5 g/dL (31.5-36.5); Mean Corpuscular Volume 90 fL (80-100); Mean Platelet Volume 10.6 fL (9.1-12.4); NEUTROPHILS ABSOLUTE AUTO 4.46 K/mm3 (1.96-9.15); NEUTROPHILS PERCENT AUTO 69 % (41-73); Platelet Count 184 K/mm3 (150-400); RDW Coefficient Variation 17.1 % (11.7-14.2); RDW Standard Deviation 56.2 fL (35.1-46.3); Red Blood Cell Count 3.53 M/mm3 (4.30-5.90); White Blood Cell Count 6.43 K/mm3 (4.00-11.30)
[2022-02-10 08:21] LABS: Albumin, Blood 2.6 g/dL (3.4-5.0); Albumin/Globulin Ratio 0.9 (0.8-1.8); Bilirubin, Total 0.4 mg/dL (0.1-1.0); Bun/Creatinine Ratio 18.3 (12.0-20.0); Calcium, Blood 8.4 mg/dL (8.5-10.1); Creatinine, Blood 2.62 mg/dL (0.60-1.20); Globulin, Blood 2.8 g/dL (2.2-4.0); Potassium, Blood 4.9 mmol/L (3.5-5.5); Total Protein, Blood 5.4 g/dL (6.4-8.2)
--- NOTE | 2022-02-10 12:30 | NUR ---
REASSESSMENT PT HAS BEEN RESTING IN BED THROUGHOUT THE MORNING. REMAINS ON 3L/NC WITH SPO2 IN THE UPPER 90S, BUT HE STATES THAT HE WEARS 4L NORMALLY AT HOME. SR, BP STABLE. HEPARIN STOPPED FOR 2 HOURS THIS AM THEN RESTARTED PER PHARMACY INSTRUCTIONS. PT FELT NAUSEOUS AFTER EATING BREAKFAST, RESOLVED WITH ZOFRAN AND TOLERATING LUNCH SO FAR. OFFERED PT BATH BUT HE REFUSED THIS AM, WILL TRY AGAIN THIS AFTERNOON. PT'S CAME BY THIS AM AND WAS UPDATED BY NURSING STAFF. DR. GIBBONS CAME BY AND GAVE OK FOR PT TO BE PCU STATUS.
--- NOTE | 2022-02-10 17:40 | NUR ---
SHIFT SUMMARY PT'S LUNG SOUNDS HAVE IMPROVED THROUGHOUT THE SHIFT. THEY WERE QUITE COARSE IN THE MORNING AND NOW JUST HAVE SOME EXPIRATORY WHEEZES. REMAINS ON 3L/NC (HOME O2 IS 4L/NC) WITH SPO2 100%. SR, BP STABLE. PT'S TELE SHOWS SOME ST DEPRESSION IN LEAD 2 THAT SHOWED UP LAST NIGHT AROUND MIDNIGHT. REVIEWED THIS WITH DR. ULLOA, EKG REPEATED AND ST DEPRESSION DOES NOT SHOW UP ON THE 12 LEAD. PT COMPALINS OF SOME DIFFUSE ACHINESS ACROSS HIS SHOULDERS AND CHEST THAT WAS RELIEVED WITH TYLENOL. PT'S WAS IN AND OUT THROUGHOUT THE DAY AND WAS UPDATED BY DR. ULLOA.
--- NOTE | 2022-02-10 19:28 | NUR ---
ASSUMED CARE. RT WAS IN THE ROOM PROVIDEING TREATMENT. PATIENT STATES HE FEELS HIS SECRETIONS ARE THICK AND DIFFICULT TO GET UP. RT DISCUSSED SOME SALINE INHALATION TO HELP THIN THEM. STATES HEADACHE IS STILL PRESENT, DENIES ANY CHEST PAIN AT THIS TIME. SINUS ON MONITOR RATE IN THE 80'S. BP STABLE. WILL MEDICATE PER EMAR. CALL LIGHT IS IN REACH.
[2022-02-11 04:12] LABS: BASOPHILS ABSOLUTE AUTO 0.03 K/mm3 (0.00-0.23); BASOPHILS PERCENT AUTO 1 % (0-2); EOSINOPHILS ABSOLUTE AUTO 0.11 K/mm3 (0.00-0.68); EOSINOPHILS PERCENT AUTO 2 % (0-6); Hematocrit 27.5 % (37.0-53.0); Hemoglobin 8.7 g/dL (13.5-17.5); IMMATURE GRAN ABSOLUTE AUTO 0.03 K/mm3 (0.00-0.10); IMMATURE GRAN PERCENT AUTO 1 % (0-1); LYMPHOCYTES ABSOLUTE AUTO 0.85 K/mm3 (0.84-5.20); LYMPHOCYTES PERCENT AUTO 17 % (21-46); MONOCYTES ABSOLUTE AUTO 0.49 K/mm3 (0.16-1.47); MONOCYTES PERCENT AUTO 10 % (4-13); Mean Corpuscular HGB 28.2 pg (26.0-34.0); Mean Corpuscular HGB Conc 31.6 g/dL (31.5-36.5); Mean Corpuscular Volume 89 fL (80-100); Mean Platelet Volume 10.7 fL (9.1-12.4); NEUTROPHILS ABSOLUTE AUTO 3.47 K/mm3 (1.96-9.15); NEUTROPHILS PERCENT AUTO 70 % (41-73); Platelet Count 157 K/mm3 (150-400); RDW Coefficient Variation 16.4 % (11.7-14.2); RDW Standard Deviation 53.7 fL (35.1-46.3); Red Blood Cell Count 3.09 M/mm3 (4.30-5.90); White Blood Cell Count 4.98 K/mm3 (4.00-11.30)
[2022-02-11 04:32] LABS: Bun/Creatinine Ratio 20.3 (12.0-20.0); Creatinine, Blood 2.61 mg/dL (0.60-1.20); Potassium, Blood 4.9 mmol/L (3.5-5.5)
--- NOTE | 2022-02-11 05:47 | NUR ---
SHIFT SUMMARY: PT CONT. TO HAVE SEVERE ANXIETY. MADE IT DIFFICULT FOR HIM TO RELAX AND SLEEP. WAS GIVEN ATIVAN AND FENTANYL. CONT. TO HAVE HEADACHE BACK OF HEAD AROUND TO THE LEFT EYE, WAS GIVEN FORICEPT TO HELP, STATES ONLY MINOR CHANGES. NO CHEST PAIN NOTED THIS SHIFT. BUT DID HAVE NECK AND BODY ACHES. HEATING PAD ALSO PROVIDED. VS WNL. SINUS WIHT ST DEPRESSION UNCHANGED FROM YESTERDAY. TROPONINS TRENDING DOWN, LAST 281. CREATINE STILL ELEVATED DISPITE INCREASE IN URINE OUTPUT TO 1500. BLE STILL +2 EDEMA. CONT ON 3L NC, LS CLEAR IN UPPER AND CRACKLES IN LOWER. HEPARIN GTT INFUSING NOW AT 11 UNITS/KG/HR. CALL LIGHT IN REACH, WILL REPORT OFF.
--- NOTE | 2022-02-11 17:48 | NUR ---
PT SUMMARY: PT TRANSITIONED TO MEDICAL WITH TELE. NO ACUTE CHANGE FOR THE SHIFT. VITALS HAS BEEN STABLE, PT C/O HEAD ACHE 6/10 RELIEVED WITH TYLENOL. PT DENIES CHEST PAIN PT STATED HE HAD SPASMS BUT NOT PAIN. PT RECEIVED A BED BATH TODAY, TOELRATED WELL. DR MADSEN CAME IN TO SEE PT, ORDERED ONE TIME DOSE OF SOLUMEDROL IV 125MG FOR WHEEZING, DR MADSEN MADED AWARE THAT PT IS GETTING PREDNISONE 5MG. PT ALSO RECEIVING BREATHING TX. COHEN DRAINING VIA GRAVITY PT PUT OUT MORE THAN 1L OF URINE OUTPUT LELA YELLOW IN COLOR. NO OTHER ISSUES ENCOUNTERED, PT HAS BEEN RESTING IN BED MOST OF THE SHIFT, PT ABLE TO REPOSITION SELF INDEPENDENTLY IN BED, ABLE TO MAKE NEEDS KNOWN, CALLS APPROPRIATELY WILL REPORT TO ONCOMING SHIFT
--- NOTE | 2022-02-11 17:58 | NUR ---
PT SUMMARY: AM NOTES: PT WAS ABLE TO SWITCH TO REGULAR NASAL CANNULA TODAY FROM AIRVO AT 4.5L. PT WAS PLEASANT COOPERATIVE ALERT AND ORIENTED X3. VITALS HRR AFIB 90-115'S, SBP 130-160'S, SATS ABOVE 90% ON 4.5L OF O2, AFEBRILE. PT DENIES ANY CHEST PAIN/PRESSURE. DR STOCKTON CAME IN THE ROOM TO SEE PT WOULD LIKE AN OUTPT FF-UP. PT REFUSED LUNCH OFFERED GLUCERNA CONSUMED 100%. PM NOTES: PT STARTED HAVING ANXIETY AFTER LUNCH TIME PT STARTED GETTING RESTLESS IN BED TOSSING IN TURNING COULDNT GET COMFORTABLE, PT WAS REPOSITIONED THEN PT STARTED GETTING SHORT OF BREATH DESATTING TO 84%, HRR AFIB WENT UP TO 140-150'S, SBP ELEVATED AT 160-170'S. DR MELTON WAS CALLED SUSPECTING PT WAS HAVING ANXIETY ORDERED 0.5MG OF ATIVAN FOLLOWED BY METOPROLOL 5MG IV HEART RATE WAS STILL UP TO 140'S. PT THEN FELL ASLEEP HEART RATE WAS SUSTAINED AT 100-120'S. AFTER AN HOUR PT WOKE UP GETTING CONFUSED PULLING ON GOWNS AND LINES HEART RATE WENT UP AGAIN TO 140-160'S GOT REALLY SHORT OF BREATH REGULAR NASAL CANNULA WAS SWITCHED TO HIFLO NOW AT 6L SATS KEPT ABOVE 90%, PT STARTED ON CARDIZEM GTT AT 5MG/HR THEN TITRATED TO 10 MG/HR AFTER 30 MINS HEART RATE IS NOT IMPROVING. SBP 110-140'S. PT REMAINS IN BED WITH BED ALARM ON FOR SAFETY. NO OTHER ISSUES ENCOUNTERED AT THIS TIME. WILL REPORT TO ONCOMING SHIFT
[2022-02-12 04:00] LABS: Hematocrit 31.7 % (37.0-53.0); Hemoglobin 10.1 g/dL (13.5-17.5)
[2022-02-12 05:03] LABS: Albumin, Blood 2.6 g/dL (3.4-5.0); Anion Gap 11 mmol/L (6-16); Blood Urea Nitrogen 68 mg/dL (8-24); Bun/Creatinine Ratio 21.1 (12.0-20.0); CO2, Blood 26 mmol/L (21-32); Calcium, Blood 8.3 mg/dL (8.5-10.1); Chloride, Blood 98 mmol/L (98-108); Creatinine, Blood 3.23 mg/dL (0.60-1.20); Glomerular Filtration Rate 20 (60-); Glucose, Blood 429 mg/dL (70-99); Magnesium, Blood 1.8 mg/dL (1.6-2.4); Phosphorus, Blood 5.7 mg/dL (2.5-4.9); Potassium, Blood 5.5 mmol/L (3.5-5.5); Sodium, Blood 135 mmol/L (136-145)
--- NOTE | 2022-02-12 05:47 | NUR ---
Shift summary: Neuro: Pt alert and oriented x3-4, was a little confused with the time of day. 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 He is very N[place]. Cardiac: SR with ST depression, HR in the 80s and BP normal. He remains on a Heparin drip at 10 units/hr. Denies any CP Resp: Remains on 3L NC and satting 95-100%. Clear/crackles lung sounds and only received one breathing treatment over night. GI: No BM over night. : Has a jarrett draining yellow urine.
--- NOTE | 2022-02-12 08:18 | NUR ---
ASSUMED CARE PT. ALERT AND ORIENTED THIS AM. SITTING UP IN BED. PT CURRENTLY ON 3LNC, SPO2 WNL. VSS THIS AM. REMAINS ON HEPARIN GTT, DENIES ANY CHEST PAIN OR PRESSURE THIS AM. LS COARSE, PRODUCTIVE COUGH, PT HAS SUCTION AT BEDSIDE. CALL LIGHT IN REACH. DR. GIBBONS IN TO ASSESS PT DISCUSSED INCREASED BG. AWAITING ORDERS AT THIS TIME. ALL NEEDS MET AT THIS TIME.
--- NOTE | 2022-02-12 10:30 | NUR ---
DR. MEJIA IN TO SEE PT. PER ORDER HEPARIN GTT PLACED ON STAND BY AT THIS TIME.
--- NOTE | 2022-02-12 14:30 | NUR ---
CALL TO PT ROOM FOR PAIN TO MID ABD. PT. REPORTS SHARP PAIN TO MID UPPER ABD WHEN ATTEMPTING TO RAISE HEAD AND SIT UP IN BED. PT DENIES PAIN IN CHEST WALL, DENIES PAIN THAT RADIATES. PT. REPORTS THE PAIN IS SHARP, NOT CONSTANT. THE PAIN DOES NOT WORSEN WITH DEEP BREATHING BUT PT DOES NOTICE IT WHEN COUGHING. PT STATES "MAYBE ITS CRAMPS?", MED FOR PAIN WITH FENTANYL. AFTER APPROX 20MIN, ROUNDED ON PT TO CHECK ON PAIN, PT REPORTS PAIN IS IMPROVED AFTER MEDICATION ADMINISTRATION.
--- NOTE | 2022-02-12 16:00 | NUR ---
ROUNDED ON PT PT REPORTS PAIN IS "COMPLETELY GONE". WATER PROVIDED.
--- NOTE | 2022-02-12 16:45 | NUR ---
REPORT TO MEDICAL FLOOR RN. ALL BELONGINGS IN ROOM INCLUDING PHONE OIL BOILER GATHERED AND TAKEN TO FLOOR WITH PATIENT.
--- NOTE | 2022-02-12 19:26 | NUR ---
SHIFT SUMMARY PT UP FROM ICU. PT ALERT AND ORIENTED, CALLS APPROPRIATELY. PT ON 3L NC, SPO2 > 92 %. SUCTION SETUP PER PT REQUEST. PT INDEPENDENT IN BED. NO C/O PAIN. WILL CONTINUE TO MONITOR. CALL LIGHT WITHIN REACH
[2022-02-13 06:58] LABS: Hematocrit 27.7 % (37.0-53.0); Hemoglobin 9.1 g/dL (13.5-17.5)
[2022-02-13 07:28] LABS: Albumin, Blood 2.5 g/dL (3.4-5.0); Anion Gap 9 mmol/L (6-16); Blood Urea Nitrogen 88 mg/dL (8-24); Bun/Creatinine Ratio 27.6 (12.0-20.0); CO2, Blood 26 mmol/L (21-32); Calcium, Blood 7.3 mg/dL (8.5-10.1); Chloride, Blood 101 mmol/L (98-108); Creatinine, Blood 3.19 mg/dL (0.60-1.20); Glomerular Filtration Rate 20 (60-); Glucose, Blood 192 mg/dL (70-99); Magnesium, Blood 1.9 mg/dL (1.6-2.4); Phosphorus, Blood 4.9 mg/dL (2.5-4.9); Potassium, Blood 4.7 mmol/L (3.5-5.5); Sodium, Blood 136 mmol/L (136-145)
--- NOTE | 2022-02-13 08:36 | NUR ---
Rn summary: Patient is alert and oriented. Pt is [place]. Pt was transfered from ICU prior to shift. Pt did c/o some respiratory distress requiring resp treatments. Pt was on 3 liters O2 sating mid 90's. Patient was tried on a cpap but pt did not tolerate it for more than 45 min. Pt lung sounds were diminished, dry cough. Pt c/o anxiety, medicated x1 with ativan 1mg. He was able to rest on and off after that. Pt with jarrett cath draining yellow urine. Tele shows SR. Pt has no C/O chest pain. Call light in reach.
--- NOTE | 2022-02-13 16:57 | NUR ---
PT HAS NO ACUTE CHANGES AT THIS TIME. NO RESPIRATORY DISTRESS NOTED AND PT ON 3 L SATING MID 90s. PT HAS BEEN RESTING SOUNDLY MOST OF THE DAY. PT REPOSITIONED EVERY COUPLE HOURS. COHEN PATENT AT THIS TIME. CALL LIGHT WITHIN REACH WILL CONTINUE TO MONITOR.
--- NOTE | 2022-02-14 05:15 | NUR ---
SHIFT SUMMARY: Pt A/Ox3 and call light appropriate. Overnight pt did not get much sleep. He is on 3L O2 and at night wears a CPAP with O2 bled in. He wore his CPAP for a few hours and then refused it. Educated on importance. Pt Jigar pulled, he has since voided. No c/o pain, nausea, or numbness/tingling. Lung sounds this shift were very coarse. Requested PRN neb. His legs had +1 edema.
[2022-02-14 08:17] LABS: Albumin, Blood 2.6 g/dL (3.4-5.0); Anion Gap 8 mmol/L (6-16); Blood Urea Nitrogen 92 mg/dL (8-24); Bun/Creatinine Ratio 30.7 (12.0-20.0); CO2, Blood 27 mmol/L (21-32); Calcium, Blood 7.9 mg/dL (8.5-10.1); Chloride, Blood 105 mmol/L (98-108); Glomerular Filtration Rate 22 (60-); Glucose, Blood 120 mg/dL (70-99); Phosphorus, Blood 4.5 mg/dL (2.5-4.9); Potassium, Blood 4.4 mmol/L (3.5-5.5); Sodium, Blood 140 mmol/L (136-145)
--- NOTE | 2022-02-14 18:06 | NUR ---
SHIFT SUMMARY NO ACUTE CHANGES DURING SHIFT. PT ALERT AND ORIENTED, [place]. PT REMAINS ON 3L NC, SPO2 > 92%. CPAP QHS. PHYSICAL THERAPY ORDERED FOR PT. COHEN REMOVED PREVIOUS SHIFT, PT VOIDING PER URINAL. NO C/O PAIN. WILL CONTINUE TO MONITOR. CALL LIGHT WITHIN REACH.
[2022-02-15 05:17] LABS: Hematocrit 28.7 % (37.0-53.0); Hemoglobin 9.2 g/dL (13.5-17.5)
--- NOTE | 2022-02-15 05:45 | NUR ---
Rn summary: Patient is alert and oriented. He continues to have SOB. He is on 3 liters O2, breath sounds with expiratory wheezxing throughout. Pt uses the oral yanchar suction, he feels often that he has a lot of mucus down in his lungs, he requests respiratory treaments frequently. Pt did have sharp mid epigastric pain which he took tums for, he also had melatonin for sleep that may have helped some. Pt was medicated with ativan 0.5mg at 0228 with good relief and was able to sleep. Pt is voiding well. Call light in reach.
[2022-02-15 05:50] LABS: Albumin, Blood 2.8 g/dL (3.4-5.0); Anion Gap 7 mmol/L (6-16); Blood Urea Nitrogen 73 mg/dL (8-24); Bun/Creatinine Ratio 24.8 (12.0-20.0); CO2, Blood 27 mmol/L (21-32); Chloride, Blood 106 mmol/L (98-108); Creatinine, Blood 2.94 mg/dL (0.60-1.20); Glomerular Filtration Rate 22 (60-); Glucose, Blood 97 mg/dL (70-99); Magnesium, Blood 2.1 mg/dL (1.6-2.4); Phosphorus, Blood 4.2 mg/dL (2.5-4.9); Potassium, Blood 4.2 mmol/L (3.5-5.5); Sodium, Blood 140 mmol/L (136-145)
[2022-02-15] MEDS ORDERED: BACTRIM 400-801 EACH PO (13:10)
[2022-02-15] MEDS ORDERED: AMLO5 PO (13:12)
[2022-02-15] MEDS ORDERED: BUTALB-ACETAMI1 EAC6 PO (13:13)
[2022-02-15] MEDS ORDERED: FURO40 PO (13:14)
[2022-02-15] MEDS ORDERED: CLOP75 PO (13:14)
[2022-02-15] MEDS ORDERED: INSULIN GL100 UNIT/2 SC (13:15)
[2022-02-15] MEDS ORDERED: MELATONIN 5 MG1 EACH PO (13:16)
[2022-02-15] MEDS ORDERED: ISOSORBIDE MONO60 MG PO (13:16)
[2022-02-15] MEDS ORDERED: METO50ER PO (13:17)
[2022-02-15] MEDS ORDERED: QUET100 PO (13:17)
[2022-02-15] MEDS ORDERED: LOKELMA10 GM PO (13:17)
[2022-02-15] MEDS ORDERED: TRAM50 PO (13:19)
--- NOTE | 2022-02-15 13:43 | NUR ---
DISCHARGE SUMMARY PT DISCHARGING HOME WITH TODAY WITH HOME HEALTH ORDERED. PT IS AxOx4. PLEASANT AND COOPERATIVE WITH CARE. PT DENIES ANY PAIN/DISCOMFORT THIS SHIFT. VITALS REVIEWED. PT AND WERE GIVEN DISCHARGE INSTRUCTIONS INCLUDING DC MEDICATION LIST, FOLLOW UP APPOINTMENTS, HOME HEALTH REFERRAL AND PATIENT EDUCATION. PT AND VERBALIZE UNDERSTANDING AND DENY ANY FURTHER QUESTIONS AT THIS TIME. PT TRANSFERRED TO AND SAFELY ESCORTED OUT WITH LAB ANIMAL TECHNICIAN.
== END 2022-02-15 14:02 | disposition home health service (06) | DRG 280 ==
LOC: ER 03:07 → ICUW 06:17 → MEDS 06:17 → ICUW 07:43 → MEDS 02-12 17:00
PROVIDERS: Internal Medicine; Internal Medicine Nephrology; Student in an Organized Health Care Education/Training Program; ADMIT Internal Medicine
PROC: 5A09357 Assistance with Respiratory Ventilation, Less than 24 Consecutive Hours, Continuous Positive Airway Pressure (ICD-10-PCS; principal; 2022-02-09)
DX: I21.4 Non-ST elevation (NSTEMI) myocardial infarction (principal); I50.21 Acute systolic (congestive) heart failure; J96.21 Acute and chronic respiratory failure with hypoxia; J96.22 Acute and chronic respiratory failure with hypercapnia; I13.0 Hypertensive heart and chronic kidney disease with heart failure and stage 1 through stage 4 chronic kidney disease, or unspecified chronic kidney disease; N17.9 Acute kidney failure, unspecified; Z94.2 Lung transplant status; E87.1 Hypo-osmolality and hyponatremia; N18.30 Chronic kidney disease, stage 3 unspecified; E11.22 Type 2 diabetes mellitus with diabetic chronic kidney disease; D63.1 Anemia in chronic kidney disease; G47.33 Obstructive sleep apnea (adult) (pediatric); J84.10 Pulmonary fibrosis, unspecified; M19.90 Unspecified osteoarthritis, unspecified site; K21.9 Gastro-esophageal reflux disease without esophagitis; F32.A Depression, unspecified; E83.51 Hypocalcemia; R31.29 Other microscopic hematuria; R80.9 Proteinuria, unspecified; E11.65 Type 2 diabetes mellitus with hyperglycemia; E83.39 Other disorders of phosphorus metabolism; E03.9 Hypothyroidism, unspecified; C61 Malignant neoplasm of prostate; E87.5 Hyperkalemia; I49.3 Ventricular premature depolarization; Z20.822 Contact with and (suspected) exposure to COVID-19; Z79.899 Other long term (current) drug therapy; Z79.82 Long term (current) use of aspirin; Z79.02 Long term (current) use of antithrombotics/antiplatelets; Z99.81 Dependence on supplemental oxygen; Z79.4 Long term (current) use of insulin; Z92.25 Personal history of immunosuppression therapy; Z79.2 Long term (current) use of antibiotics; Z86.718 Personal history of other venous thrombosis and embolism; Z79.84 Long term (current) use of oral hypoglycemic drugs; Z96.653 Presence of artificial knee joint, bilateral; Z92.21 Personal history of antineoplastic chemotherapy; Z92.3 Personal history of irradiation; Z98.890 Other specified postprocedural states; Z87.891 Personal history of nicotine dependence; Z79.01 Long term (current) use of anticoagulants; Z79.52 Long term (current) use of systemic steroids; Z79.51 Long term (current) use of inhaled steroids
CPT/HCPCS: 0241U; 36415; 51703; 71045; 76770; 80048; 80053; 80069; 80197; 81001; 82550; 82803; 82947; 83735; 83880; 84484; 85014; 85018; 85025; 85610; 85730; 87040; 93005; 93010; 93306; 94640; 94660; 94664; 94760; 94762; 96365; 96375; 97116; 97162; 99291-25; A9270; J0881; J1644; J1815; J1940; J2060; J2405; J2930; J3010; J7507; J7512

== ENCOUNTER → 2022-02-22 | Outpatient (CLI) | payer MEDICARE ==
[~2022-02-22] MED LIST changes: +AMLO5 PO; +BUTALB-ACETAMI1 EAC6 PO; +CLOP75 PO; +ELIQUIS5 M2 PO; +FURO40 PO; +INSULIN GL100 UNIT/2 SC; +ISOSORBIDE MONO60 MG PO; +LOKELMA10 GM PO; +MELATONIN 5 MG1 EACH PO; +METO50ER PO; +SERT50 PO
[2022-02-22 15:56] LABS: Hemoglobin 10.2 g/dL (13.5-17.5)
[2022-02-22 16:19] LABS: Albumin, Blood 3.1 g/dL (3.4-5.0); Anion Gap 6 mmol/L (6-16); Blood Urea Nitrogen 40 mg/dL (8-24); Bun/Creatinine Ratio 18.5 (12.0-20.0); CO2, Blood 24 mmol/L (21-32); Chloride, Blood 109 mmol/L (98-108); Creatinine, Blood 2.16 mg/dL (0.60-1.20); Glomerular Filtration Rate 32 (60-); Glucose, Blood 131 mg/dL (70-99); Phosphorus, Blood 4.6 mg/dL (2.5-4.9); Potassium, Blood 4.9 mmol/L (3.5-5.5); Sodium, Blood 139 mmol/L (136-145)
== END ==
LOC: LAB 13:50 → LAB SHORT 13:50
PROVIDERS: Internal Medicine
DX: N18.4 Chronic kidney disease, stage 4 (severe) (principal)
CPT/HCPCS: 80069; 85014; 85018

== ENCOUNTER → 2022-03-08 | Outpatient (CLI) | payer MEDICARE ==
[2022-03-08 10:07] LABS: Hematocrit 32.6 % (37.0-53.0); Hemoglobin 10.5 g/dL (13.5-17.5); Mean Corpuscular HGB 28.7 pg (26.0-34.0); Mean Corpuscular HGB Conc 32.2 g/dL (31.5-36.5); Mean Corpuscular Volume 89 fL (80-100); Mean Platelet Volume 10.2 fL (9.1-12.4); Platelet Count 177 K/mm3 (150-400); RDW Standard Deviation 52.3 fL (35.1-46.3); Red Blood Cell Count 3.66 M/mm3 (4.30-5.90); White Blood Cell Count 6.24 K/mm3 (4.00-11.30)
[2022-03-08 10:27] LABS: Bun/Creatinine Ratio 22.7 (12.0-20.0); Calcium, Blood 8.3 mg/dL (8.5-10.1); Creatinine, Blood 1.98 mg/dL (0.60-1.20); Potassium, Blood 4.1 mmol/L (3.5-5.5)
== END ==
LOC: LAB SHORT 09:15
PROVIDERS: Internal Medicine
DX: N18.30 Chronic kidney disease, stage 3 unspecified (principal); Z94.2 Lung transplant status; I50.21 Acute systolic (congestive) heart failure; J84.10 Pulmonary fibrosis, unspecified
CPT/HCPCS: 80048; 80195; 80197; 85027

== ENCOUNTER 2022-04-16 23:54 | Emergency (ER) | payer OTHER, MEDICARE ==
[~2022-04-16] VITALS: Ht 177.8 cm; Wt 86.2 kg
== END 2022-04-17 01:36 | disposition home or self-care (01) ==
LOC: ER 23:54
DX: S70.02XA Contusion of left hip, initial encounter (principal); S80.02XA Contusion of left knee, initial encounter; W01.0XXA Fall on same level from slipping, tripping and stumbling without subsequent striking against object, initial encounter
CPT/HCPCS: 73502; 82947; 99284-25

== ENCOUNTER 2022-04-17 16:34 | Inpatient (IN) | payer MEDICARE ==
[~2022-04-17] VITALS: Ht 167.6 cm; Wt 77.3 kg
[2022-04-17 17:16] LABS: BASOPHILS ABSOLUTE AUTO 0.04 K/mm3 (0.00-0.23); BASOPHILS PERCENT AUTO 0 % (0-2); EOSINOPHILS ABSOLUTE AUTO 0.05 K/mm3 (0.00-0.68); EOSINOPHILS PERCENT AUTO 1 % (0-6); Hematocrit 31.5 % (37.0-53.0); Hemoglobin 10.4 g/dL (13.5-17.5); IMMATURE GRAN ABSOLUTE AUTO 0.05 K/mm3 (0.00-0.10); IMMATURE GRAN PERCENT AUTO 1 % (0-1); LYMPHOCYTES ABSOLUTE AUTO 0.61 K/mm3 (0.84-5.20); LYMPHOCYTES PERCENT AUTO 6 % (21-46); MONOCYTES PERCENT AUTO 4 % (4-13); Mean Corpuscular HGB 28.9 pg (26.0-34.0); Mean Corpuscular Volume 88 fL (80-100); Mean Platelet Volume 9.4 fL (9.1-12.4); NEUTROPHILS ABSOLUTE AUTO 8.43 K/mm3 (1.96-9.15); NEUTROPHILS PERCENT AUTO 88 % (41-73); Platelet Count 127 K/mm3 (150-400); RDW Coefficient Variation 15.2 % (11.7-14.2); RDW Standard Deviation 48.1 fL (35.1-46.3); White Blood Cell Count 9.58 K/mm3 (4.00-11.30)
[2022-04-17 17:40] LABS: Albumin, Blood 3.3 g/dL (3.4-5.0); Albumin/Globulin Ratio 1.3 (0.8-1.8); Bilirubin, Total 0.4 mg/dL (0.1-1.0); Bun/Creatinine Ratio 18.1 (12.0-20.0); Calcium, Blood 8.1 mg/dL (8.5-10.1); Creatinine, Blood 2.32 mg/dL (0.60-1.20); Globulin, Blood 2.6 g/dL (2.2-4.0); Potassium, Blood 5.4 mmol/L (3.5-5.5); Total Protein, Blood 5.9 g/dL (6.4-8.2)
--- NOTE | 2022-04-17 20:30 | NUR ---
ARRIVAL: PT ARRIVED TO THE UNIT AND WAS TRANSFERED TO THE BED USING A SLIDER SHEET. VITALS WERE TAKEN BY THE DYE BOARDING MACHINE OPERATOR. PT WAS PLACED BACK ON 5L OF OXYGEN AND THE PT REPORTED DECREASED SOB AT THIS TIME. VSS. DENIED CHEST PAIN OR N/T. PT REPORTED PAIN TO BE WELL MANAGED AND RATED PAIN A 2/10 AT THIS TIME. WILL MANAGE PAIN PER EMAR ORDERS IF NECESSARY. ASSESSMENT TO FOLLOW.
[2022-04-18 06:12] LABS: BASOPHILS ABSOLUTE AUTO 0.01 K/mm3 (0.00-0.23); BASOPHILS PERCENT AUTO 0 % (0-2); EOSINOPHILS PERCENT AUTO 0 % (0-6); Hematocrit 32.6 % (37.0-53.0); Hemoglobin 10.5 g/dL (13.5-17.5); IMMATURE GRAN ABSOLUTE AUTO 0.03 K/mm3 (0.00-0.10); IMMATURE GRAN PERCENT AUTO 1 % (0-1); LYMPHOCYTES ABSOLUTE AUTO 0.18 K/mm3 (0.84-5.20); LYMPHOCYTES PERCENT AUTO 3 % (21-46); MONOCYTES ABSOLUTE AUTO 0.02 K/mm3 (0.16-1.47); MONOCYTES PERCENT AUTO 0 % (4-13); Mean Corpuscular HGB 28.3 pg (26.0-34.0); Mean Corpuscular HGB Conc 32.2 g/dL (31.5-36.5); Mean Corpuscular Volume 88 fL (80-100); Mean Platelet Volume 9.8 fL (9.1-12.4); NEUTROPHILS ABSOLUTE AUTO 5.59 K/mm3 (1.96-9.15); NEUTROPHILS PERCENT AUTO 96 % (41-73); Platelet Count 120 K/mm3 (150-400); RDW Coefficient Variation 15.1 % (11.7-14.2); RDW Standard Deviation 48.3 fL (35.1-46.3); Red Blood Cell Count 3.71 M/mm3 (4.30-5.90); White Blood Cell Count 5.83 K/mm3 (4.00-11.30)
--- NOTE | 2022-04-18 06:25 | NUR ---
SHIFT SUMMARY: PT ARRIVED TO THE UNIT FOR A L HIP FX. PT ALSO CAME INTO THE ER FOR SOB, THAT HAS SINCE RESOLVED. AWAITING SURGICAL CONSULT. PT DID TAKE PLAVIX ON 04/17/22 LAST. HAS REMAINED NPO. ON VIA NC. VSS. LUNGS SOUND COARSE AND PT HAS OCCASSIONAL PRODUCTIVE COUGH. SPUTUM SAMPLE COLLECTED. PT RESTING AT THIS TIME WITH CALL LIGHT IN REACH. WILL GIVE REPORT TO DAY TIME RN.
[2022-04-18 06:36] LABS: Albumin, Blood 3.1 g/dL (3.4-5.0); Bilirubin, Total 0.6 mg/dL (0.1-1.0); Calcium, Blood 8.1 mg/dL (8.5-10.1); Creatinine, Blood 2.55 mg/dL (0.60-1.20); Total Protein, Blood 6.1 g/dL (6.4-8.2)
--- NOTE | 2022-04-18 11:54 | NUR ---
IV SITE (LFA) FROM PREVIOUS ADMIT STILL BLEEDING. SITE COVERED WITH GAUZE. GAUZE AND COBAN REMOVED, TRIPLE ABX OINTMENT AND NON ADHERANT PAD PLACED, COBAN USED TO SECURE DRESSING.
[2022-04-18 14:13] LABS: Base Excess Venous -7.2 mmol/L; Bicarbonate Venous 19.1 mmol/L (24.0-30.0); pH Blood Venous 7.34 (7.34-7.37)
--- NOTE | 2022-04-18 15:00 | NUR ---
DAY SURGERY HIRAM TIMMONS NOTIFIED THAT PT LAST TOOK ELIQUIS, PLAVIX AND ASA ON 04/17 AT APPROXIMATELY [id number].
--- NOTE | 2022-04-18 16:19 | NUR ---
SHIFT SUMMARY PT HAVING SURGERY TODAY. PAIN MANAGED WITH FENTANYL. FAMILY AT THE BEDSIDE FOR SUPPORT.
--- NOTE | 2022-04-18 16:31 | NUR ---
04/18/22 1631 Jessa Alcazar NEW 20G IV STARTED IN RT WRIST BY OR NURSE MELINDA.
--- NOTE | 2022-04-18 19:47 | NUR ---
DECREASED URINE OUTPUT DR. RAMIREZ NOTIFIED OF DECREASED URINE OUTPUT AND BLADDER SCAN OF 141. PO FLUIDS ENCOURAGED AND IV FLUIDS INCREASED TO 100ML/HOUR PER DR. RAMIREZ. LOW SLIDING SCALE ORDERED FOR INCREASED BLOOD GLUCOSE.
--- NOTE | 2022-04-18 19:51 | NUR ---
OOZING FROM SURGICAL SITE DRAINAGE FROM L HIP SURGICAL SITE INCREASING SINCE PT ARRIVED TO THE ROOM. ICE AND RAMIRO WRAP APPLIED TO SURGICAL SITE. NOC RN NOTIFIED. REQUESTED SONJA DAVISON TO RETURN CALL AND MESSAGE LEFT WITH OR REQUESTING DR. FERRELL TO SEE PT THIS EVENING.
--- NOTE | 2022-04-18 23:45 | NUR ---
ASSUMED CARE: REPORT TAKEN FROM LAMONTE LAWSON RN. ASSUMED CARE AT THIS TIME. ASSESSED PT. DENIED SOB OR CHEST PAIN. AQUACEL X1 TO LEFT HIP. SLIGHT OOZING AND MODERATE AMOUNT OF DRAINAGE NOTED. RAMIRO WRAP WAS OVER INCISION AND DRESSING. TELEMETRY IN PLACE. SCD'S IN PLACE. DENYING N/T IN EXTREMITIES. REPORTING PAIN OF 7/10, WILL MANAGE PER EMAR ORDERS. PT APPEARS TO BE STABLE AT THIS TIME AND IN NO DISTRESS. CALL LIGHT WITHIN REACH.WILL CONTINUE TO ASSESS T/O THE SHIFT.
[2022-04-19 05:10] LABS: Base Excess Venous -5.4 mmol/L; Bicarbonate Venous 20.5 mmol/L (24.0-30.0); PCO2 Venous 28.7 mmHg (38-42); pH Blood Venous 7.43 (7.34-7.37)
[2022-04-19 05:30] LABS: BASOPHILS ABSOLUTE AUTO 0.01 K/mm3 (0.00-0.23); BASOPHILS PERCENT AUTO 0 % (0-2); EOSINOPHILS PERCENT AUTO 0 % (0-6); Hematocrit 23.4 % (37.0-53.0); Hemoglobin 7.7 g/dL (13.5-17.5); IMMATURE GRAN ABSOLUTE AUTO 0.07 K/mm3 (0.00-0.10); IMMATURE GRAN PERCENT AUTO 1 % (0-1); LYMPHOCYTES ABSOLUTE AUTO 0.31 K/mm3 (0.84-5.20); LYMPHOCYTES PERCENT AUTO 4 % (21-46); MONOCYTES ABSOLUTE AUTO 0.33 K/mm3 (0.16-1.47); MONOCYTES PERCENT AUTO 4 % (4-13); Mean Corpuscular HGB 28.5 pg (26.0-34.0); Mean Corpuscular HGB Conc 32.9 g/dL (31.5-36.5); Mean Corpuscular Volume 87 fL (80-100); Mean Platelet Volume 9.6 fL (9.1-12.4); NEUTROPHILS ABSOLUTE AUTO 6.94 K/mm3 (1.96-9.15); NEUTROPHILS PERCENT AUTO 91 % (41-73); Platelet Count 114 K/mm3 (150-400); RDW Coefficient Variation 15.4 % (11.7-14.2); RDW Standard Deviation 48.4 fL (35.1-46.3); White Blood Cell Count 7.66 K/mm3 (4.00-11.30)
[2022-04-19 05:48] LABS: Bun/Creatinine Ratio 22.5 (12.0-20.0); Calcium, Blood 7.1 mg/dL (8.5-10.1); Creatinine, Blood 3.51 mg/dL (0.60-1.20); Potassium, Blood 5.3 mmol/L (3.5-5.5)
--- NOTE | 2022-04-19 06:24 | NUR ---
PHYSICIAN CONTACT: CALLED AND SPOKE TO DR. GIBBONS REGARDING PT URINARY OUTPUT. INFORMED HIM THAT BLADDER SCAN WAS >162. REPORTED THAT PER PT HE DOES NOT FEEL LIKE HE HAS TO URINATE. HX OF CKD. PROVIDER STATES THAT HE WANTS TO CONTINUE FLUIDS AND DC LASIX, PROVIDER PUT IN ORDER TO DC MEDICATION.
--- NOTE | 2022-04-19 06:39 | NUR ---
SHIFT SUMMARY: PODx1 L HIP PINNING. BANDAGE CHANGED TO XEROFOAM, 4X4, AND TAPE. MODERATE EXUDATE NOTED ON THE BANDAGE. NO OOZING NOTED. HAS NOT REACHED THE BOARDER. FLUIDS CONTINUE TO RUN. PT HAD LOW URINARY OUTPUT THIS SHIFT, DR. GIBBONS CONSULTED (SEE PREVIOUS NOTE.) FLUIDS CONTINUE TO RUN AND LASIX DC. TOLERATING PO FLUIDS WELL. PT WAS PAINFUL T/O THE SHIFT AND IT WAS MANAGED PER EMAR ORDERS. WILL GIVE REPORT TO DAY TIME RN. PT RESTING AT THIS TIME WITH CALL LIGHT IN REACH.
[2022-04-19 16:06] LABS: Percent Saturation 19.8 % (20.0-50.0)
--- NOTE | 2022-04-19 18:45 | NUR ---
SHIFT SUMMARY PT IS POD#1 FROM L HIP PINNING WITH DR. FERRELL. PT HAS BEEN SOMNOLENT T/O THE DAY BUT WAKES WHEN SPOKEN TO. HE HAS BEEN ABLE TO WAKE FOR MEALS AND WAS ABLE TO WORK WITH PHYSICAL THERAPY. PT HAS CONTINUED TO HAVE LIGHT TO MODERATE OUTPUT FROM HIS INCISION SITE. RAMIRO WRAP APPLIED AROUND THIGH, SONJA DAVISON AWARE. PAIN HAS BEEN MANAGED WITH TYLENOL, ULTRAM AND ICE. PT ENCOURAGED TO USE HIS INCENTIVE SPIROMETER WHEN AWAKE. PT ON 4L O2 VIA NC WHICH IS HIS BASELINE. FAMILY HAS BEEN AT THE BEDSIDE FOR SUPPORT. WILL CONTINUE TO MONITOR UNTIL REPORT TO NOC RN.
[2022-04-20 04:18] LABS: BASOPHILS PERCENT AUTO 0 % (0-2); EOSINOPHILS ABSOLUTE AUTO 0.05 K/mm3 (0.00-0.68); EOSINOPHILS PERCENT AUTO 1 % (0-6); Hemoglobin 7.6 g/dL (13.5-17.5); IMMATURE GRAN ABSOLUTE AUTO 0.04 K/mm3 (0.00-0.10); IMMATURE GRAN PERCENT AUTO 1 % (0-1); LYMPHOCYTES ABSOLUTE AUTO 0.56 K/mm3 (0.84-5.20); LYMPHOCYTES PERCENT AUTO 8 % (21-46); MONOCYTES ABSOLUTE AUTO 0.52 K/mm3 (0.16-1.47); MONOCYTES PERCENT AUTO 7 % (4-13); Mean Corpuscular HGB 28.9 pg (26.0-34.0); Mean Corpuscular Volume 88 fL (80-100); Mean Platelet Volume 10.7 fL (9.1-12.4); NEUTROPHILS ABSOLUTE AUTO 6.33 K/mm3 (1.96-9.15); NEUTROPHILS PERCENT AUTO 84 % (41-73); Platelet Count 125 K/mm3 (150-400); RDW Coefficient Variation 15.3 % (11.7-14.2); RDW Standard Deviation 48.2 fL (35.1-46.3); Red Blood Cell Count 2.63 M/mm3 (4.30-5.90)
[2022-04-20 04:44] LABS: Albumin, Blood 2.5 g/dL (3.4-5.0); Bilirubin, Total 0.2 mg/dL (0.1-1.0); Bun/Creatinine Ratio 24.5 (12.0-20.0); Calcium, Blood 6.9 mg/dL (8.5-10.1); Creatinine, Blood 3.31 mg/dL (0.60-1.20); Globulin, Blood 2.5 g/dL (2.2-4.0)
--- NOTE | 2022-04-20 06:46 | NUR ---
SHIFT SUMMARY AOX4. VSS. TELE NSR HR 71. POD 2- L HIP PINNING. REPORTS 5/10 L HIP PAIN, MEDICATED 2x c TYLENOL & TRAMADOL. AQUACEL HAD GOLFBALL SIZE SHADOWING UNDER DRESSING @BEGINNING OF SHIFT & THIS AM AQUACEL WAS SATURATED c DARK RED DRAINAGE, CHANGED DRESSING. NONPITTING EDEMA TO L HIP, ICE & RAMIRO WRAP USED. SPO2 >92% ON 4L O2 OR CPAP, DENIES DYSPNEA, DOES HAVE COARSE BS T/O. TOLERATING PO FLUIDS & DIET. CALL LIGHT IN REACH & PT ABLE TO MAKE NEEDS KNOWN.
--- NOTE | 2022-04-20 13:30 | NUR ---
DR BISHOP GAVE VERBAL ORDERS TO DC TELE.
--- NOTE | 2022-04-20 17:09 | NUR ---
SHIFT SUMMARY NO ACUTE CHANGES THIS SHIFT. PATIENT IS POD 2 LEFT HIP PINNING. AQUACEL TO LEFT HIP, LIGHT SHADOWING NOTED, DRY & INTACT. MODERATE PAIN REPORTED BY PATIENT TO LEFT HIP, MEDICATED PER EMAR. PATIENT WORKED WITH PHYSICAL THERAPY, GOT TO EDGE OF BED MODERATE 1P ASSIST, STOOD A FEW TIMES AT EDGE OF BED WITH FWW & GB, DECLINED ATTEMPTING TO GET TO CHAIR OR UP TO CHAIR FOR MEALS. VOIDING W/O DIFFICULTY IN URINAL. TOELRATING ADA PO DIET. SALINE LOCKED PER MD ORDERS. CALLS APPROPRIATELY, IN REACH. WILL REPORT TO ONCOMING RN AT 1900.
--- NOTE | 2022-04-21 04:25 | NUR ---
POD3 LEFT HIP PINNING. SENSATION AND CIRCULATION REMAINS INTACT IN LLE AQUACEL IS INTACT, RAMIRO WRAP REMAINS ON LEFT THIGH. VSS. PT SLEPT ON AND OFF. MEDICATED FOR PAIN WITH ULTRAM AND TYLENOL. PT VOIDING W/O DIFFICULTY INTO URINAL AND TOLLERATING PO INTAKE. NO BM'S NOTED. PT ENCOURAGED T/O THE NIGHT TO REPOSITION AND USE ICE. PT WAS ABLE TO USE ICE BUT REFUSED REPOSIOTIONING. NO ACUTE EVENTS T/O THE NIGHT. PLAN FOR PT TO WORK WITH PT/OT UNTIL HE CAN D/C HOME. THE PATIENT IS CURRENTLY SLEEPING, IN NO DISTRESS, CALL LIGHT IN REACH.
[2022-04-21 07:59] LABS: Hematocrit 23.4 % (37.0-53.0); Hemoglobin 7.9 g/dL (13.5-17.5); Mean Corpuscular HGB 29.5 pg (26.0-34.0); Mean Corpuscular HGB Conc 33.8 g/dL (31.5-36.5); Mean Corpuscular Volume 87 fL (80-100); Mean Platelet Volume 10.1 fL (9.1-12.4); Platelet Count 110 K/mm3 (150-400); RDW Coefficient Variation 14.9 % (11.7-14.2); RDW Standard Deviation 47.2 fL (35.1-46.3); Red Blood Cell Count 2.68 M/mm3 (4.30-5.90); White Blood Cell Count 6.16 K/mm3 (4.00-11.30)
[2022-04-21 08:30] LABS: Albumin, Blood 2.5 g/dL (3.4-5.0); Anion Gap 4 mmol/L (6-16); Blood Urea Nitrogen 77 mg/dL (8-24); Bun/Creatinine Ratio 28.5 (12.0-20.0); CO2, Blood 20 mmol/L (21-32); Calcium, Blood 7.4 mg/dL (8.5-10.1); Chloride, Blood 116 mmol/L (98-108); Glomerular Filtration Rate 24 (60-); Glucose, Blood 53 mg/dL (70-99); Phosphorus, Blood 4.7 mg/dL (2.5-4.9); Potassium, Blood 4.6 mmol/L (3.5-5.5); Sodium, Blood 140 mmol/L (136-145)
--- NOTE | 2022-04-21 15:55 | NUR ---
PATIENT C/O LEFT KNEE PAIN. THIS RN PALCED ICE AT THIS TIME. NOTIFIED MD VIA TELEPHONE MESSAGE.
--- NOTE | 2022-04-21 17:57 | NUR ---
SHIFT SUMMARY NO ACUTE CHANGES THIS SHIFT. PAIN MANAGED PER EMAR, AQUACEL TO LEFT HIP, CHANGED THIS AM, C/D/I AT THIS TIME. PATEINT REFUSES CHAIR FOR MEALS, RELUCTANT TO WORK WITH PHYSICAL THERAPY ALTHOUGH ADAMINT ABOUT DISCHARGING HOME RATHER THAN SNF. CBGS LOW THIS AM ALTHOUGH CAME UP WITH ORANGE JUICE WELL, STABLE SINCE THIS AM. TOLERATING PO INTAKE WELL. VOIDING WELL. NO BM, BOWEL CARE GIVEN. CALLS APPROPRIATELY, IN REACH. WILL REPORT TO ONCCHASE RN AT 1900.
--- NOTE | 2022-04-22 06:35 | NUR ---
SHIFT SUMMARY POD 4- L HIP PINNING. REFUSED GETTING OOB TO RECLINER @[facility], STATES WORRIED ABOUT FALLING & "I JUST CANT, I CANT". EDUCATED PT ON IMPORTANCE OF MOBILITY FOR HEALING & GETTING TO GO HOME. VERY ANXIOUS. PT AGREED TO GET TO RECLINER IN AM. REPORTS CONSTANT 6-7/10 PAIN IN L HIP/LEG, MEDICATED 1x c TYLENOL, 2x c 50MG ULTRAM & 1X c 25MCG IV FENTANYL BEFORE TRANSFERRING TO RECLINER THIS AM. PT STATES PAIN NEVER CHANGES, HOWEVER AFTER FENTANYL WAS GIVEN PT NODDING OFF & FALLING ASLEEP. L HIP AQUACEL C/D/I. MILD DEPENDENT EDEMA TO L HIP. VSS. CALL LIGHT IN REACH & PT ABLE TO MAKE NEEDS KNOWN.
--- NOTE | 2022-04-22 18:32 | NUR ---
SHIFT SUMMARY PT A&OX4, VSS/4LNC(BASE), WINSTON PO, VOIDING/URINAL, PAIN MGMT IMPROVED WITH ULTRAM 100 MG BID AND TYLENOL Q6, FENT 25 MCG X2, STAND PIVOT TRANSFER W/FWW & GB TO BED/CHAIR. POD4 L HIP PERC PIN, AQUACEL CDI. WILL REPORT TO ONCOMING NOC RN.
--- NOTE | 2022-04-23 05:54 | NUR ---
SHIFT SUMMARY AOX4. COEUR D'ALENE. POD 5-L HIP PINNING. REPORTS PAIN IN L HIP IS BETTER TODAY THEN PREVIOUS, RATES PAIN LEVEL 5/10, MEDICATED 1x c TYLENOL & 100MG ULTRAM. DENIES N/T. CAP REFIL <3. ABLE TO WIGGLE TOES L FOOT. VSS. CALL LIGHT IN REACH & PT ABLE TO MAKE NEEDS KNOWN.
[2022-04-23] MEDS ORDERED: Ultram50 MG PO (12:18)
[2022-04-23] MEDS ORDERED: CODACE30 PO (12:19)
[2022-04-23] MEDS ORDERED: MIRALAX17 GM PO (12:21)
[2022-04-23] MEDS ORDERED: HUMALOG KW100 UNIT/1 (12:22)
--- NOTE | 2022-04-23 12:49 | NUR ---
DISCHARGE SUMMARY PT A&OX4, VSS/RA, WINSTON PO, OXYGEN 5LNC BASE, PAIN MANAGED WELL, 1 PP MOD ASSIST UP TO CHAIR. DC INS PROVIDED. PT AND REP UNDERSTANDING THOSE INSTRUCTIONS INCLUDING FU APPT WITH PCP RE ASA/PLAVIX/ELIQUIS, PAIN MANAGEMENT ULTRAM 100 MG BID X 7 DAYS AND TYLENOL, STOOL SOFTENERS, DRESSING CHANGES. 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
[2022-04-23] MEDS ORDERED: Acetaminophen650 M1 PO (18:25)
[2022-04-24] MEDS ORDERED: CEFP200 PO (13:05)
== END 2022-04-23 13:02 | disposition home health service (06) | DRG 481 ==
LOC: ER 16:34 → SURS 18:25
PROVIDERS: Emergency Medicine; Internal Medicine; Orthopaedic Surgery; ADMIT Internal Medicine
PROC: 4A133R1 Monitoring of Arterial Saturation, Peripheral, Percutaneous Approach (ICD-10-PCS; 2022-04-18)
PROC: 0QS734Z Reposition Left Upper Femur with Internal Fixation Device, Percutaneous Approach (ICD-10-PCS; principal; 2022-04-18 15:30)
DX: S72.012A Unspecified intracapsular fracture of left femur, initial encounter for closed fracture (principal); E87.1 Hypo-osmolality and hyponatremia; Z94.2 Lung transplant status; E87.21 Acute metabolic acidosis; I50.22 Chronic systolic (congestive) heart failure; N17.9 Acute kidney failure, unspecified; J96.11 Chronic respiratory failure with hypoxia; N18.4 Chronic kidney disease, stage 4 (severe); J84.10 Pulmonary fibrosis, unspecified; M19.90 Unspecified osteoarthritis, unspecified site; K21.9 Gastro-esophageal reflux disease without esophagitis; G47.33 Obstructive sleep apnea (adult) (pediatric); F32.A Depression, unspecified; E03.9 Hypothyroidism, unspecified; C61 Malignant neoplasm of prostate; J44.9 Chronic obstructive pulmonary disease, unspecified; E87.5 Hyperkalemia; E11.22 Type 2 diabetes mellitus with diabetic chronic kidney disease; Z99.81 Dependence on supplemental oxygen; Z86.718 Personal history of other venous thrombosis and embolism; Z98.890 Other specified postprocedural states; Z87.891 Personal history of nicotine dependence; Z99.89 Dependence on other enabling machines and devices; Z79.890 Hormone replacement therapy; Z79.4 Long term (current) use of insulin; Z79.01 Long term (current) use of anticoagulants; Z79.82 Long term (current) use of aspirin; Z79.899 Other long term (current) drug therapy; W18.39XA Other fall on same level, initial encounter
CPT/HCPCS: 36415; 71045; 73502; 73700; 80048; 80053; 80069; 82728; 82803; 82947; 83540; 83550; 83880; 84132; 84484; 85025; 85027; 86850; 86900; 86901; 87070; 87077; 87186; 87205; 93005; 93010; 93970; 94640; 94660; 94664; 94762; 96374; 96375; 97110; 97162; 97530; 99285-25; A9270; C1713; C1769; J0690; J1100; J1170; J1815; J1940; J2250; J2405; J2704; J2930; J3010; J7030; J7120; J7507; J7520

== ENCOUNTER → 2022-05-10 | Outpatient (CLI) | payer MEDICARE ==
[~2022-05-10] MED LIST changes: +Acetaminophen650 M1 PO; +CODACE30 PO; +HUMALOG KW100 UNIT/1; +MIRALAX17 GM PO; +Ultram50 MG PO
[2022-05-10 10:38] LABS: BASOPHILS ABSOLUTE AUTO 0.03 K/mm3 (0.00-0.23); BASOPHILS PERCENT AUTO 1 % (0-2); EOSINOPHILS ABSOLUTE AUTO 0.32 K/mm3 (0.00-0.68); EOSINOPHILS PERCENT AUTO 6 % (0-6); Hematocrit 20.8 % (37.0-53.0); Hemoglobin 6.8 g/dL (13.5-17.5); IMMATURE GRAN ABSOLUTE AUTO 0.03 K/mm3 (0.00-0.10); IMMATURE GRAN PERCENT AUTO 1 % (0-1); LYMPHOCYTES ABSOLUTE AUTO 1.11 K/mm3 (0.84-5.20); LYMPHOCYTES PERCENT AUTO 20 % (21-46); MONOCYTES ABSOLUTE AUTO 0.51 K/mm3 (0.16-1.47); MONOCYTES PERCENT AUTO 9 % (4-13); Mean Corpuscular HGB 29.2 pg (26.0-34.0); Mean Corpuscular HGB Conc 32.7 g/dL (31.5-36.5); Mean Corpuscular Volume 89 fL (80-100); Mean Platelet Volume 10.1 fL (9.1-12.4); NEUTROPHILS ABSOLUTE AUTO 3.69 K/mm3 (1.96-9.15); NEUTROPHILS PERCENT AUTO 65 % (41-73); Platelet Count 233 K/mm3 (150-400); RDW Coefficient Variation 14.7 % (11.7-14.2); RDW Standard Deviation 47.4 fL (35.1-46.3); Red Blood Cell Count 2.33 M/mm3 (4.30-5.90); White Blood Cell Count 5.69 K/mm3 (4.00-11.30)
[2022-05-10 11:57] LABS: Bun/Creatinine Ratio 21.9 (12.0-20.0); Calcium, Blood 8.4 mg/dL (8.5-10.1); Creatinine, Blood 2.42 mg/dL (0.60-1.20); Potassium, Blood 4.8 mmol/L (3.5-5.5)
== END | disposition home or self-care (01) ==
LOC: LAB 09:00 → LAB SHORT 09:00
PROVIDERS: Internal Medicine
DX: Z48.24 Encounter for aftercare following lung transplant (principal); Z79.899 Other long term (current) drug therapy
CPT/HCPCS: 80048; 85025

== ENCOUNTER → 2022-05-22 | Outpatient (CLI) | payer MEDICARE ==
[2022-05-22 17:44] LABS: Bilirubin, Urine Neg (Neg); Blood, Urine 1+ (Neg); Color, Urine Yellow (P-Yellow); Glucose Qualitative, Urine Neg (Neg); Ketones, Urine Neg (Neg); Leukocyte Esterase, Urine Neg (Neg); Nitrite, Urine Neg (Neg); Protein, Urine 3+ (Neg); Specific Gravity, Urine 1.015 (1.003-1.022); Urobilinogen, Urine NORM (Normal)
[2022-05-22 17:54] LABS: Appearance, Urine Hazy (Clear)
[2022-05-22 17:55] LABS: Amorphous Light (0-Heavy); Bacteria Many /hpf; Mucus Light (0-Heavy)
[2022-05-22 17:56] LABS: Hyaline Casts 0-2 /lpf (0-2); Squamous Epithelial Cells Rare /hpf (Few); White Blood Cells, Urine 0-2 /hpf (0-5)
== END | disposition home or self-care (01) ==
LOC: LAB SHORT 13:30 → LAB HH 13:30
PROVIDERS: Internal Medicine
DX: E11.22 Type 2 diabetes mellitus with diabetic chronic kidney disease (principal); I13.0 Hypertensive heart and chronic kidney disease with heart failure and stage 1 through stage 4 chronic kidney disease, or unspecified chronic kidney disease; N18.4 Chronic kidney disease, stage 4 (severe); I50.9 Heart failure, unspecified
CPT/HCPCS: 81001; 87086

== ENCOUNTER → 2022-05-28 | Outpatient (CLI) | payer MEDICARE ==
[2022-05-28 19:09] LABS: BASOPHILS ABSOLUTE AUTO 0.03 K/mm3 (0.00-0.23); BASOPHILS PERCENT AUTO 1 % (0-2); EOSINOPHILS ABSOLUTE AUTO 0.08 K/mm3 (0.00-0.68); EOSINOPHILS PERCENT AUTO 1 % (0-6); Hematocrit 24.7 % (37.0-53.0); Hemoglobin 7.7 g/dL (13.5-17.5); IMMATURE GRAN ABSOLUTE AUTO 0.05 K/mm3 (0.00-0.10); IMMATURE GRAN PERCENT AUTO 1 % (0-1); LYMPHOCYTES PERCENT AUTO 9 % (21-46); MONOCYTES ABSOLUTE AUTO 0.31 K/mm3 (0.16-1.47); MONOCYTES PERCENT AUTO 5 % (4-13); Mean Corpuscular HGB 28.6 pg (26.0-34.0); Mean Corpuscular HGB Conc 31.2 g/dL (31.5-36.5); Mean Corpuscular Volume 92 fL (80-100); Mean Platelet Volume 9.8 fL (9.1-12.4); NEUTROPHILS ABSOLUTE AUTO 5.55 K/mm3 (1.96-9.15); NEUTROPHILS PERCENT AUTO 84 % (41-73); Platelet Count 250 K/mm3 (150-400); RDW Coefficient Variation 15.9 % (11.7-14.2); RDW Standard Deviation 52.9 fL (35.1-46.3); Red Blood Cell Count 2.69 M/mm3 (4.30-5.90); White Blood Cell Count 6.62 K/mm3 (4.00-11.30)
[2022-05-28 21:55] LABS: Albumin, Blood 3.3 g/dL (3.4-5.0); Albumin/Globulin Ratio 1.1 (0.8-1.8); Bilirubin, Total 0.3 mg/dL (0.1-1.0); Bun/Creatinine Ratio 20.7 (12.0-20.0); Calcium, Blood 8.8 mg/dL (8.5-10.1); Creatinine, Blood 1.88 mg/dL (0.60-1.20); Globulin, Blood 3.1 g/dL (2.2-4.0); Total Protein, Blood 6.4 g/dL (6.4-8.2)
== END | disposition home or self-care (01) ==
LOC: LAB SHORT 16:55
PROVIDERS: Family Medicine
DX: D64.9 Anemia, unspecified (principal)
CPT/HCPCS: 80053; 85025

== ENCOUNTER → 2022-05-30 | Outpatient (CLI) | payer MEDICARE | END | disposition home or self-care (01) | LOC: LAB SHORT 11:45 → LAB 11:45 | DX: R10.9 Unspecified abdominal pain (principal) | CPT/HCPCS: 87086 ==